=== PATIENT | female | born 1945 | race Caucasian/White ===

== ENCOUNTER → 2016-09-20 | Outpatient (CLI) | payer MEDICARE, BC ==
--- NOTE | 2016-09-21 09:26 | MM ---
Reason for exam: screening (asymptomatic). Last mammogram was performed 1 year ago. History: Patient is postmenopausal. Family history of breast cancer in daughter at age 40. Took hormonal contraceptives beginning at age 21. Took estrogen beginning at age 37. Taking other hormone. Physical Findings: A clinical breast exam by your physician is recommended on an annual basis and results should be correlated with mammographic findings. MG 3D Screening Mammo W/Cad Bilateral CC and MLO view(s) were taken. Prior study comparison: September 16, 2015, bilateral MG screening mammo w CAD. September 14, 2014, bilateral MG screening mammo w CAD. The breast tissue is extremely dense which could obscure a lesion on mammography. Benign calcifications. There is no dominant lesion. No significant changes when compared with prior studies. ASSESSMENT: Benign, BI-RAD 2 RECOMMENDATION: Routine screening mammogram of both breasts in 1 year.
== END | disposition home or self-care (01) ==
LOC: RADMAMWWP 11:36
PROVIDERS: ATTEND Obstetrics & Gynecology
DX: Z12.31 Encounter for screening mammogram for malignant neoplasm of breast (principal)
CPT/HCPCS: 77063; G0202

== ENCOUNTER → 2017-10-22 | Outpatient (CLI) | payer MEDICARE, BC ==
--- NOTE | 2017-10-23 10:04 | MM ---
Reason for exam: screening (asymptomatic). Last mammogram was performed 1 year and 1 month ago. History: Patient is postmenopausal. Family history of breast cancer in daughter at age 40. Took hormonal contraceptives beginning at age 21. Took estrogen beginning at age 37. Taking other hormone. Physical Findings: A clinical breast exam by your physician is recommended on an annual basis and results should be correlated with mammographic findings. MG 3D Screening Mammo W/Cad Bilateral CC and MLO view(s) were taken. Prior study comparison: September 20, 2016, bilateral MG 3d screening mammo w/cad. September 16, 2015, bilateral MG screening mammo w CAD. The breast tissue is heterogeneously dense. This may lower the sensitivity of mammography. Finding: There are typically benign vascular, dystrophic, round calcifications in both breasts. There is no discrete abnormality. ASSESSMENT: Benign, BI-RAD 2 RECOMMENDATION: Routine screening mammogram of both breasts in 1 year. Manage on a clinical basis with regard to left nipple itch.
== END | disposition home or self-care (01) ==
LOC: RADMAMWWP 12:59
PROVIDERS: ATTEND Obstetrics & Gynecology
DX: Z12.31 Encounter for screening mammogram for malignant neoplasm of breast (principal)
CPT/HCPCS: 77063; 77067

== ENCOUNTER → 2017-10-31 | Day surgery (SDC) | payer MEDICARE, BC ==
[2017-10-25 10:10] VITALS: BMI 36.6
[~2017-10-31] MED LIST: LACTATED RINGERS 1,000 ML IV SCH; LIDOCAINE 1% INJ 10MG/ML (20 ML MDV) ONE; PROPOFOL 10 MG/ML 20 ML VIAL IV ONE
[2017-10-31 11:43] VITALS: RESP 16; TEMP 97.2
--- NOTE | 2017-10-31 12:43 | P.PCN ---
Date of Procedure: 10/31/17 Procedure(s) Performed: BRIEF HISTORY: Patient is a 72-year-old pleasant white female, scheduled for an elective colonoscopy as a part of evaluation of change in bowel habits and rectal bleeding on 2 different occasions in the last 1 month duration. PROCEDURE PERFORMED: Colonoscopy with snare polypectomy PREOPERATIVE DIAGNOSIS: Abdominal pain/rectal bleeding. IV sedation per Anesthesia. PROCEDURE: After informed consent was obtained, the patient, was brought into the endoscopy unit. IV sedation was administered by Anesthesia under continuous monitoring. Digital rectal examination was normal. Initially the Olympus CF- 160 flexible video colonoscope was then inserted in the rectum, gradually advanced into the cecum without any difficulty. Careful examination was performed as the scope was gradually being withdrawn. Ileocecal valve and the appendiceal orifice were visualized and appeared normal. Prep was excellent. Mucosa of the cecum, appeared normal. In the ascending colon there was a 1 cm flat polyp that was removed by snare polypectomy. ascending colon, transverse colon, descending colon, sigmoid colon, and rectum appeared normal. Scattered sigmoid diverticulosis seen. Retroflexion was performed in the rectum and small internal hemorrhoids were seen. The patient tolerated the procedure well. IMPRESSION: 1 cm of flat ascending colon polyp serous was snare polypectomy Scattered sigmoid diverticulosis Small internal hemorrhoids RECOMMENDATIONS: Findings of this examination were discussed with the patient as well as her family. She was advised to follow with the biopsy results and have a repeat colonoscopy in 5 years..
[2017-10-31 13:01] VITALS: BP 145/79; PULSE 6
== END ==
LOC: ORWHC2ENDO 09:55
PROVIDERS: ATTEND Internal Medicine Gastroenterology
DX: D12.2 Benign neoplasm of ascending colon (principal); K57.30 Diverticulosis of large intestine without perforation or abscess without bleeding; K64.8 Other hemorrhoids; I10 Essential (primary) hypertension; J45.909 Unspecified asthma, uncomplicated; K21.9 Gastro-esophageal reflux disease without esophagitis; Z79.899 Other long term (current) drug therapy; Z79.82 Long term (current) use of aspirin; Z79.1 Long term (current) use of non-steroidal anti-inflammatories (NSAID); Z88.5 Allergy status to narcotic agent; Z88.1 Allergy status to other antibiotic agents
CPT/HCPCS: 88305; 45385; J2001; J2704

== ENCOUNTER 2018-06-19 08:58 | Inpatient (IN) | payer MEDICARE, BC ==
--- NOTE | 2018-06-19 09:25 | ED ---
General Adult HPI - General Chief complaint: Shortness of Breath Stated complaint: SOB Time Seen by Provider: 06/19/18 09:09 Source: patient, RN notes reviewed, old records reviewed Mode of arrival: wheelchair Limitations: no limitations - History of Present Illness Initial comments: 73-year-old female history of asthma, COPD, hypertension presenting with 4 days of worsening dyspnea. 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 She's had pulmonary function tests, she is given Symbicort and albuterol. She's had no improvement in her dyspnea over the past several days. It has worsened, she does complain of orthopnea and PND. She denies lower extremity pain or swelling. Denies significant chest pain, complains of some mild chest discomfort. No cough, no fever or chills. She was scheduled to receive an echocardiogram however this has not been completed. - Related Data Home Medications Medication Instructions Recorded Confirmed Aspirin 81 mg PO DAILY 03/09/15 06/19/18 Atenolol [Tenormin] 25 mg PO DAILY 03/09/15 06/19/18 Ferrous Sulfate [Feosol] 325 mg PO DAILY 03/09/15 06/19/18 Multivit with Calcium,Iron,Min 1 tab PO DAILY 03/09/15 06/19/18 [Women's Daily Multivitamin] Omeprazole [PriLOSEC] 20 mg PO AC-BID 03/09/15 06/19/18 Pravastatin Sodium [Pravachol] 40 mg PO HS 03/09/15 06/19/18 amLODIPine BESYLATE/BENAZEPRIL 1 cap PO HS 03/09/15 06/19/18 [Lotrel 5-10 mg Capsule] Meloxicam [Mobic] 15 mg PO DAILY 10/25/17 06/19/18 Tolterodine Tartrate [Detrol LA] 4 mg PO DAILY 10/25/17 06/19/18 Vit A/Vit C/Vit E/Zinc/Copper 1 cap PO BID 06/19/18 06/19/18 [ICAPS SOFTGEL] Allergies Allergy/AdvReac Type Severity Reaction Status Date / Time cephalexin monohydrate Allergy membranous Verified 06/19/18 10:04 [From Keflex] colitis adhesive AdvReac skin Verified 06/19/18 10:04 blisters metronidazole [From Flagyl] AdvReac Nausea & Verified 06/19/18 10:04 Vomiting morphine AdvReac Hallucinations, Verified 06/19/18 10:04 N/V oxycodone HCl [From Percocet] AdvReac Hallucinations, Verified 06/19/18 10:04 N/V Review of Systems ROS Statement: Those systems with pertinent positive or pertinent negative responses have been documented in the HPI. ROS Other: All systems not noted in ROS Statement are negative. Past Medical History Past Medical History: Asthma, Eye Disorder, GERD/Reflux, Hypertension, Osteoarthritis (OA) Additional Past Medical History / Comment(s): macular degeneration, retinoschesis, hx. colon polyps, IBS, anemia, ?PE years ago after taking HRT, 2 episodes of blood in stool & pain recently, wears pessary History of Any Multi-Drug Resistant Organisms: None Reported Past Surgical History: Adenoidectomy, Bladder Surgery, Hysterectomy, Joint Replacement, Tonsillectomy Additional Past Surgical History / Comment(s): both knees replaced, cataract surg., retinal surg., cervical fusion, bladder suspension Past Anesthesia/Blood Transfusion Reactions: Postoperative Nausea & Vomiting ( PONV) Additional Past Anesthesia/Blood Transfusion Reaction / Comment(s): difficult IV start Past Psychological History: No Psychological Hx Reported Smoking Status: Never smoker Past Alcohol Use History: None Reported Past Drug Use History: None Reported - Past Family History Daughter(s) Family Medical History: Cancer Additional Family Medical History / Comment(s): breast Father Family Medical History: Pulmonary Embolus General Exam Limitations: no limitations General appearance: alert, in no apparent distress Head exam: Present: atraumatic, normocephalic Eye exam: Present: normal appearance, PERRL Neck exam: Present: normal inspection. Absent: tenderness, meningismus Respiratory exam: Present: normal lung sounds bilaterally, respiratory distress (Tachypnea, conversational dyspnea). Absent: wheezes, rales Cardiovascular Exam: Present: regular rate, normal rhythm GI/Abdominal exam: Present: soft. Absent: distended, tenderness Extremities exam: Present: normal capillary refill, pedal edema (Trace pedal edema). Absent: calf tenderness Back exam: Present: normal inspection, full ROM. Absent: tenderness Neurological exam: Present: alert, oriented X3 Psychiatric exam: Present: normal affect, normal mood Skin exam: Present: warm, dry, intact. Absent: cyanosis, diaphoretic Course Vital Signs 06/19/18 06/19/18 06/19/18 09:11 10:00 11:00 Temperature 98.0 F Pulse Rate 84 69 61 Respiratory 20 18 18 Rate Blood Pressure 193/98 181/78 125/71 O2 Sat by Pulse 100 99 100 Oximetry 06/19/18 06/19/18 11:52 12:00 Temperature Pulse Rate 68 69 Respiratory Rate Blood Pressure O2 Sat by Pulse Oximetry EKG Findings - EKG Comments: EKG Findings:: EKG: Normal sinus rhythm, rate of 81, DE interval 160, QRS duration 74, QTC 434, no ST segment elevation or depression Medical Decision Making - Medical Decision Making 73-year-old female history of asthma and COPD presenting with 4 days of worsening dyspnea. Denies cough or fever. Denies significant chest pain. Chest x-ray obtained, does show peribronchial cuffing consistent with asthma or atypical pneumonia, patient's lungs had good air entry, there was still some concern for alternative causes of dyspnea, EKG is nonischemic, CBC within normal limits, troponin and BNP are normal. CT angiography is negative for PE. I reevaluation after steroids and albuterol, patient has minimal improvement. She will be kept for treatment of asthma exacerbation, she was scheduled for outpatient echo, this will be obtained during her admission. - Lab Data Result diagrams: 06/19/18 09:40 06/19/18 09:40 Lab Results 06/19/18 06/19/18 06/19/18 Range/Units 09:40 09:40 09:40 WBC 7.7 (3.8-10.6) k/uL RBC 4.35 (3.80-5.40) m/uL Hgb 13.6 (11.4-16.0) gm/dL Hct 40.8 (34.0-46.0) % MCV 93.9 (80.0-100.0) fL MCH 31.2 (25.0-35.0) pg MCHC 33.3 (31.0-37.0) g/dL RDW 13.4 (11.5-15.5) % Plt Count 197 (150-450) k/uL Neutrophils % 67 % Lymphocytes % 21 % Monocytes % 5 % Eosinophils % 4 % Basophils % 0 % Neutrophils # 5.2 (1.3-7.7) k/uL Lymphocytes # 1.6 (1.0-4.8) k/uL Monocytes # 0.4 (0-1.0) k/uL Eosinophils # 0.3 (0-0.7) k/uL Basophils # 0.0 (0-0.2) k/uL PT (9.0-12.0) sec INR (<1.2) APTT (22.0-30.0) sec Sodium 142 (137-145) mmol/L Potassium 4.9 (3.5-5.1) mmol/L Chloride 107 (98-107) mmol/L Carbon Dioxide 24 (22-30) mmol/L Anion Gap 11 mmol/L BUN 16 (7-17) mg/dL Creatinine 0.77 (0.52-1.04) mg/dL Est GFR (CKD-EPI)AfAm 87 (>60 ml/min/1.73 sqM) Est GFR (CKD-EPI)NonAf 76 (>60 ml/min/1.73 sqM) Glucose 79 (74-99) mg/dL Calcium 10.1 (8.4-10.2) mg/dL Magnesium 1.9 (1.6-2.3) mg/dL Total Bilirubin 0.5 (0.2-1.3) mg/dL AST 46 H (14-36) U/L ALT 44 (9-52) U/L Alkaline Phosphatase 81 (38-126) U/L Total Creatine Kinase 103 (30-135) U/L CK-MB (CK-2) 2.0 (0.0-2.4) ng/mL CK-MB (CK-2) Rel Index 1.9 Troponin I <0.012 (0.000-0.034) ng/mL NT-Pro-B Natriuret Pep pg/mL Total Protein 7.9 (6.3-8.2) g/dL Albumin 4.7 (3.5-5.0) g/dL 06/19/18 06/19/18 Range/Units 09:40 09:40 WBC (3.8-10.6) k/uL RBC (3.80-5.40) m/uL Hgb (11.4-16.0) gm/dL Hct (34.0-46.0) % MCV (80.0-100.0) fL MCH (25.0-35.0) pg MCHC (31.0-37.0) g/dL RDW (11.5-15.5) % Plt Count (150-450) k/uL Neutrophils % % Lymphocytes % % Monocytes % % Eosinophils % % Basophils % % Neutrophils # (1.3-7.7) k/uL Lymphocytes # (1.0-4.8) k/uL Monocytes # (0-1.0) k/uL Eosinophils # (0-0.7) k/uL Basophils # (0-0.2) k/uL PT 9.9 (9.0-12.0) sec INR 1.0 (<1.2) APTT 22.1 (22.0-30.0) sec Sodium (137-145) mmol/L Potassium (3.5-5.1) mmol/L Chloride (98-107) mmol/L Carbon Dioxide (22-30) mmol/L Anion Gap mmol/L BUN (7-17) mg/dL Creatinine (0.52-1.04) mg/dL Est GFR (CKD-EPI)AfAm (>60 ml/min/1.73 sqM) Est GFR (CKD-EPI)NonAf (>60 ml/min/1.73 sqM) Glucose (74-99) mg/dL Calcium (8.4-10.2) mg/dL Magnesium (1.6-2.3) mg/dL Total Bilirubin (0.2-1.3) mg/dL AST (14-36) U/L ALT (9-52) U/L Alkaline Phosphatase (38-126) U/L Total Creatine Kinase (30-135) U/L CK-MB (CK-2) (0.0-2.4) ng/mL CK-MB (CK-2) Rel Index Troponin I (0.000-0.034) ng/mL NT-Pro-B Natriuret Pep 307 pg/mL Total Protein (6.3-8.2) g/dL Albumin (3.5-5.0) g/dL Disposition Clinical Impression: Acute exacerbation of chronic obstructive airways disease Disposition: ADMITTED IP TO THIS HOSP Condition: Stable Is patient prescribed a controlled substance at d/c from ED?: No Referrals: Gelacio Wetzel MD [Primary Care Provider] - 1-2 days Decision to Admit Reason: Admit from EC Decision Date: 06/19/18 Decision Time: 12:20
[2018-06-19 10:01] LABS: Basophils % (A) 0 %; Eosinophils # (A) 0.3 k/uL (0-0.7); Eosinophils % (A) 4 %; HCT 40.8 % (34.0-46.0); HGB 13.6 gm/dL (11.4-16.0); Lymphocytes # (A) 1.6 k/uL (1.0-4.8); Lymphocytes % (A) 21 %; MCH 31.2 pg (25.0-35.0); MCHC 33.3 g/dL (31.0-37.0); MCV 93.9 fL (80.0-100.0); Mean Platelet Volume 8.4; Monocytes # (A) 0.4 k/uL (0-1.0); Monocytes % (A) 5 %; Neutrophils # (A) 5.2 k/uL (1.3-7.7); Neutrophils % (A) 67 %; Platelet Count 197 k/uL (150-450); RBC 4.35 m/uL (3.80-5.40); RDW 13.4 % (11.5-15.5); WBC 7.7 k/uL (3.8-10.6)
[2018-06-19 10:16] LABS: Partial Thromboplastin Time 22.1 sec (22.0-30.0); Prothrombin Time 9.9 sec (9.0-12.0)
[2018-06-19 10:26] LABS: Creatine Kinase 103 U/L (30-135)
[2018-06-19 10:27] LABS: Albumin 4.7 g/dL (3.5-5.0); Calcium 10.1 mg/dL (8.4-10.2); Magnesium 1.9 mg/dL (1.6-2.3); Potassium 4.9 mmol/L (3.5-5.1); Total Bilirubin 0.5 mg/dL (0.2-1.3); Total Protein 7.9 g/dL (6.3-8.2)
[2018-06-19 10:38] LABS: Troponin I <0.012 ng/mL (0.000-0.034)
[2018-06-19] MEDS ORDERED: IPRATROPIUM-ALBUTEROL 3 ML NEB INHALATION STA (10:46)
[2018-06-19] MEDS ORDERED: DEXAMETHASONE SOD PHOSPHATE 10 MG/ML 1 ML VIAL IV STA (10:46)
--- NOTE | 2018-06-19 10:46 | XR ---
EXAMINATION TYPE: XR chest 2V DATE OF EXAM: 06/19/2018 COMPARISON: None HISTORY: 73-year-old female difficulty breathing TECHNIQUE: PA and lateral views FINDINGS: Heart normal size. Aorta within normal limits. Diffuse interstitial and peribronchial densities. Roun ded retrocardiac opacity with lucency suggests a moderate-sized hiatal hernia. ACDF hardware. No cons olidation or pleural effusion. IMPRESSION: Prominent interstitial changes and peribronchial cuffing. Correlate for bronchitis, uncontrolled asth ma, or atypical pneumonias. Moderate size hiatal hernia.
--- NOTE | 2018-06-19 11:53 | CT ---
EXAMINATION TYPE: CT angio chest DATE OF EXAM: 06/19/2018 COMPARISON: NONE HISTORY: Shortness of breath. CT DLP: 312.1 mGycm. Automated Exposure Control for Dose Reduction was Utilized. CONTRAST: CTA scan of the thorax is performed with IV Contrast, patient injected with 100 mL of Isovue 370, pul monary embolism protocol. MIP Images are created on CT scanner and reviewed. FINDINGS: LUNGS: The lungs are grossly clear other than bibasilar subsegmental dependent atelectasis., there is no concerning parenchymal mass or nodule identified. There is no pleural effusion or pneumothorax seen. The tracheobronchial tree is patent. MEDIASTINUM: There is satisfactory enhancement of the pulmonary artery and its branches, there is no CT evidence for pulmonary embolism. There are no greater than 1 cm hilar or mediastinal lymph nodes. No cardiomegaly or pericardial effusion is seen. No significant coronary artery calcifications on CT. Heart is mildly enlarged. OTHER: There is a partial intrathoracic stomach. There is partial visualization of an anterior cervic al fusion device and mild multilevel degenerative changes of the thoracolumbar spine. There is a flui d attenuated 2.0 cm left hepatic cyst. Benign dystrophic calcifications are seen within the breast pa renchyma. IMPRESSION: 1. No evidence of pulmonary embolus. 2. Partial intrathoracic stomach. 4. Mild cardiomegaly.
[2018-06-19] MEDS: AZITHROMYCIN 500 MG TAB PO SCH (14:35)
--- NOTE | 2018-06-19 15:21 | P.HPIM ---
History of Present Illness 73 yo F [facility] of asthma/copd, fibromyalgia, GERD, hypertesnion , hyperlipidemia, degenerative joint disease pulmonary embolism, GI bleed bilateral macular degeneration of the eye . She is a patient of Dr. Wetzel . SHE presents because of dyspnea , orthopnea and paroxysmal nocturnal dyspnea . of 5-6 days duration, started over the last weekend to the degree that she wake up on Saturday night 6 times for her breathing treatment. She went to her PCP office Dr. Wetzel last Saturday for appointment and he found her lung is clear and oxygenation saturation is 99%, he did echocardiogram which she didn't get the result of and put her her on Symbicort however she did not improve much in 2 days she was at her office where she's working with an ALLERGY doctor noted that she is short of breath and he she did pulmonary function test for her and told her that was normal and he has some breathing treatment which she stated that make her 100% better. 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 Patient denies chest pain but she has some central chest tightness. No fever. No change in urine or bowel habits. No leg swelling. On admission her CBC and CMP were unremarkable. Saturating 100% on 2 L oxygen via NC. Vicryls looks stable. EKG shows normal sinus rhythm at 81 bpm, no significant ST deviation. Patient has history of PE in 1996, she was at age 37 when she had hysterectomy and they put her on hormonal replacement therapy, and that She developed shortness of right than the throat she had PE but as per patient they could not see it. They treated her with stopping the hormone therapy and baby aspirin and never came back to her again as per patient. Patient never smoked. And she has a topical diet last . Patient states she is ALLERGIC to molds and trees In the emergency room she had CTPA of the chest which shows no PE, mild cardiomegaly. In the emergency room she was started on Zithromax and Solu-Medrol this is breathing treatment and oxygen. Review of Systems CONSTITUTIONAL: No fever, no malaise, no fatigue. HEENT: No recent visual problems or hearing problems. Denied any sore throat. CARDIOVASCULAR: No orthopnea, PND, no palpitations, no syncope. PULMONARY: No shortness of breath, no cough, no hemoptysis. GASTROINTESTINAL: No diarrhea, no nausea, no vomiting, no abdominal pain. Normoactive bowel sounds. NEUROLOGICAL: No headaches, no weakness, no numbness. HEMATOLOGICAL: Denies any bleeding or petechiae. GENITOURINARY: Denies any burning micturition, frequency, or urgency. MUSCULOSKELETAL/RHEUMATOLOGICAL: Denies any joint pain, swelling, or any muscle pain. ENDOCRINE: Denies any polyuria or polydipsia. Past Medical History Past Medical History: Asthma, COPD, Eye Disorder, Fibromyalgia, GERD/Reflux, GI Bleed, Hyperlipidemia, Hypertension, Osteoarthritis (OA), Pneumonia, Pulmonary Embolus (PE) Additional Past Medical History / Comment(s): Possible TIA, pulmonary embolism 1996/was on HRT, bilateral macular degeneration-R eye wet/L eye dry, bilateral eyes reinoschlesis, difficulty with night vision, arthritis multiple joints, anemia, colon polyps-benign, lower GI bleed x 2 thought d/t hemorrhoids, IBS, diverticulosis, kidney stones, UTIs, past hemorrhagic cystitis, cystocele/ pessary, past L sided rib fractures. History of Any Multi-Drug Resistant Organisms: None Reported Past Surgical History: Adenoidectomy, Bladder Surgery, Hysterectomy, Joint Replacement, Orthopedic Surgery, Tonsillectomy Additional Past Surgical History / Comment(s): Colonoscopies/benign polypectomy , bladder suspension, D&C, bilateral total knee replacements, cervical fusion with titanium plate, bilateral cataract removals/lens implants, R eye injections every 6 weeks, L retinol hole/patched. Past Anesthesia/Blood Transfusion Reactions: Postoperative Nausea & Vomiting ( PONV) Additional Past Anesthesia/Blood Transfusion Reaction / Comment(s): difficult IV start Smoking Status: Never smoker - Past Family History Daughter(s) Family Medical History: Cancer Additional Family Medical History / Comment(s): breast Father Family Medical History: Pulmonary Embolus Additional Family Medical History / Comment(s): Father of a PE at the age of 82 yrs. Mother Family Medical History: Dementia, Eye Disorder, Hypertension Additional Family Medical History / Comment(s): Mother had severe arthritis, macular degeneration and glaucoma. She at the age of 92 yrs. Medications and Allergies Home Medications Medication Instructions Recorded Confirmed Type Aspirin 81 mg PO DAILY 03/09/15 06/19/18 History Atenolol [Tenormin] 25 mg PO DAILY 03/09/15 06/19/18 History Ferrous Sulfate [Feosol] 325 mg PO DAILY 03/09/15 06/19/18 History Multivit with Calcium,Iron,Min 1 tab PO DAILY 03/09/15 06/19/18 History [Women's Daily Multivitamin] Omeprazole [PriLOSEC] 20 mg PO AC-BID 03/09/15 06/19/18 History Pravastatin Sodium [Pravachol] 40 mg PO HS 03/09/15 06/19/18 History amLODIPine BESYLATE/BENAZEPRIL 1 cap PO HS 03/09/15 06/19/18 History [Lotrel 5-10 mg Capsule] Meloxicam [Mobic] 15 mg PO DAILY 10/25/17 06/19/18 History Tolterodine Tartrate [Detrol LA] 4 mg PO DAILY 10/25/17 06/19/18 History Vit A/Vit C/Vit E/Zinc/Copper 1 cap PO BID 06/19/18 06/19/18 History [ICAPS SOFTGEL] Allergies Allergy/AdvReac Type Severity Reaction Status Date / Time cephalexin monohydrate Allergy membranous Verified 06/19/18 10:04 [From Keflex] colitis adhesive AdvReac skin Verified 06/19/18 10:04 blisters metronidazole [From Flagyl] AdvReac Nausea & Verified 06/19/18 10:04 Vomiting morphine AdvReac Hallucinations, Verified 06/19/18 10:04 N/V oxycodone HCl [From Percocet] AdvReac Hallucinations, Verified 06/19/18 10:04 N/V Physical Exam Vitals: Vital Signs Temp Pulse Resp BP Pulse Ox 06/19/18 13:00 76 18 168/79 96 06/19/18 12:00 71 18 122/98 100 06/19/18 11:52 68 06/19/18 11:00 61 18 125/71 100 06/19/18 10:00 69 18 181/78 99 06/19/18 09:11 98.0 F 84 20 193/98 100 Intake and Output 06/18/18 06/19/18 06/19/18 22:59 06:59 14:59 Other: Weight 88.451 kg GENERAL: The patient is alert and oriented x3, not in any acute distress. Well developed, well nourished. HEENT: Pupils are round and equally reacting to light. EOMI. No scleral icterus. No conjunctival pallor. Normocephalic, atraumatic. No pharyngeal erythema. No thyromegaly. CARDIOVASCULAR: S1 and S2 present. No murmurs, rubs, or gallops. -PULMONARY: Chest is clear to auscultation, no crackles. Scattered wheezing ABDOMEN: Soft, nontender, nondistended, normoactive bowel sounds. No palpable organomegaly. MUSCULOSKELETAL: No joint swelling or deformity. EXTREMITIES: No cyanosis, clubbing, or pedal edema. NEUROLOGICAL: Gross neurological examination did not reveal any focal deficits. SKIN: No rashes. Results CBC & Chem 7: 06/19/18 09:40 06/19/18 09:40 Labs: Abnormal Lab Results - Last 24 Hours (Table) 06/19/18 Range/Units 09:40 AST 46 H (14-36) U/L Thrombosis Risk Factor Assmnt - Choose All That Apply Any of the Below Risk Factors Present?: Yes Each Factor Represents 1 point: Abnormal pulmonary function (COPD), Obesity ( BMI >25) Other Risk Factors: Yes Each Risk Factor Represents 3 Points: Age 75 years or older, History of DVT/PE Other congenital or acquired thrombophilia - If yes, enter type in comment: No Thrombosis Risk Factor Assessment Total Risk Factor Score: 8 Thrombosis Risk Factor Assessment Level: High Risk Assessment and Plan Assessment: Acute dyspnea, possible asthma exacerbation versus COPD versus others. Rule out cardiac causes. fibromyalgiA GERD, Hypertension Hyperlipidemia Digital joint disease Pulmonary embolism GI bleed Bilateral macular degeneration of the eyes Plan: This is a pleasant 73 years old female who presents because of COPD exacerbation. Labs and medication were reviewed. Continue with steroids, breathing treatments and oxygen. Continue same treatment. Continue with symptomatic treatment. Resume home medication. Monitor labs and vitals. GI and DVT prophylaxis. Pulmonary and cardiology consult. Echocardiogram. Further recommendation the clinical course with the patient DVT prophylaxis:Subcutaneous heparin GI prophylaxis:Pepcid PT/OT: pending Prognosis is guarded
[2018-06-19] MEDS: IPRATROPIUM-ALBUTEROL 3 ML NEB INHALATION SCH ×2 (15:58→20:41)
[2018-06-19] MEDS: methylPREDNISolone SOD SUCCI 125 MG/2 ML VIAL IV SCH (17:39)
--- NOTE | 2018-06-19 18:06 | ECHOF ---
Referral Reason:Dyspnea MEASUREMENTS -------- HEIGHT: 157.5 cm WEIGHT: 88.5 kg BP: IVSd: 0.8 cm (0.6 - 1.1) LVIDd: 4.8 cm (3.9 - 5.3) LVPWd: 1.0 cm (0.6 - 1.1) IVSs: 1.0 cm LVIDs: 4.1 cm LVPWs: 1.0 cm LA Diam: 3.6 cm (2.7 - 3.8) Ao Diam: 3.2 cm (2.0 - 3.7) AV Cusp: 1.7 cm (1.5 - 2.6) LA Diam: 4.2 cm (2.7 - 3.8) MV EXCURSION: 24.989 mm (> 18.000) MV EF SLOPE: 127 mm/s (70 - 150) EPSS: 1.5 cm MV E Dewey: 0.71 m/s MV DecT: 225 ms MV A Dewey: 0.93 m/s MV E/A Ratio: 0.76 RAP: 5.00 mmHg RVSP: 15.10 mmHg FINDINGS -------- Sinus rhythm. This was a technically good study. LV size, wall thickness and systolic function are normal, with an EF greater than 55%. The left beth tricular size is normal. The right ventricle is normal in size. The left atrial size is normal. The right atrial size is normal. The aortic valve is trileaflet, and appears structurally normal. No aortic stenosis or regurgitation. Mild mitral regurgitation is present. Mild tricuspid regurgitation present. Right ventricular systolic pressure is normal at < 35 mmHg. There is no evidence of pulmonary hypertension. There is no pulmonic regurgitation present. The aortic root size is normal. There is no pericardial effusion. CONCLUSIONS -------- 1. LV size, wall thickness and systolic function are normal, with an EF greater than 55%. 2. The left ventricular size is normal. 3. The right ventricle is normal in size. 4. The left atrial size is normal. 5. The right atrial size is normal. 6. The aortic valve is trileaflet, and appears structurally normal. No aortic stenosis or regurgitati on. 7. Mild mitral regurgitation is present. 8. Mild tricuspid regurgitation present. 9. Right ventricular systolic pressure is normal at < 35 mmHg. 10. There is no evidence of pulmonary hypertension. 11. There is no pulmonic regurgitation present. 12. The aortic root size is normal. 13. There is no pericardial effusion. VACUUM FURNACE OPERATOR: Shanika Gilliland RDCS
[2018-06-19] MEDS ORDERED: LISINOPRIL 10 MG TAB PO SCH (21:00)
[2018-06-19] MEDS: PRAVASTATIN SODIUM 40 MG TAB PO SCH (21:52)
[2018-06-19] MEDS: FAMOTIDINE 20 MG/2 ML VIAL IV SCH (21:54)
[2018-06-19] MEDS: VIT A,C & E-LUTEIN-MINERALS 1 EACH TAB PO SCH (21:54)
[2018-06-19] MEDS: amLODIPine 5 MG TAB PO SCH (21:54)
[2018-06-19] MEDS: HEPARIN SODIUM,PORCINE 5,000 UNIT/ML 1 ML VIAL SQ SCH (21:55)
[2018-06-20] MEDS: methylPREDNISolone SOD SUCCI 125 MG/2 ML VIAL IV SCH ×5 (00:57→22:59)
[2018-06-20] MEDS: IPRATROPIUM-ALBUTEROL 3 ML NEB INHALATION PRN ×2 (01:10→05:05)
[2018-06-20] MEDS ORDERED: ACETAMINOPHEN TAB 325 MG TAB PO PRN (04:52)
[2018-06-20] MEDS: IPRATROPIUM-ALBUTEROL 3 ML NEB INHALATION SCH ×4 (07:29→20:24)
[2018-06-20] MEDS ORDERED: MELOXICAM 7.5 MG TAB PO SCH (09:00)
--- NOTE | 2018-06-20 09:13 | P.CNPUL ---
History of Present Illness Consult date: 06/20/18 Reason for consult: dyspnea, cough, asthma, COPD Chief complaint: Shortness of breath, chest tightness, asthma exacerbation History of present illness: Pulmonary consult dated 06/20/2018 73-year-old female with history of ALLERGIC asthma and hypertension. 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 Her medications primarily include ALLERGY shots and albuterol inhaler. It appears that she probably has very mild intermittent asthma. For some reason though, over the last 7 or so days, her asthma has been more active. She saw her primary doctor. He recommended a Symbicort inhaler. That seemed to help initially just a bit. 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 Her complaints included shortness of breath chest tightness wheezing and coughing. Not coughing up any phlegm. There is no fever or chills. No chest discomfort or chest pain. Her medications at home include aspirin a day atenolol iron multivitamin omeprazole pravastatin amlodipine/been Astepro aerobic Detrol LA and vitamins. ALLERGIES include oxycodone and morphine Flagyl adhesive tape and Keflex. Her medical problems include ALLERGIC asthma GERD hypertension osteoarthritis hyperlipidemia macular degeneration, Polyps and irritable bowel syndrome and anemia. She does not see a assistant center manager for asthma but rather an supervisor process testing. Review of Systems A 14 point review of system is positive for shortness of breath chest tightness wheezing and cough. Past Medical History Past Medical History: Asthma, COPD, Eye Disorder, Fibromyalgia, GERD/Reflux, GI Bleed, Hyperlipidemia, Hypertension, Osteoarthritis (OA), Pneumonia, Pulmonary Embolus (PE) Additional Past Medical History / Comment(s): Possible TIA, pulmonary embolism 1996/was on HRT, bilateral macular degeneration-R eye wet/L eye dry, bilateral eyes reinoschlesis, difficulty with night vision, arthritis multiple joints, anemia, colon polyps-benign, lower GI bleed x 2 thought d/t hemorrhoids, IBS, diverticulosis, kidney stones, UTIs, past hemorrhagic cystitis, cystocele/ pessary, past L sided rib fractures. History of Any Multi-Drug Resistant Organisms: None Reported Past Surgical History: Adenoidectomy, Bladder Surgery, Hysterectomy, Joint Replacement, Orthopedic Surgery, Tonsillectomy Additional Past Surgical History / Comment(s): Colonoscopies/benign polypectomy , bladder suspension, D&C, bilateral total knee replacements, cervical fusion with titanium plate, bilateral cataract removals/lens implants, R eye injections every 6 weeks, L retinol hole/patched. Past Anesthesia/Blood Transfusion Reactions: Postoperative Nausea & Vomiting ( PONV) Additional Past Anesthesia/Blood Transfusion Reaction / Comment(s): difficult IV start Smoking Status: Never smoker - Past Family History Daughter(s) Family Medical History: Cancer Additional Family Medical History / Comment(s): breast Father Family Medical History: Pulmonary Embolus Additional Family Medical History / Comment(s): Father of a PE at the age of 82 yrs. Mother Family Medical History: Dementia, Eye Disorder, Hypertension Additional Family Medical History / Comment(s): Mother had severe arthritis, macular degeneration and glaucoma. She at the age of 92 yrs. Medications and Allergies Home Medications Medication Instructions Recorded Confirmed Type Aspirin 81 mg PO DAILY 03/09/15 06/19/18 History Atenolol [Tenormin] 25 mg PO DAILY 03/09/15 06/19/18 History Ferrous Sulfate [Feosol] 325 mg PO DAILY 03/09/15 06/19/18 History Multivit with Calcium,Iron,Min 1 tab PO DAILY 03/09/15 06/19/18 History [Women's Daily Multivitamin] Omeprazole [PriLOSEC] 20 mg PO AC-BID 03/09/15 06/19/18 History Pravastatin Sodium [Pravachol] 40 mg PO HS 03/09/15 06/19/18 History amLODIPine BESYLATE/BENAZEPRIL 1 cap PO HS 03/09/15 06/19/18 History [Lotrel 5-10 mg Capsule] Meloxicam [Mobic] 15 mg PO DAILY 10/25/17 06/19/18 History Tolterodine Tartrate [Detrol LA] 4 mg PO DAILY 10/25/17 06/19/18 History Vit A/Vit C/Vit E/Zinc/Copper 1 cap PO BID 06/19/18 06/19/18 History [ICAPS SOFTGEL] Allergies Allergy/AdvReac Type Severity Reaction Status Date / Time cephalexin monohydrate Allergy membranous Verified 06/19/18 10:04 [From Keflex] colitis adhesive AdvReac skin Verified 06/19/18 10:04 blisters metronidazole [From Flagyl] AdvReac Nausea & Verified 06/19/18 10:04 Vomiting morphine AdvReac Hallucinations, Verified 06/19/18 10:04 N/V oxycodone HCl [From Percocet] AdvReac Hallucinations, Verified 06/19/18 10:04 N/V Physical Exam Osteopathic Statement: *. No significant issues noted on an osteopathic structural exam other than those noted in the History and Physical/Consult. Vitals: Vital Signs Temp Pulse Pulse Resp BP BP Pulse Ox 06/20/18 07:38 96 06/20/18 07:31 97 97 06/20/18 06:05 97.8 F 101 H 18 144/70 96 06/20/18 05:16 84 06/20/18 05:05 80 06/20/18 01:20 89 06/20/18 01:10 91 06/19/18 23:00 98.2 F 89 16 135/75 96 06/19/18 20:55 82 06/19/18 20:43 82 95 06/19/18 16:08 72 06/19/18 15:59 76 06/19/18 15:32 98.2 F 79 16 157/81 97 06/19/18 13:00 76 18 168/79 96 06/19/18 12:00 71 18 122/98 100 06/19/18 11:52 68 06/19/18 11:00 61 18 125/71 100 06/19/18 10:00 69 18 181/78 99 06/19/18 09:11 98.0 F 84 20 193/98 100 Intake and Output 06/19/18 06/20/18 06/20/18 22:59 06:59 14:59 Intake Total 1300 Balance 1300 Intake: Oral 1300 Other: # Voids 1 1 No acute distress, oriented 3. No acute respiratory distress. No audible wheezing. No use of accessory muscles. HEENT examination is grossly unremarkable. Mucous membranes are moist. No oral lesions. Neck supple. Full range of motion. No adenopathy thyromegaly or neck vein distention. Cardiovascular examination reveals regular rhythm rate. S1-S2 normal. No S3 or S4. No discernible murmur noted. Lungs reveal clear breath sounds on normal respiratory effort. No wheezes rhonchi or crackles appreciated. On forced maneuver though, there is prolongation in expiratory wheezes. Breath sounds equal bilaterally. Abdomen soft bowel sounds are heard. No masses or tenderness. Extremities are intact. No cyanosis clubbing or edema. Skin is without rash or lesion. Neurologic examination is brief but nonfocal. Results - Laboratory Findings CBC and BMP: 06/19/18 09:40 10 09:40 PT/INR, D-dimer PT 9.9 sec (9.0-12.0) 06/19/18 09:40 INR 1.0 (<1.2) 06/19/18 09:40 Abnormal lab findings: Abnormal Labs 06/19/18 09:40 AST 46 H - Diagnostic Findings Chest x-ray: report reviewed, image reviewed CT scan - chest: report reviewed, image reviewed (Labs, x-rays, and medications are reviewed.) Assessment and Plan Assessment: Assessment Asthma exacerbation in a patient with previously mild intermittent ALLERGIC asthma, currently maintained on a rescue inhaler and ALLERGY shots History of hypertension History of macular degeneration History of hyperlipidemia Stress urinary incontinence DJD History of anemia Plan: Plan dated 06/20/2018 Her lab data is reviewed. CBC is completely normal. PT and INR are normal. Sodium potassium chloride CO2 anion gap BUN and creatinine are all normal. Troponins were negative 2. Chest x-ray is essentially negative. Computed tomography scan of the chest reveals no pulmonary embolism and a hiatal hernia. No markos infiltrates are seen. Current medications include oral Zithromax updrafts with albuterol and Atrovent and Solu-Medrol. The patient is doing well and could be discharged home on prednisone with a burst and taper short course of oral antibiotics and the Symbicort 160/4.5, 2 puffs twice a day. In addition, the patient should continue using her rescue inhaler or her a B12 updraft machine as needed. She should follow-up with her supervisor process testing, Dr. Cruz. No additional recommendations are made. Prognosis is generally good. Time with Patient: Greater than 30
[2018-06-20] MEDS: OXYBUTYNIN 10 MG TAB.ER.24 PO SCH (09:21)
[2018-06-20] MEDS: AZITHROMYCIN 500 MG TAB PO SCH (09:21)
[2018-06-20] MEDS: FERROUS SULFATE 325 MG TAB PO SCH (09:22)
[2018-06-20] MEDS: PANTOPRAZOLE 40 MG TABLET PO SCH (09:22)
[2018-06-20] MEDS: HEPARIN SODIUM,PORCINE 5,000 UNIT/ML 1 ML VIAL SQ SCH ×2 (09:23→21:53)
[2018-06-20] MEDS: FAMOTIDINE 20 MG/2 ML VIAL IV SCH (09:23)
[2018-06-20] MEDS: MULTIVITAMINS, THERA 1 EACH TAB PO SCH (09:23)
[2018-06-20] MEDS: VIT A,C & E-LUTEIN-MINERALS 1 EACH TAB PO SCH (09:23)
[2018-06-20] MEDS: ASPIRIN 81 MG PO SCH (09:24)
[2018-06-20] MEDS: ATENOLOL 25 MG TAB PO SCH (09:24)
[2018-06-20 09:37] LABS: Basophils % (A) 0 %; Eosinophils % (A) 0 %; HGB 12.9 gm/dL (11.4-16.0); Lymphocytes # (A) 0.8 k/uL (1.0-4.8); Lymphocytes % (A) 7 %; MCH 31.5 pg (25.0-35.0); MCHC 33.1 g/dL (31.0-37.0); MCV 95.4 fL (80.0-100.0); Mean Platelet Volume 7.9; Monocytes # (A) 0.1 k/uL (0-1.0); Monocytes % (A) 1 %; Neutrophils # (A) 10.9 k/uL (1.3-7.7); Neutrophils % (A) 92 %; Platelet Count 219 k/uL (150-450); RBC 4.09 m/uL (3.80-5.40); RDW 13.7 % (11.5-15.5)
[2018-06-20 09:40] LABS: Calcium 10.1 mg/dL (8.4-10.2); Potassium 4.2 mmol/L (3.5-5.1)
--- NOTE | 2018-06-20 12:23 | P.CRDCN ---
History of Present Illness History of present illness: This is a pleasant 73-year-old female past medical history significant for asthma, hypertension, dyslipidemia, remote history of pulmonary embolism in 1996 and gastroesophageal reflux disease. She denies history of coronary artery disease and is never seen a borematic operator for any reason. We have asked to see her in consultation for shortness of breath. She states for the previous week or so she has been experiencing intermittent episodes of shortness of breath. She did some work in her yard prior to this starting and has significant ALLERGIES to mold so she was associating her symptoms with an ALLERGIC type reaction. She would be short of breath at rest as well as with exertion. He was experiencing intermittent episodes of orthopnea. 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 By the time she arrived to the volunteer office she was significantly short of breath. She denies ever having had symptoms of chest pain, dizziness or palpitations. Her breathing seems to have improved since admission. Blood pressure was elevated at 193/98 when she first was checked in the emergency department. Her blood pressure has been fluctuating greatly since admission. EKG reveals sinus mechanism with no acute ST or T wave abnormalities noted. CT angio chest is negative for PE. Chest x-ray evidence of prominent interstitial changes and peribronchial coughing a moderate sized hiatal hernia. Laboratory data reviewed, WBC 12.0, hemoglobin 12.9, platelets 219, sodium 140, potassium 4.2, magnesium 1.9, creatinine 0.79, cardiac enzymes negative 2, and T proBNP 307. Echocardiogram obtained reveals preserved left ventricular systolic function with ejection fraction greater than 55% and no valvular abnormalities noted. Current cardiac medications include atenolol 25 mg daily, aspirin 81 mg daily, pravastatin 40 mg daily and amlodipine/benazepril 5/10 mg daily. At the time of my exam: CONSTITUTIONAL: Denies fever. Denies chills. EYES: Denies blurred vision. Denies vision changes. Denies eye pain. EARS, NOSE, MOUTH & THROAT: Denies headache. Denies sore throat. Denies ear pain. CARDIOVASCULAR: Denies chest pain. Complains of shortness of breath. Complains of orthopnea. Complains of PND. Denies palpitations. RESPIRATORY: Denies cough. GASTROINTESTINAL: Denies abdominal pain. Denies diarrhea. Denies constipation. Denies nausea. Denies vomiting. MUSCULOSKELETAL: Denies myalgias. INTEGUMENTARY: Denies pruitis. Denies rash. NEUROLOGIC: Denies numbness. Denies tingling. Denies weakness. PSYCHIATRIC: Denies anxiety. Denies depression. ENDOCRINE: Denies fatigue. Denies weight change. Denies polydipsia. Denies polyurina. GENITOURINARY: Denies burning, hematuria or urgency with micturation. HEMATOLOGIC: Denies history of anemia. Denies bleeding. Blood pressure 144/70 heart rate 101 afebrile maintaining oxygen saturation on room air GENERAL: This is a 73-year-old female in no apparent distress at the time of my examination. HEENT: Head is atraumatic, normocephalic. Pupils are equal, round. Sclerae anicteric. Conjunctivae are clear. Mucous membranes of the mouth are moist. Neck is supple. There is no jugular venous distention. No carotid bruit is heard. LUNGS: Clear to auscultation no wheezes, rales or rhonchi. No chest wall tenderness is noted on palpation or with deep breathing. HEART: Regular rate and rhythm without murmurs, rubs or gallops. S1 and S2 heard. ABDOMEN: Soft, nontender. Bowel sounds are heard. No organomegaly noted. EXTREMITIES: No evidence of peripheral edema and no calf tenderness noted. VASCULAR: Radial and dorsalis pedis pulses palpated, no evidence of clubbing. NEUROLOGIC: Patient is awake, alert and oriented x3. ASSESSMENT Shortness of breath possibly related to asthma or possibly unstable angina. Hypertension, uncontrolled Dyslipidemia Asthma with mild exacerbation PLAN An acute coronary event has been ruled out. Increase lisinopril to 20 mg daily. Give first dose now. Continue amlodipine, will consider increasing if blood pressure continues to be elevated. Increase activity and ambulation. Lengthy discussion had with the patient regarding her symptoms. We want to keep her through the weekend and get her blood pressure under more optimal control. If her symptoms do not improve with blood pressure control we will consider further testing. NPO after midnight Saturday for consideration of further testing. Thank you kindly for this consultation. Nurse Practitioner note has been reviewed, I agree with a documented findings and plan of care. Patient was seen and examined. Past Medical History Past Medical History: Asthma, COPD, Eye Disorder, Fibromyalgia, GERD/Reflux, GI Bleed, Hyperlipidemia, Hypertension, Osteoarthritis (OA), Pneumonia, Pulmonary Embolus (PE) Additional Past Medical History / Comment(s): Possible TIA, pulmonary embolism 1996/was on HRT, bilateral macular degeneration-R eye wet/L eye dry, bilateral eyes reinoschlesis, difficulty with night vision, arthritis multiple joints, anemia, colon polyps-benign, lower GI bleed x 2 thought d/t hemorrhoids, IBS, diverticulosis, kidney stones, UTIs, past hemorrhagic cystitis, cystocele/ pessary, past L sided rib fractures. History of Any Multi-Drug Resistant Organisms: None Reported Past Surgical History: Adenoidectomy, Bladder Surgery, Hysterectomy, Joint Replacement, Orthopedic Surgery, Tonsillectomy Additional Past Surgical History / Comment(s): Colonoscopies/benign polypectomy , bladder suspension, D&C, bilateral total knee replacements, cervical fusion with titanium plate, bilateral cataract removals/lens implants, R eye injections every 6 weeks, L retinol hole/patched. Past Anesthesia/Blood Transfusion Reactions: Postoperative Nausea & Vomiting ( PONV) Additional Past Anesthesia/Blood Transfusion Reaction / Comment(s): difficult IV start Smoking Status: Never smoker - Past Family History Daughter(s) Family Medical History: Cancer Additional Family Medical History / Comment(s): breast Father Family Medical History: Pulmonary Embolus Additional Family Medical History / Comment(s): Father of a PE at the age of 82 yrs. Mother Family Medical History: Dementia, Eye Disorder, Hypertension Additional Family Medical History / Comment(s): Mother had severe arthritis, macular degeneration and glaucoma. She at the age of 92 yrs. Medications and Allergies Home Medications Medication Instructions Recorded Confirmed Type Aspirin 81 mg PO DAILY 03/09/15 06/19/18 History Atenolol [Tenormin] 25 mg PO DAILY 03/09/15 06/19/18 History Ferrous Sulfate [Feosol] 325 mg PO DAILY 03/09/15 06/19/18 History Multivit with Calcium,Iron,Min 1 tab PO DAILY 03/09/15 06/19/18 History [Women's Daily Multivitamin] Omeprazole [PriLOSEC] 20 mg PO AC-BID 03/09/15 06/19/18 History Pravastatin Sodium [Pravachol] 40 mg PO HS 03/09/15 06/19/18 History amLODIPine BESYLATE/BENAZEPRIL 1 cap PO HS 03/09/15 06/19/18 History [Lotrel 5-10 mg Capsule] Meloxicam [Mobic] 15 mg PO DAILY 10/25/17 06/19/18 History Tolterodine Tartrate [Detrol LA] 4 mg PO DAILY 10/25/17 06/19/18 History Vit A/Vit C/Vit E/Zinc/Copper 1 cap PO BID 06/19/18 06/19/18 History [ICAPS SOFTGEL] Allergies Allergy/AdvReac Type Severity Reaction Status Date / Time cephalexin monohydrate Allergy membranous Verified 06/19/18 10:04 [From Keflex] colitis adhesive AdvReac skin Verified 06/19/18 10:04 blisters metronidazole [From Flagyl] AdvReac Nausea & Verified 06/19/18 10:04 Vomiting morphine AdvReac Hallucinations, Verified 06/19/18 10:04 N/V oxycodone HCl [From Percocet] AdvReac Hallucinations, Verified 06/19/18 10:04 N/V Physical Exam Vitals: Vital Signs Temp Pulse Pulse Resp BP BP Pulse Ox 06/20/18 11:06 92 06/20/18 10:59 92 06/20/18 08:00 18 06/20/18 07:38 96 06/20/18 07:31 97 97 06/20/18 06:05 97.8 F 101 H 18 144/70 96 06/20/18 05:16 84 06/20/18 05:05 80 06/20/18 01:20 89 06/20/18 01:10 91 06/19/18 23:00 98.2 F 89 16 135/75 96 06/19/18 20:55 82 06/19/18 20:43 82 95 06/19/18 16:08 72 06/19/18 15:59 76 06/19/18 15:32 98.2 F 79 16 157/81 97 06/19/18 13:00 76 18 168/79 96 Intake and Output 06/19/18 06/20/18 06/20/18 22:59 06:59 14:59 Intake Total 1300 200 Balance 1300 200 Intake: Oral 1300 200 Other: # Voids 1 1 Results 06/20/18 09:04 06/20/18 09:04 Cardiac Enzymes 06/19/18 Range/Units 20:41 Troponin I <0.012 (0.000-0.034) ng/mL CBC 06/20/18 Range/Units 09:04 WBC 12.0 H (3.8-10.6) k/uL RBC 4.09 (3.80-5.40) m/uL Hgb 12.9 (11.4-16.0) gm/dL Hct 39.0 (34.0-46.0) % Plt Count 219 (150-450) k/uL Comprehensive Metabolic Panel 06/20/18 Range/Units 09:04 Sodium 140 (137-145) mmol/L Potassium 4.2 (3.5-5.1) mmol/L Chloride 105 (98-107) mmol/L Carbon Dioxide 19 L (22-30) mmol/L BUN 23 H (7-17) mg/dL Creatinine 0.79 (0.52-1.04) mg/dL Glucose 255 H (74-99) mg/dL Calcium 10.1 (8.4-10.2) mg/dL Current Medications Generic Name Dose Route Start Last Admin Trade Name Freq PRN Reason Stop Dose Admin Acetaminophen 650 mg 06/20/18 04:52 06/20/18 04:57 Tylenol Tab PO 650 mg Q6HR PRN Administration Fever and/ or Pain Albuterol/Ipratropium 3 ml 06/19/18 12:17 06/20/18 05:05 Duoneb 0.5 Mg-3 Mg/3 Ml Soln INHALATION 3 ml RT-Q4H PRN Administration Shortness Of Breath Or Wheezing Albuterol/Ipratropium 3 ml 06/19/18 16:00 06/20/18 10:56 Duoneb 0.5 Mg-3 Mg/3 Ml Soln INHALATION 3 ml RT-QID FARAZ Administration Amlodipine Besylate 5 mg 06/19/18 21:00 06/19/18 21:54 Norvasc PO 5 mg HS FARAZ Administration Aspirin 81 mg 06/20/18 09:00 06/20/18 09:24 Aspirin PO 81 mg DAILY FARAZ Administration Atenolol 25 mg 06/20/18 09:00 06/20/18 09:24 Tenormin PO 25 mg DAILY FARAZ Administration Azithromycin 500 mg 06/19/18 12:30 06/20/18 09:21 Zithromax PO 500 mg DAILY FARAZ Administration Famotidine 20 mg 06/19/18 21:00 06/20/18 09:23 Pepcid IV 20 mg Q12HR FARAZ Administration Ferrous Sulfate 325 mg 06/20/18 09:00 06/20/18 09:22 Feosol PO 325 mg DAILY FARAZ Administration Heparin Sodium (Porcine) 5,000 unit 06/19/18 21:00 06/20/18 09:23 Heparin SQ 5,000 unit Q12HR FARAZ Administration Lisinopril 10 mg 06/19/18 21:00 06/19/18 21:53 Zestril PO 10 mg HS FARAZ Administration Methylprednisolone Sodium Succinate 60 mg 06/19/18 18:00 06/20/18 06:44 Solu-Medrol IV 60 mg Q6HR FARAZ Administration Multivitamins 1 each 06/20/18 09:00 06/20/18 09:23 Theragran PO 1 each DAILY FARAZ Administration Multivitamins/Minerals 1 each 06/19/18 21:00 06/20/18 09:23 Ivite PO Not Given BID [facility] Oxybutynin Chloride 10 mg 06/20/18 09:00 06/20/18 09:21 Ditropan Xl PO 10 mg DAILY FARAZ Administration Pantoprazole Sodium 40 mg 06/20/18 07:30 06/20/18 09:22 Protonix PO 40 mg [id number] FARAZ Administration Pravastatin Sodium 40 mg 06/19/18 21:00 06/19/18 21:52 Pravachol PO 40 mg HS FARAZ Administration Intake and Output 06/19/18 06/20/18 06/20/18 22:59 06:59 14:59 Intake Total 1300 200 Balance 1300 200 Intake: Oral 1300 200 Other: # Voids 1 1 06/20/18 09:04 06/20/18 09:04
[2018-06-20] MEDS: LISINOPRIL 20 MG TAB PO SCH (12:38)
[2018-06-20] MEDS: amLODIPine 5 MG TAB PO SCH (21:08)
[2018-06-20] MEDS: PRAVASTATIN SODIUM 40 MG TAB PO SCH (21:08)
[2018-06-20] MEDS: [UNRECOGNIZED DRUG - OTHER] PO SCH (21:10)
--- NOTE | 2018-06-20 22:52 | P.PN ---
Subjective 73 yo F [facility] pmh of asthma/copd, fibromyalgia, GERD, hypertesnion , hyperlipidemia, degenerative joint disease pulmonary embolism, GI bleed bilateral macular degeneration of the eye . She is a patient of Dr. Wetzel . SHE presents because of dyspnea , orthopnea and paroxysmal nocturnal dyspnea . of 5-6 days duration, started over the last weekend to the degree that she wake up on Saturday night 6 times for her breathing treatment. She went to her PCP office Dr. Wetzel last Saturday for appointment and he found her lung is clear and oxygenation saturation is 99%, he did echocardiogram which she didn't get the result of and put her her on Symbicort however she did not improve much in 2 days she was at her office where she's working with an ALLERGY doctor noted that she is short of breath and he she did pulmonary function test for her and told her that was normal and he has some breathing treatment which she stated that make her 100% better. 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 Patient denies chest pain but she has some central chest tightness. No fever. No change in urine or bowel habits. No leg swelling. On admission her CBC and CMP were unremarkable. Saturating 100% on 2 L oxygen via NC. Vicryls looks stable. EKG shows normal sinus rhythm at 81 bpm, no significant ST deviation. Patient has history of PE in 1996, she was at age 37 when she had hysterectomy and they put her on hormonal replacement therapy, and that She developed shortness of right than the throat she had PE but as per patient they could not see it. They treated her with stopping the hormone therapy and baby aspirin and never came back to her again as per patient. Patient never smoked. her dog last january. Patient states she is ALLERGIC to molds and trees In the emergency room she had CTPA of the chest which shows no PE, mild cardiomegaly. In the emergency room she was started on Zithromax and Solu-Medrol this is breathing treatment and oxygen. On the day of discharge patient showed interval improvement and her dyspnea is significantly improved and she couldn't walk in the hallway [id number] with no difficulties. pt has been evaluated by alternative education teacher who cleared her for discharge on short course of steroid and antibiotic Patient also has been evaluated by mica miner. She has 2 sets of negative troponins and echocardiogram which shows: preserved LV function mica miner evaluated pt and recommended to keep pt over the weekend for better BP control. and to keep her NPO on saturday mid-night for possible w/u on saturday. Objective - Vital Signs Vital signs: Vital Signs Temp 98.2 F 06/20/18 14:29 Pulse 80 06/20/18 20:43 Resp 16 06/20/18 19:26 BP 154/87 06/20/18 15:53 Pulse Ox 97 06/20/18 14:29 Intake & Output 06/20/18 06/20/18 06/21/18 06:59 18:59 06:59 Intake Total 100 400 Balance 100 400 Intake: Oral 100 400 Other: # Voids 1 2 - Labs CBC & Chem 7: 06/20/18 09:04 06/20/18 09:04 Labs: Abnormal Lab Results - Last 24 Hours (Table) 06/20/18 06/20/18 Range/Units 09:04 09:04 WBC 12.0 H (3.8-10.6) k/uL Neutrophils # 10.9 H (1.3-7.7) k/uL Lymphocytes # 0.8 L (1.0-4.8) k/uL Carbon Dioxide 19 L (22-30) mmol/L BUN 23 H (7-17) mg/dL Glucose 255 H (74-99) mg/dL Assessment and Plan Assessment: Acute dyspnea, possible asthma exacerbation versus COPD versus others. Rule out cardiac causes. fibromyalgiA GERD, Hypertension Hyperlipidemia Digital joint disease Pulmonary embolism GI bleed Bilateral macular degeneration of the eyes Plan: This is a pleasant 73 years old female who presents because of asthma acute exacerbation vs cardiac cause. Labs and medication were reviewed. Continue with steroids, breathing treatments and oxygen. Continue same treatment. Continue with symptomatic treatment. Resume home medication. Monitor labs and vitals. GI and DVT prophylaxis. Pulmonary and cardiology consult. Echocardiogram. Further recommendation the clinical course with the patient DVT prophylaxis:Subcutaneous heparin GI prophylaxis:Pepcid PT/OT: pending Prognosis is guarded
[2018-06-20] MEDS: MELATONIN 3 MG TABLET PO SCH (23:00)
[2018-06-21] MEDS: methylPREDNISolone SOD SUCCI 125 MG/2 ML VIAL IV SCH ×2 (00:20→06:00)
[2018-06-21 08:07] LABS: Basophils % (A) 0 %; Eosinophils # (A) 0.1 k/uL (0-0.7); Eosinophils % (A) 0 %; HCT 40.8 % (34.0-46.0); HGB 13.3 gm/dL (11.4-16.0); Lymphocytes # (A) 1.1 k/uL (1.0-4.8); Lymphocytes % (A) 5 %; MCH 30.8 pg (25.0-35.0); MCHC 32.5 g/dL (31.0-37.0); MCV 94.9 fL (80.0-100.0); Mean Platelet Volume 8.2; Monocytes # (A) 0.5 k/uL (0-1.0); Monocytes % (A) 2 %; Neutrophils # (A) 20.9 k/uL (1.3-7.7); Neutrophils % (A) 93 %; Platelet Count 229 k/uL (150-450); RDW 13.7 % (11.5-15.5); WBC 22.5 k/uL (3.8-10.6)
[2018-06-21] MEDS: IPRATROPIUM-ALBUTEROL 3 ML NEB INHALATION SCH ×4 (08:11→19:23)
[2018-06-21 08:32] LABS: Calcium 10.4 mg/dL (8.4-10.2); Potassium 4.9 mmol/L (3.5-5.1)
[2018-06-21] MEDS: [UNRECOGNIZED DRUG - OTHER] PO SCH ×2 (09:14→22:41)
[2018-06-21] MEDS: MULTIVITAMINS, THERA 1 EACH TAB PO SCH (09:15)
[2018-06-21] MEDS: AZITHROMYCIN 500 MG TAB PO SCH (09:15)
[2018-06-21] MEDS: ATENOLOL 25 MG TAB PO SCH (09:15)
[2018-06-21] MEDS: ASPIRIN 81 MG PO SCH (09:15)
[2018-06-21] MEDS: FERROUS SULFATE 325 MG TAB PO SCH (09:15)
[2018-06-21] MEDS: LISINOPRIL 20 MG TAB PO SCH (09:15)
[2018-06-21] MEDS: PANTOPRAZOLE 40 MG TABLET PO SCH (09:15)
[2018-06-21] MEDS: HEPARIN SODIUM,PORCINE 5,000 UNIT/ML 1 ML VIAL SQ SCH ×2 (09:15→22:40)
[2018-06-21] MEDS: OXYBUTYNIN 10 MG TAB.ER.24 PO SCH (09:15)
--- NOTE | 2018-06-21 10:44 | P.PN ---
Subjective 73 yo F [facility] pmh of asthma/copd, fibromyalgia, GERD, hypertesnion , hyperlipidemia, degenerative joint disease pulmonary embolism, GI bleed bilateral macular degeneration of the eye . She is a patient of Dr. Wetzel . SHE presents because of dyspnea , orthopnea and paroxysmal nocturnal dyspnea . of 5-6 days duration, started over the last weekend to the degree that she wake up on Saturday night 6 times for her breathing treatment. She went to her PCP office Dr. Wetzel last Saturday for appointment and he found her lung is clear and oxygenation saturation is 99%, he did echocardiogram which she didn't get the result of and put her her on Symbicort however she did not improve much in 2 days she was at her office where she's working with an ALLERGY doctor noted that she is short of breath and he she did pulmonary function test for her and told her that was normal and he has some breathing treatment which she stated that make her 100% better. 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 Patient denies chest pain but she has some central chest tightness. No fever. No change in urine or bowel habits. No leg swelling. On admission her CBC and CMP were unremarkable. Saturating 100% on 2 L oxygen via NC. Vicryls looks stable. EKG shows normal sinus rhythm at 81 bpm, no significant ST deviation. Patient has history of PE in 1996, she was at age 37 when she had hysterectomy and they put her on hormonal replacement therapy, and that She developed shortness of right than the throat she had PE but as per patient they could not see it. They treated her with stopping the hormone therapy and baby aspirin and never came back to her again as per patient. Patient never smoked. her dog last january. Patient states she is ALLERGIC to molds and trees In the emergency room she had CTPA of the chest which shows no PE, mild cardiomegaly. In the emergency room she was started on Zithromax and Solu-Medrol this is breathing treatment and oxygen. On the day of discharge patient showed interval improvement and her dyspnea is significantly improved and she couldn't walk in the hallway [id number] with no difficulties. pt has been evaluated by cooker helper who cleared her for discharge on short course of steroid and antibiotic Patient also has been evaluated by workers compensation claims specialist. She has 2 sets of negative troponins and echocardiogram which shows: preserved LV function workers compensation claims specialist evaluated pt and recommended to keep pt over the weekend for better BP control. and to keep her NPO on saturday mid-night for possible w/u on saturday. 06/21/2018 Patient presented with a presumptive diagnosis of asthma exacerbation. Patient showed interval improvement and significant improvement with therapy including steroids, oxygen and breathing treatment. Patient was going to be discharged according to the pulmonary and medical team recommendation. However Dr. Long evaluated the patient and recommended to monitor her for blood pressure control over the weekend, with possible stress test with or without cardiac cath on Saturday. Which seems not unreasonable given the patient history of normal pulmonary function test by history and significant exertional dyspnea Objective - Vital Signs Vital signs: Vital Signs Temp 98.5 F 06/21/18 07:00 Pulse 81 06/21/18 07:00 Resp 16 06/21/18 07:00 BP 137/62 06/21/18 07:00 Pulse Ox 92 L 06/21/18 07:00 Intake & Output 06/20/18 06/21/18 06/21/18 18:59 06:59 18:59 Intake Total 400 450 Balance 400 450 Intake: Oral 400 450 Other: # Voids 2 1 - Exam GENERAL: The patient is alert and oriented x3, not in any acute distress. Well developed, well nourished. HEENT: Pupils are round and equally reacting to light. EOMI. No scleral icterus. No conjunctival pallor. Normocephalic, atraumatic. No pharyngeal erythema. No thyromegaly. CARDIOVASCULAR: S1 and S2 present. No murmurs, rubs, or gallops. No more wheezing.. Improving PULMONARY: Chest is clear to auscultation, no wheezing or crackles. ABDOMEN: Soft, nontender, nondistended, normoactive bowel sounds. No palpable organomegaly. MUSCULOSKELETAL: No joint swelling or deformity. EXTREMITIES: No cyanosis, clubbing, or pedal edema. NEUROLOGICAL: Gross neurological examination did not reveal any focal deficits. SKIN: No rashes. - Labs CBC & Chem 7: 06/21/18 07:41 06/21/18 07:41 Labs: Abnormal Lab Results - Last 24 Hours (Table) 06/21/18 06/21/18 Range/Units 07:41 07:41 WBC 22.5 H (3.8-10.6) k/uL Neutrophils # 20.9 H (1.3-7.7) k/uL Carbon Dioxide 21 L (22-30) mmol/L BUN 35 H (7-17) mg/dL Glucose 179 H (74-99) mg/dL Calcium 10.4 H (8.4-10.2) mg/dL Assessment and Plan Assessment: Acute dyspnea, possible asthma exacerbation versus COPD versus others. Rule out cardiac causes. fibromyalgiA GERD, Hypertension Hyperlipidemia Digital joint disease Pulmonary embolism GI bleed Bilateral macular degeneration of the eyes Plan: This is a pleasant 73 years old female who presents because of asthma acute exacerbation vs cardiac cause. Labs and medication were reviewed. Continue with steroids, breathing treatments and oxygen. Continue same treatment. Continue with symptomatic treatment. Resume home medication. Monitor labs and vitals. GI and DVT prophylaxis. Pulmonary and cardiology consult. Echocardiogram. Further recommendation the clinical course with the patient DVT prophylaxis:Subcutaneous heparin GI prophylaxis:Pepcid PT/OT: pending Prognosis is guarded
--- NOTE | 2018-06-21 12:38 | P.PN ---
Subjective Progress Note Date: 06/21/18 Principal diagnosis: Asthma exacerbation Progress note dated 06/21/2018 73-year-old female with a history of ALLERGIC asthma and hypertension. From the asthma standpoint, the patient could be discharged. The patient's Solu- Medrol will be switched to prednisone. Apparently she saw the teaching aide who feels that some of her symptoms may relate to cardiac disease. On Saturday, she may end up with a cardiac catheterization or a stress test. In addition to asthma, she has a history of fibromyalgia, GERD, GI bleed, hyperlipidemia, hypertension, osteoarthritis, pneumonia, and pulmonary embolism. Her breathing , is much better. She feels well from the breathing standpoint. She is not short of breath coughing wheezing or having chest tightness. She was not happy to find out that she might have cardiac disease. Objective - Vital Signs Vital signs: Vital Signs Temp 98.5 F 06/21/18 07:00 Pulse 68 06/21/18 11:49 Resp 16 06/21/18 07:00 BP 137/62 06/21/18 07:00 Pulse Ox 92 L 06/21/18 07:00 Intake & Output 06/20/18 06/21/18 06/21/18 18:59 06:59 18:59 Intake Total 400 450 200 Balance 400 450 200 Intake: Oral 400 450 200 Other: # Voids 2 1 - Exam No acute distress, oriented 3. No supplemental oxygen needed. HEENT examination is grossly unremarkable. Mucous membranes are moist. No oral lesions. Neck supple. Full range of motion. No adenopathy thyromegaly or neck vein distention. Cardiovascular examination reveals regular rhythm rate. S1-S2 normal. No S3 or S4. No discernible murmur noted. Lungs reveal mostly clear breath sounds. Very mild expiratory rhonchi/wheezes are appreciated. Breath sounds equal bilaterally. No crackles noted. Abdomen soft bowel sounds are heard. No masses or tenderness. Extremities are intact. No cyanosis clubbing or edema. Skin is without rash or lesion. Neurologic examination is brief but nonfocal. - Labs CBC & Chem 7: 06/21/18 07:41 06/21/18 07:41 Labs: Abnormal Lab Results - Last 24 Hours (Table) 06/21/18 06/21/18 Range/Units 07:41 07:41 WBC 22.5 H (3.8-10.6) k/uL Neutrophils # 20.9 H (1.3-7.7) k/uL Carbon Dioxide 21 L (22-30) mmol/L BUN 35 H (7-17) mg/dL Glucose 179 H (74-99) mg/dL Calcium 10.4 H (8.4-10.2) mg/dL Assessment and Plan Assessment: Assessment Asthma exacerbation in a patient with previously mild intermittent ALLERGIC asthma, currently maintained on a rescue inhaler and ALLERGY shots Rule out intrinsic cardiac disease History of hypertension History of macular degeneration History of hyperlipidemia Stress urinary incontinence DJD History of anemia Plan: Plan dated 06/20/2018 Her lab data is reviewed. CBC is completely normal. PT and INR are normal. Sodium potassium chloride CO2 anion gap BUN and creatinine are all normal. Troponins were negative 2. Chest x-ray is essentially negative. Computed tomography scan of the chest reveals no pulmonary embolism and a hiatal hernia. No markos infiltrates are seen. Current medications include oral Zithromax updrafts with albuterol and Atrovent and Solu-Medrol. The patient is doing well and could be discharged home on prednisone with a burst and taper short course of oral antibiotics and the Symbicort 160/4.5, 2 puffs twice a day. In addition, the patient should continue using her rescue inhaler or her a B12 updraft machine as needed. She should follow-up with her bar steward, Dr. Cruz. No additional recommendations are made. Prognosis is generally good. Plan dated 06/21/2018 The patient is doing well from the asthma standpoint. She could be discharged from the asthma standpoint. Her Solu-Medrol and switched to oral prednisone at 30 mg a day. The patient is apparently being worked up for possible intrinsic cardiac disease/ischemic cardiac disease. The patient may get a cardiac catheterization or a stress test early next week. She was hoping to be able to be discharged home. Her Solu-Medrol is switched to prednisone. We will be happy to see her in follow-up post discharge. In the meantime, we'll see her as needed. Time with Patient: Less than 30
[2018-06-21] MEDS: predniSONE 10 MG TAB PO SCH (12:55)
--- NOTE | 2018-06-21 14:18 | P.PN ---
Subjective Progress Note Date: 06/21/18 Principal diagnosis: Shortness of breath/hypertension This is a pleasant 73-year-old female patient with history of hypertension and dyslipidemia who was admitted to the hospital with shortness of breath. She was seen yesterday by our service and severe underlying coronary artery disease to be ruled out. The blood pressure seems to be better controlled on the current medical regimen. I'll follow-up with her today, she denies having any chest pain or chest discomfort. The shortness of breath has improved. The patient does need to have a stress test to rule out any severe underlying coronary artery disease and that Be done as an inpatient or as an outpatient. Objective - Vital Signs Vital signs: Vital Signs Temp 98.5 F 06/21/18 07:00 Pulse 68 06/21/18 11:49 Resp 16 06/21/18 07:00 BP 137/62 06/21/18 07:00 Pulse Ox 92 L 06/21/18 07:00 Intake & Output 06/20/18 06/21/18 06/21/18 18:59 06:59 18:59 Intake Total 400 450 200 Balance 400 450 200 Intake: Oral 400 450 200 Other: # Voids 2 1 - Constitutional General appearance: Present: no acute distress - Respiratory Respiratory: bilateral: CTA - Cardiovascular Rhythm: regular Heart sounds: normal: S1, S2 - Labs CBC & Chem 7: 06/21/18 07:41 06/21/18 07:41 Labs: Abnormal Lab Results - Last 24 Hours (Table) 06/21/18 06/21/18 Range/Units 07:41 07:41 WBC 22.5 H (3.8-10.6) k/uL Neutrophils # 20.9 H (1.3-7.7) k/uL Carbon Dioxide 21 L (22-30) mmol/L BUN 35 H (7-17) mg/dL Glucose 179 H (74-99) mg/dL Calcium 10.4 H (8.4-10.2) mg/dL Assessment and Plan Assessment: Assessment #1 shortness of breath which has improved #2 uncontrolled hypertension #3 dyslipidemia #4 asthma Plan #1 acute coronary syndrome was ruled out #2 severe underlying CAD to be ruled out #3 the patient need to have a stress test either as an inpatient or as an outpatient.
[2018-06-21 19:11] LABS: Creatine Kinase 408 U/L (30-135)
[2018-06-21 19:21] LABS: Creatine Kinase MB 16.6 ng/mL (0.0-2.4)
[2018-06-21 19:39] LABS: Troponin I <0.012 ng/mL (0.000-0.034)
[2018-06-21] MEDS: PRAVASTATIN SODIUM 40 MG TAB PO SCH (22:39)
[2018-06-21] MEDS: amLODIPine 5 MG TAB PO SCH (22:40)
[2018-06-21] MEDS: MELATONIN 3 MG TABLET PO SCH (22:40)
[2018-06-22 01:36] LABS: Creatine Kinase 304 U/L (30-135)
[2018-06-22 01:49] LABS: Creatine Kinase MB 13.8 ng/mL (0.0-2.4); Troponin I <0.012 ng/mL (0.000-0.034)
[2018-06-22 06:42] LABS: Basophils % (A) 0 %; Eosinophils # (A) 0.2 k/uL (0-0.7); Eosinophils % (A) 1 %; HCT 36.4 % (34.0-46.0); HGB 11.9 gm/dL (11.4-16.0); Lymphocytes # (A) 2.4 k/uL (1.0-4.8); Lymphocytes % (A) 16 %; MCH 30.9 pg (25.0-35.0); MCHC 32.8 g/dL (31.0-37.0); MCV 94.3 fL (80.0-100.0); Mean Platelet Volume 8.4; Monocytes # (A) 0.7 k/uL (0-1.0); Monocytes % (A) 5 %; Neutrophils # (A) 11.1 k/uL (1.3-7.7); Neutrophils % (A) 76 %; Platelet Count 170 k/uL (150-450); RBC 3.86 m/uL (3.80-5.40); RDW 13.9 % (11.5-15.5); WBC 14.6 k/uL (3.8-10.6)
[2018-06-22 06:51] LABS: Calcium 9.5 mg/dL (8.4-10.2); Potassium 4.7 mmol/L (3.5-5.1)
[2018-06-22 07:08] LABS: Creatine Kinase 229 U/L (30-135)
[2018-06-22 07:21] LABS: Creatine Kinase MB 10.8 ng/mL (0.0-2.4); Troponin I <0.012 ng/mL (0.000-0.034)
[2018-06-22] MEDS: IPRATROPIUM-ALBUTEROL 3 ML NEB INHALATION SCH ×4 (07:46→20:21)
[2018-06-22] MEDS: HEPARIN SODIUM,PORCINE 5,000 UNIT/ML 1 ML VIAL SQ SCH ×2 (08:59→20:52)
[2018-06-22] MEDS: MULTIVITAMINS, THERA 1 EACH TAB PO SCH (09:00)
[2018-06-22] MEDS: FERROUS SULFATE 325 MG TAB PO SCH (09:00)
[2018-06-22] MEDS: AZITHROMYCIN 500 MG TAB PO SCH (09:00)
[2018-06-22] MEDS: [UNRECOGNIZED DRUG - OTHER] PO SCH ×2 (09:00→20:53)
[2018-06-22] MEDS: predniSONE 10 MG TAB PO SCH (09:00)
[2018-06-22] MEDS: ATENOLOL 25 MG TAB PO SCH (09:00)
[2018-06-22] MEDS: ASPIRIN 81 MG PO SCH (09:00)
[2018-06-22] MEDS: LISINOPRIL 20 MG TAB PO SCH (09:00)
[2018-06-22] MEDS: PANTOPRAZOLE 40 MG TABLET PO SCH (09:00)
[2018-06-22] MEDS: OXYBUTYNIN 10 MG TAB.ER.24 PO SCH (09:00)
--- NOTE | 2018-06-22 14:22 | P.PN ---
Subjective Progress Note Date: 06/22/18 Principal diagnosis: Shortness of breath/hypertension This is a pleasant 73-year-old female patient with history of hypertension and dyslipidemia who was admitted to the hospital with shortness of breath as well as chest discomfort. She was ruled out for acute coronary event. She did have an episode of chest discomfort last night and the EKG did not show any significant ST or T-wave abnormalities nor the troponin. I'll follow-up with her today, 06/22/2018, she is feeling better. I will keep the patient nothing by mouth after midnight today. She is going to be seen and evaluated by Dr. Santo tomorrow. Objective - Vital Signs Vital signs: Vital Signs Temp 98.2 F 06/22/18 07:00 Pulse 72 06/22/18 11:28 Resp 18 06/22/18 07:00 BP 145/85 06/22/18 07:00 Pulse Ox 98 06/22/18 07:00 Intake & Output 06/21/18 06/22/18 06/22/18 18:59 06:59 18:59 Intake Total 200 1000 240 Balance 200 1000 240 Intake: Oral 200 1000 240 Other: # Voids 1 1 # Bowel Movements 1 - Constitutional General appearance: Present: no acute distress - Respiratory Respiratory: bilateral: CTA - Cardiovascular Rhythm: regular Heart sounds: normal: S1, S2 Abnormal Heart Sounds: Present: systolic murmur - Labs CBC & Chem 7: 06/22/18 06:22 06/22/18 06:22 Labs: Abnormal Lab Results - Last 24 Hours (Table) 06/21/18 06/22/18 06/22/18 Range/Units 18:41 00:12 06:22 WBC 14.6 H (3.8-10.6) k/uL Neutrophils # 11.1 H (1.3-7.7) k/uL Chloride (98-107) mmol/L BUN (7-17) mg/dL Glucose (74-99) mg/dL Total Creatine Kinase 408 H 304 H (30-135) U/L CK-MB (CK-2) 16.6 H 13.8 H (0.0-2.4) ng/mL 06/22/18 06/22/18 Range/Units 06:22 06:22 WBC (3.8-10.6) k/uL Neutrophils # (1.3-7.7) k/uL Chloride 110 H (98-107) mmol/L BUN 37 H (7-17) mg/dL Glucose 102 H (74-99) mg/dL Total Creatine Kinase 229 H (30-135) U/L CK-MB (CK-2) 10.8 H (0.0-2.4) ng/mL Assessment and Plan Assessment: Assessment #1 shortness of breath which has improved #2 uncontrolled hypertension #3 dyslipidemia #4 asthma Plan #1 acute coronary syndrome was ruled out #2 severe underlying CAD to be ruled out #3 we'll continue following up with the patient.
--- NOTE | 2018-06-22 16:02 | P.PN ---
Subjective 06/21/2018 Patient presented with a presumptive diagnosis of asthma exacerbation. Patient showed interval improvement and significant improvement with therapy including steroids, oxygen and breathing treatment. Patient was going to be discharged according to the pulmonary and medical team recommendation. However Dr. Long evaluated the patient and recommended to monitor her for blood pressure control over the weekend, with possible stress test with or without cardiac cath on Saturday. Which seems not unreasonable given the patient history of normal pulmonary function test by history and significant exertional dyspnea 06/22/2018 No overnight events patient is clinically doing well. We will be discharged tomorrow after the stress test Constitutional: Denied any fatigue denied any fever. Cardio vascular: denied any chest pain, palpitations Gastrointestinal denied any nausea vomiting Pulmonary: Denied any shortness of breath cough Neurologic denied any new focal deficits Objective - Vital Signs Vital signs: Vital Signs Temp 98.2 F 06/22/18 07:00 Pulse 72 06/22/18 11:28 Resp 18 06/22/18 07:00 BP 145/85 06/22/18 07:00 Pulse Ox 98 06/22/18 07:00 Intake & Output 06/21/18 06/22/18 06/22/18 18:59 06:59 18:59 Intake Total 200 1000 240 Balance 200 1000 240 Intake: Oral 200 1000 240 Other: # Voids 1 1 # Bowel Movements 1 1 - Exam PHYSICAL EXAMINATION: GENERAL: The patient is alert and oriented x3, not in any acute distress. Well developed, well nourished. HEENT: Pupils are round and equally reacting to light. EOMI. No scleral icterus. No conjunctival pallor. Normocephalic, atraumatic. No pharyngeal erythema. No thyromegaly. CARDIOVASCULAR: S1 and S2 present. No murmurs, rubs, or gallops. PULMONARY: Chest is clear to auscultation, no wheezing or crackles. ABDOMEN: Soft, nontender, nondistended, normoactive bowel sounds. No palpable organomegaly. MUSCULOSKELETAL: No joint swelling or deformity. EXTREMITIES: No cyanosis, clubbing, or pedal edema. NEUROLOGICAL: Gross neurological examination did not reveal any focal deficits. SKIN: No rashes. - Labs CBC & Chem 7: 06/22/18 06:22 06/22/18 06:22 Labs: Abnormal Lab Results - Last 24 Hours (Table) 1006/22/18 06/22/18 Range/Units 18:41 00:12 06:22 WBC 14.6 H (3.8-10.6) k/uL Neutrophils # 11.1 H (1.3-7.7) k/uL Chloride (98-107) mmol/L BUN (7-17) mg/dL Glucose (74-99) mg/dL Total Creatine Kinase 408 H 304 H (30-135) U/L CK-MB (CK-2) 16.6 H 13.8 H (0.0-2.4) ng/mL 06/22/18 06/22/18 Range/Units 06:22 06:22 WBC (3.8-10.6) k/uL Neutrophils # (1.3-7.7) k/uL Chloride 110 H (98-107) mmol/L BUN 37 H (7-17) mg/dL Glucose 102 H (74-99) mg/dL Total Creatine Kinase 229 H (30-135) U/L CK-MB (CK-2) 10.8 H (0.0-2.4) ng/mL Assessment and Plan Plan: -Possible asthma exacerbation improved now ruling out cardiac causes for shortness of breath with a stress test tomorrow patient will be continued on systemic steroids inhalational treatments stress test tomorrow after that patient probably can be discharged. -Thyromegaly -Assess visual reflux disease -Hypertension -Hyperlipidemia
[2018-06-22 16:30] VITALS: RESP 16
[2018-06-22] MEDS: amLODIPine 5 MG TAB PO SCH (20:53)
[2018-06-22] MEDS: PRAVASTATIN SODIUM 40 MG TAB PO SCH (20:54)
[2018-06-22] MEDS: MELATONIN 3 MG TABLET PO SCH (20:54)
[2018-06-23 05:49] VITALS: BP 153/75; TEMP 98.1
[2018-06-23] MEDS: IPRATROPIUM-ALBUTEROL 3 ML NEB INHALATION SCH ×2 (07:36→12:00)
[2018-06-23 08:24] VITALS: PULSE 72
[2018-06-23] MEDS ORDERED: REGADENOSON 0.4 MG/5 ML SYRINGE IV ONE (08:59)
[2018-06-23] MEDS ORDERED: CAFFEINE CITRATE 60 MG/3 ML VIAL IV PRN (08:59)
[2018-06-23 09:09] LABS: HCT 42.5 % (34.0-46.0); HGB 13.8 gm/dL (11.4-16.0); MCH 31.4 pg (25.0-35.0); MCHC 32.6 g/dL (31.0-37.0); MCV 96.5 fL (80.0-100.0); Mean Platelet Volume 8.3; Platelet Count 241 k/uL (150-450); RBC 4.41 m/uL (3.80-5.40); WBC 11.9 k/uL (3.8-10.6)
--- NOTE | 2018-06-23 09:18 | P.PN ---
Subjective Mrs. Miller is seen and examined sitting up in the chair with family visiting. Past medical history significant for asthma, hypertension, dyslipidemia, remote history of pulmonary embolism in 1996 and gastroesophageal reflux disease. She denies history of coronary artery disease and is never seen a camp cook for any reason. Adjustments have been made to her anti- hypertensive regimen and she it tolerating the increases. She did have one instance of chest discomfort Saturday evening that felt like a squeezing sensation in the mid-sternal region with radiation up into her neck and jaw. She has experienced this in the past and was told she has esophageal spasms. Taking mylanta at home typically resolves within minutes. She took Tums here and it lasted approximately 10 minutes before subsiding. EKG obtained at that time was unremarkable with no acute ST or T-wave changes. She currently is chest pain free and denies shortness of breath, dizziness or palpitations. Blood pressure 153/75 heart rate 72 afebrile and maintaining oxygen saturation on room air. Laboratory data reviewed, WBC 11.9, hgb 13.8, plt 241, sodium 138, potassium 4.7, creatinine 0.77 and cardiac enzymes negative x3. Echocardiogram reveals preserved left ventricular systolic function with ejection fraction greater than 55%. Objective - Vital Signs Vital signs: Vital Signs Temp 98.1 F 06/23/18 05:48 Pulse 72 06/23/18 07:50 Resp 16 06/23/18 05:48 BP 153/75 06/23/18 05:48 Pulse Ox 99 06/23/18 07:36 Intake & Output 06/22/18 06/23/18 06/23/18 18:59 06:59 18:59 Intake Total 240 Balance 240 Intake: Oral 240 Other: # Voids 1 1 # Bowel Movements 1 - Exam GENERAL: Well-appearing, well-nourished and in no acute distress. NECK: Supple without JVD or thyromegaly. LUNGS: Breath sounds clear to auscultation bilaterally. Respiration equal and unlabored. No wheezes, rales or rhonchi. HEART: Regular rate and rhythm without murmurs, rubs or gallops. S1 and S2 heard. EXTREMITIES: Normal range of motion, trace bilateral lower extremity nonpitting edema. No clubbing or cyanosis. Peripheral pulses intact. - Labs CBC & Chem 7: 06/22/18 06:22 06/22/18 06:22 Assessment and Plan Assessment: ASSESSMENT Shortness of breath possibly related to asthma or possibly unstable angina. Hypertension, uncontrolled Dyslipidemia Asthma with mild exacerbation Leukocytosis on steroids. PLAN An acute coronary event has been ruled out. Perform Lexiscan stress test to assess for reversible cardiac ischemia. If abnormal will pursue coronary angiography. If stress test is normal she is stable from a cardiac perspective. Continue lisinopril 20 mg daily, aspirin 81 mg daily, atenolol 25 mg daily, pravastatin 40 mg daily and amlodipine 5 mg twice a day. Follow up with Dr. Santo upon discharge. Nurse Practitioner note has been reviewed, I agree with a documented findings and plan of care. Patient was seen and examined.
[2018-06-23] MEDS: FERROUS SULFATE 325 MG TAB PO SCH (09:19)
[2018-06-23] MEDS: AZITHROMYCIN 500 MG TAB PO SCH (09:19)
[2018-06-23] MEDS: PANTOPRAZOLE 40 MG TABLET PO SCH (09:19)
[2018-06-23] MEDS: OXYBUTYNIN 10 MG TAB.ER.24 PO SCH (09:19)
[2018-06-23] MEDS: predniSONE 10 MG TAB PO SCH (09:19)
[2018-06-23] MEDS: amLODIPine 5 MG TAB PO SCH (09:19)
[2018-06-23] MEDS: ASPIRIN 81 MG PO SCH (09:19)
[2018-06-23] MEDS: ATENOLOL 25 MG TAB PO SCH (09:19)
[2018-06-23] MEDS: LISINOPRIL 20 MG TAB PO SCH (09:19)
[2018-06-23] MEDS: MULTIVITAMINS, THERA 1 EACH TAB PO SCH (09:20)
[2018-06-23] MEDS: HEPARIN SODIUM,PORCINE 5,000 UNIT/ML 1 ML VIAL SQ SCH (09:20)
[2018-06-23] MEDS: [UNRECOGNIZED DRUG - OTHER] PO SCH (09:20)
[2018-06-23 09:31] LABS: Anion Gap 8 mmol/L; Blood Urea Nitrogen 29 mg/dL (7-17); Calcium 9.8 mg/dL (8.4-10.2); Carbon Dioxide 25 mmol/L (22-30); Chloride 108 mmol/L (98-107); Glucose 94 mg/dL (74-99); Potassium 4.2 mmol/L (3.5-5.1); Sodium 141 mmol/L (137-145)
[2018-06-23 10:27] LABS: Eosinophils # (M) 0.12 k/uL (0-0.7); Lymphocytes # (M) 5.36 k/uL (1.0-4.8); Monocytes # (M) 0.95 k/uL (0-1.0); Neutrophils # (M) 5.47 k/uL (1.3-7.7); Neutrophils % (M) 46 %; Nucleated Red Blood Cells 0 /100 WBC (0-0); Total Cells Counted 100
--- NOTE | 2018-06-23 13:04 | NM ---
EXAMINATION TYPE: NM stress lexiscan cardiolite DATE OF EXAM: 06/23/2018 COMPARISON: NONE HISTORY: Precordial chest pain. TECHNIQUE: After the intravenous administration of 10.17 mCi Tc 99m Sestamibi - Cardiolite resting S PECT images acquired 50 minutes post injection. The patient received 0.4mg Lexiscan, 25.3 mCi Tc 99m Sestamibi - Stress images obtained [address] injection FINDINGS: Review of stress and rest SPECT images demonstrates no distinct perfusion abnormality. Gated analysi s shows normal wall motion with an estimated left ventricular ejection fraction of 62 %. IMPRESSION: No scintigraphic evidence for reversible ischemia.
--- NOTE | 2018-06-23 20:10 | EST ---
EXERCISE STRESS AGE: 73 SEX: F HT: 5 foot 2 WT: 195 PROTOCOL: Lexiscan HEART RATE REST: 74 BLOOD PRESSURE REST: 146/78 MAXIMUM HEART RATE ACHIEVED: 98 MAXIMUM BLOOD PRESSURE: 148/82 85% MPHR: 123 100% MPHR: 145 INDICATIONS: Asthma, COPD. CLINICAL INFORMATION: Kamilla Miller is a 73-year-old female with chest discomfort. She is brought in for Lexiscan Cardiolite stress test. Baseline heart rate 74 beats per minute. Baseline blood pressure 146/78 mmHg. Baseline 12-lead ECG shows sinus rhythm with normal cardiac intervals. Patient received Lexiscan infusion per protocol. Occasional premature beats are noted. Normal heart rate and blood pressure response was noted. No chest pain was noted. No ECG changes of ischemia noted. Nuclear portion of the stress test will be reported separately. MMODL / IJN: [id number] /
--- NOTE | 2018-06-25 12:42 | CDI ---
Last Revision, August 2017 Documentation Clarification Form Date: 06/25/18 From: Deb Hammonds Phone: If you have a question regarding this query, please contact Sheila Awad at [phone] betweem 8am and 5pm. Admit Date: 06/21/2018 4:33:00 PM Patient Name: Kamilla Miller Visit Number: [id number] Discharge Date: 06/23/18 ATTENTION: The Clinical Documentation Specialists (CDI) and [facility] Coding Staff appreciate your assistance in clarifying documentation. Please respond to the clarification below the line at the bottom and electronically sign. The CDI & [facility] Coding staff will review the response and follow-up if needed. Please note: Queries are made part of the Legal Health Record. If you have any questions, please contact the author of this message via ITS. Aroldo Poe MD Uncontrolled hypertension is documented in the cardiology progress notes on - 06/23. Patient history/risk factors: Patient has admitted for COPD and asthma exacerbation and possible cardiac problems causing shortness of breath. The patient also has a history of hypertension and hyperlipidemia. Clinical Indicators: Elevated blood pressures. Vital Signs: T. 98.0, P. 84, R. 20. Other Clinical Indicators: BP on 06/19: 193/98, 181/78 and 168/79. Treatment: Medication: Norvasc PO 5 mg BID, Tenormin 25 mg PO daily, Zestril 20 mg PO. Blood pressure monitoriing. Please document confirmation of the diagnosis of uncontrolled hypertension and type if not ruled out. Ruled Out Ruled in(please specify type) Emergency Urgency Crisis Other(please specify): Unable to determine MTDD
--- NOTE | 2018-06-30 11:39 | DS ---
DISCHARGE SUMMARY DATE OF ADMISSION: 06/21/2018 DATE OF DISCHARGE: 06/23/2018 FINAL DIAGNOSES: 1. Acute asthma exacerbation. 2. Essential hypertension. 3. Hyperlipidemia. 4. Urinary stress incontinence. 5. Primary osteoarthritis. HOSPITAL COURSE: This patient presented with shortness of breath felt to be asthma exacerbation. Because of some of her symptoms, patient did undergo a nuclear stress test that was negative for ischemia. Patient is doing better by the time of discharge. PHYSICAL EXAMINATION: Temp 98.1, pulse 72, respirations 16, blood pressure 123/75, pulse ox 93% on room air LUNGS: Improved air entry. CARDIOVASCULAR: First and second sounds normal. LABS: Investigations white count 11.9, hemoglobin 13.8 potassium 4.2, creatinine 0.73. Troponins were negative. Nuclear stress test was negative. A 2D echocardiogram showed EF of 35%. PE was ruled out. CONSULTATIONS: 1. Dr. Rdz from Pulmonary. 2. Dr. Jaylen Santo from Cardiology. DISCHARGE MEDICATIONS: 1. Aspirin 81 mg a day. 2. Tenormin 25 mg a day. 3. Iron 325 mg a day woman's Daily multivitamin 1 tablet p.o. daily. 4. Prilosec 20 mg b.i.d. 5. Pravachol 40 mg q.h.s. 6. Mobic 50 mg p.o. daily. 7. Detrol LA 4 mg p.o. daily. 8. I caps soft gel 1 capsule p.o. b.i.d. 9. Ventolin HFA 1 or 2 puffs q.6 p.r.n. 10.Lotrel 5/10 one capsule p.o. b.i.d. 11.Ventolin 2.5 q.4 p.r.n. 12.Symbicort 160/4.5 one puff b.i.d. 13.DuoNeb q.i.d. 14.Prednisone taper. FOLLOWUP: Follow up with Dr. Santo on 07/09/2018, Dr. Wetzel on 06/25/2018. MMODL / IJN: [id number] /
== END 2018-06-23 14:52 | disposition home or self-care (01) | DRG 202 ==
LOC: EC 08:58 → 4MS4W 12:33 → OBSVTOIN 06-21 16:33
PROVIDERS: ADMIT Hospitalist; ATTEND Hospitalist
DX: J45.21 Mild intermittent asthma with (acute) exacerbation (principal); J44.1 Chronic obstructive pulmonary disease with (acute) exacerbation; I20.0 Unstable angina; D64.9 Anemia, unspecified; E78.5 Hyperlipidemia, unspecified; H35.30 Unspecified macular degeneration; K21.9 Gastro-esophageal reflux disease without esophagitis; K58.9 Irritable bowel syndrome, unspecified; M79.7 Fibromyalgia; N39.3 Stress incontinence (female) (male); M15.9 Polyosteoarthritis, unspecified; K64.9 Unspecified hemorrhoids; K57.90 Diverticulosis of intestine, part unspecified, without perforation or abscess without bleeding; E01.0 Iodine-deficiency related diffuse (endemic) goiter; D72.829 Elevated white blood cell count, unspecified; Z79.1 Long term (current) use of non-steroidal anti-inflammatories (NSAID); Z79.82 Long term (current) use of aspirin; Z79.899 Other long term (current) drug therapy; Z96.653 Presence of artificial knee joint, bilateral; Z90.710 Acquired absence of both cervix and uterus; Z86.711 Personal history of pulmonary embolism; Z86.010 Personal history of colon polyps; I10 Essential (primary) hypertension; Z98.42 Cataract extraction status, left eye; Z98.41 Cataract extraction status, right eye; Z96.1 Presence of intraocular lens; Z98.1 Arthrodesis status; Z87.01 Personal history of pneumonia (recurrent); Z88.1 Allergy status to other antibiotic agents; Z88.5 Allergy status to narcotic agent; Z91.048 Other nonmedicinal substance allergy status; Z82.49 Family history of ischemic heart disease and other diseases of the circulatory system; Z80.9 Family history of malignant neoplasm, unspecified; Z82.0 Family history of epilepsy and other diseases of the nervous system
CPT/HCPCS: 36415; 71046; 71275; 78452; 80048; 80053; 82550; 82553; 83735; 83880; 84484; 85025; 85610; 85730; 93005; 93017; 93306; 94640; 94760; 96374; 99285

== ENCOUNTER 2018-06-26 13:49 | Emergency (ER) | payer MEDICARE, BC ==
--- NOTE | 2018-06-26 13:56 | ED ---
SOB HPI - General Stated Complaint: SOB Time Seen by Provider: 06/26/18 13:55 Source: RN notes reviewed, old records reviewed - History of Present Illness Initial Comments: This is a 73-year-old female the ER for evaluation patient sent for a for expectoration regarding shortness of breath. Patient has history of shortness of breath Diagnosis of COPD with recent hospital admission. Patient states he doesn't feel significant shortness with at anytime which is feels that she can't catch her breath, she believes it may be related to medication she's taking at home. Denies chest pain no fevers no cough no congestion, no productive cough. MD Complaint: shortness of breath, cough -: days(s) (2) Severity: moderate Severity scale (1-10): 3 Improves With: bronchodilators Worsens With: lying flat, exertion, movement, coughing Known History Of: COPD Context: recent URI Associated Symptoms: cough Treatments Prior to Arrival: none - Related Data Home Medications Medication Instructions Recorded Confirmed Aspirin 81 mg PO DAILY 03/09/15 06/26/18 Atenolol [Tenormin] 25 mg PO DAILY 03/09/15 06/26/18 Ferrous Sulfate [Feosol] 325 mg PO DAILY 03/09/15 06/26/18 Multivit with Calcium,Iron,Min 1 tab PO DAILY 03/09/15 06/26/18 [Women's Daily Multivitamin] Omeprazole [PriLOSEC] 20 mg PO AC-BID 03/09/15 06/26/18 Pravastatin Sodium [Pravachol] 40 mg PO HS 03/09/15 06/26/18 Meloxicam [Mobic] 15 mg PO DAILY 10/25/17 06/26/18 Tolterodine Tartrate [Detrol LA] 4 mg PO DAILY 10/25/17 06/26/18 Vit A/Vit C/Vit E/Zinc/Copper 1 cap PO BID 06/19/18 06/26/18 [ICAPS SOFTGEL] Budesonide-Formot 160-4.5 Mcg 1 puff INHALATION RT-BID 06/26/18 06/26/18 [Symbicort 160-4.5 Mcg Inhaler] Ipratropium-Albuterol Nebulize 3 ml INHALATION RT-QID 06/26/18 06/26/18 [Duoneb 0.5 mg-3 mg/3 ml Soln] predniSONE See Taper PO DAILY 06/26/18 06/26/18 Previous Rx's Medication Instructions Recorded Albuterol Inhaler [Ventolin Hfa 1 - 2 puff INHALATION RT-Q6H PRN 06/23/18 Inhaler] #1 inhaler amLODIPine BESYLATE/BENAZEPRIL 1 cap PO BID #60 capsule 06/23/18 [Lotrel 5-10 mg Capsule] Albuterol Nebulized [Ventolin 2.5 mg INHALATION Q4H PRN #25 nebu 06/26/18 Nebulized] Allergies Allergy/AdvReac Type Severity Reaction Status Date / Time cephalexin monohydrate Allergy membranous Verified 06/26/18 14:37 [From Keflex] colitis adhesive AdvReac skin Verified 06/26/18 14:37 blisters metronidazole [From Flagyl] AdvReac Nausea & Verified 06/26/18 14:37 Vomiting morphine AdvReac Hallucinations, Verified 06/26/18 14:37 N/V oxycodone HCl [From Percocet] AdvReac Hallucinations, Verified 06/26/18 14:37 N/V Review of Systems ROS Statement: Those systems with pertinent positive or pertinent negative responses have been documented in the HPI. ROS Other: All systems not noted in ROS Statement are negative. Past Medical History Past Medical History: Asthma, COPD, Eye Disorder, Fibromyalgia, GERD/Reflux, GI Bleed, Hyperlipidemia, Hypertension, Osteoarthritis (OA), Pneumonia, Pulmonary Embolus (PE) Additional Past Medical History / Comment(s): Possible TIA, pulmonary embolism 1996/was on HRT, bilateral macular degeneration-R eye wet/L eye dry, bilateral eyes reinoschlesis, difficulty with night vision, arthritis multiple joints, anemia, colon polyps-benign, lower GI bleed x 2 thought d/t hemorrhoids, IBS, diverticulosis, kidney stones, UTIs, past hemorrhagic cystitis, cystocele/ pessary, past L sided rib fractures. History of Any Multi-Drug Resistant Organisms: None Reported Past Surgical History: Adenoidectomy, Bladder Surgery, Hysterectomy, Joint Replacement, Orthopedic Surgery, Tonsillectomy Additional Past Surgical History / Comment(s): Colonoscopies/benign polypectomy , bladder suspension, D&C, bilateral total knee replacements, cervical fusion with titanium plate, bilateral cataract removals/lens implants, R eye injections every 6 weeks, L retinol hole/patched. Past Anesthesia/Blood Transfusion Reactions: Postoperative Nausea & Vomiting ( PONV) Additional Past Anesthesia/Blood Transfusion Reaction / Comment(s): difficult IV start Smoking Status: Never smoker - Past Family History Daughter(s) Family Medical History: Cancer Additional Family Medical History / Comment(s): breast Father Family Medical History: Pulmonary Embolus Additional Family Medical History / Comment(s): Father of a PE at the age of 82 yrs. Mother Family Medical History: Dementia, Eye Disorder, Hypertension Additional Family Medical History / Comment(s): Mother had severe arthritis, macular degeneration and glaucoma. She at the age of 92 yrs. General Exam General appearance: alert, in no apparent distress Head exam: Present: atraumatic, normocephalic, normal inspection Eye exam: Present: normal appearance, PERRL, EOMI. Absent: scleral icterus, conjunctival injection, periorbital swelling ENT exam: Present: normal exam, mucous membranes moist Neck exam: Present: normal inspection. Absent: tenderness, meningismus, lymphadenopathy Respiratory exam: Present: normal lung sounds bilaterally. Absent: respiratory distress, wheezes, rales, rhonchi, stridor Cardiovascular Exam: Present: regular rate, normal rhythm, normal heart sounds. Absent: systolic murmur, diastolic murmur, rubs, gallop, clicks GI/Abdominal exam: Present: soft, normal bowel sounds. Absent: distended, tenderness, guarding, rebound, rigid Extremities exam: Present: normal inspection, full ROM, normal capillary refill. Absent: tenderness, pedal edema, joint swelling, calf tenderness Back exam: Present: normal inspection Neurological exam: Present: alert, oriented X3, CN II-XII intact Psychiatric exam: Present: normal affect, normal mood Skin exam: Present: warm, dry, intact, normal color. Absent: rash Course Vital Signs 06/26/18 06/26/18 06/26/18 13:59 15:12 16:30 Temperature 98.3 F 98.6 F Pulse Rate 71 90 85 Respiratory 18 18 19 Rate Blood Pressure 136/124 132/63 O2 Sat by Pulse 94 L 96 Oximetry - Reevaluation(s) Reevaluation #1: 06/26/18 16:33 Medical record and prior hospitalization or reviewed Reevaluation #2: 06/26/18 16:33 Patient states she feels completely normal after breathing treatment, with her to be discharged home Medical Decision Making - Medical Decision Making 73 female the ER with COPD exacerbation. Patient can be discharged home - Lab Data Result diagrams: 06/26/18 15:15 06/26/18 15:15 Lab Results 06/26/18 06/26/18 06/26/18 Range/Units 15:15 15:15 15:15 WBC 11.8 H (3.8-10.6) k/uL RBC 4.24 (3.80-5.40) m/uL Hgb 12.9 (11.4-16.0) gm/dL Hct 40.2 (34.0-46.0) % MCV 95.0 (80.0-100.0) fL MCH 30.5 (25.0-35.0) pg MCHC 32.1 (31.0-37.0) g/dL RDW 13.7 (11.5-15.5) % Plt Count 250 (150-450) k/uL Neutrophils % 87 % Lymphocytes % 9 % Monocytes % 3 % Eosinophils % 0 % Basophils % 0 % Neutrophils # 10.3 H (1.3-7.7) k/uL Lymphocytes # 1.1 (1.0-4.8) k/uL Monocytes # 0.3 (0-1.0) k/uL Eosinophils # 0.0 (0-0.7) k/uL Basophils # 0.0 (0-0.2) k/uL Sodium 142 (137-145) mmol/L Potassium 4.8 (3.5-5.1) mmol/L Chloride 109 H (98-107) mmol/L Carbon Dioxide 23 (22-30) mmol/L Anion Gap 10 mmol/L BUN 21 H (7-17) mg/dL Creatinine 0.70 (0.52-1.04) mg/dL Est GFR (CKD-EPI)AfAm >90 (>60 ml/min/1.73 sqM) Est GFR (CKD-EPI)NonAf 85 (>60 ml/min/1.73 sqM) Glucose 197 H (74-99) mg/dL Calcium 9.8 (8.4-10.2) mg/dL Magnesium 2.1 (1.6-2.3) mg/dL Total Bilirubin 0.3 (0.2-1.3) mg/dL AST 43 H (14-36) U/L ALT 68 H (9-52) U/L Alkaline Phosphatase 115 (38-126) U/L Total Creatine Kinase 35 (30-135) U/L CK-MB (CK-2) 1.2 (0.0-2.4) ng/mL CK-MB (CK-2) Rel Index 3.4 Troponin I <0.012 (0.000-0.034) ng/mL NT-Pro-B Natriuret Pep pg/mL Total Protein 7.1 (6.3-8.2) g/dL Albumin 4.4 (3.5-5.0) g/dL 06/26/18 Range/Units 15:15 WBC (3.8-10.6) k/uL RBC (3.80-5.40) m/uL Hgb (11.4-16.0) gm/dL Hct (34.0-46.0) % MCV (80.0-100.0) fL MCH (25.0-35.0) pg MCHC (31.0-37.0) g/dL RDW (11.5-15.5) % Plt Count (150-450) k/uL Neutrophils % % Lymphocytes % % Monocytes % % Eosinophils % % Basophils % % Neutrophils # (1.3-7.7) k/uL Lymphocytes # (1.0-4.8) k/uL Monocytes # (0-1.0) k/uL Eosinophils # (0-0.7) k/uL Basophils # (0-0.2) k/uL Sodium (137-145) mmol/L Potassium (3.5-5.1) mmol/L Chloride (98-107) mmol/L Carbon Dioxide (22-30) mmol/L Anion Gap mmol/L BUN (7-17) mg/dL Creatinine (0.52-1.04) mg/dL Est GFR (CKD-EPI)AfAm (>60 ml/min/1.73 sqM) Est GFR (CKD-EPI)NonAf (>60 ml/min/1.73 sqM) Glucose (74-99) mg/dL Calcium (8.4-10.2) mg/dL Magnesium (1.6-2.3) mg/dL Total Bilirubin (0.2-1.3) mg/dL AST (14-36) U/L ALT (9-52) U/L Alkaline Phosphatase (38-126) U/L Total Creatine Kinase (30-135) U/L CK-MB (CK-2) (0.0-2.4) ng/mL CK-MB (CK-2) Rel Index Troponin I (0.000-0.034) ng/mL NT-Pro-B Natriuret Pep 594 pg/mL Total Protein (6.3-8.2) g/dL Albumin (3.5-5.0) g/dL - EKG Data -: EKG Interpreted by Me (EKG shows sinus rhythm rate of 88, CO 1:30, QRS 82, QTc 452) EKG shows normal: sinus rhythm Rate: normal - Radiology Data Radiology results: report reviewed (Chest x-rays negative for acute disease), image reviewed Disposition Clinical Impression: Acute exacerbation of chronic obstructive airways disease Disposition: HOME SELF-CARE Condition: Good Instructions: Acute Bronchitis (ED) Prescriptions: Albuterol Nebulized [Ventolin Nebulized] 2.5 mg INHALATION Q4H PRN #25 nebu PRN Reason: Shortness Of Breath Is patient prescribed a controlled substance at d/c from ED?: No Referrals: Gelacio Wetzel MD [Primary Care Provider] - 1-2 days
[2018-06-26] MEDS ORDERED: ALBUTEROL NEBULIZED 2.5 MG/3 ML INHALATION STA (14:38)
[2018-06-26] MEDS ORDERED: IPRATROPIUM 0.5 MG/2.5 ML NEBU INHALATION STA (14:38)
[2018-06-26 15:46] LABS: Basophils % (A) 0 %; Eosinophils % (A) 0 %; HCT 40.2 % (34.0-46.0); HGB 12.9 gm/dL (11.4-16.0); Lymphocytes # (A) 1.1 k/uL (1.0-4.8); Lymphocytes % (A) 9 %; MCH 30.5 pg (25.0-35.0); MCHC 32.1 g/dL (31.0-37.0); Mean Platelet Volume 7.9; Monocytes # (A) 0.3 k/uL (0-1.0); Monocytes % (A) 3 %; Neutrophils # (A) 10.3 k/uL (1.3-7.7); Neutrophils % (A) 87 %; Platelet Count 250 k/uL (150-450); RBC 4.24 m/uL (3.80-5.40); RDW 13.7 % (11.5-15.5); WBC 11.8 k/uL (3.8-10.6)
--- NOTE | 2018-06-26 15:52 | XR ---
EXAMINATION TYPE: XR chest 2V DATE OF EXAM: 06/26/2018 COMPARISON: 06/19/2018 HISTORY: Increasing shortness of breath. TECHNIQUE: Frontal and lateral views of the chest are obtained. FINDINGS: There is no focal air space opacity, pleural effusion, or pneumothorax seen. There is tor tuosity of the thoracic aorta. The cardiac silhouette size is within normal limits. The osseous str uctures are intact. There is a moderate hiatal hernia in the retrocardiac airspace. Mild multilevel d egenerative changes of the thoracic spine are seen. Chronic interstitial prominence is unchanged from the prior. And anterior cervical fusion device is seen. Mild dextroscoliosis is seen of the thoracic spine. IMPRESSION: Chronic changes with no acute cardiopulmonary process.
[2018-06-26 16:04] LABS: Creatine Kinase 35 U/L (30-135)
[2018-06-26 16:11] LABS: ALT 68 U/L (9-52); AST 43 U/L (14-36); Albumin 4.4 g/dL (3.5-5.0); Alkaline Phosphatase 115 U/L (38-126); Anion Gap 10 mmol/L; Blood Urea Nitrogen 21 mg/dL (7-17); Calcium 9.8 mg/dL (8.4-10.2); Carbon Dioxide 23 mmol/L (22-30); Chloride 109 mmol/L (98-107); Glucose 197 mg/dL (74-99); Magnesium 2.1 mg/dL (1.6-2.3); Potassium 4.8 mmol/L (3.5-5.1); Sodium 142 mmol/L (137-145); Total Bilirubin 0.3 mg/dL (0.2-1.3); Total Protein 7.1 g/dL (6.3-8.2)
[2018-06-26 16:16] LABS: Creatine Kinase MB 1.2 ng/mL (0.0-2.4); Troponin I <0.012 ng/mL (0.000-0.034)
[2018-06-26 16:30] VITALS: BP 132/63; PULSE 85; RESP 19; TEMP 98.6
== END 2018-06-26 16:30 | disposition home or self-care (01) ==
LOC: EC 13:49
DX: J44.1 Chronic obstructive pulmonary disease with (acute) exacerbation (principal); D64.9 Anemia, unspecified; K21.9 Gastro-esophageal reflux disease without esophagitis; E78.5 Hyperlipidemia, unspecified; I10 Essential (primary) hypertension; M19.90 Unspecified osteoarthritis, unspecified site; Z88.1 Allergy status to other antibiotic agents; Z88.5 Allergy status to narcotic agent; Z91.048 Other nonmedicinal substance allergy status; Z79.1 Long term (current) use of non-steroidal anti-inflammatories (NSAID); Z79.51 Long term (current) use of inhaled steroids; Z79.52 Long term (current) use of systemic steroids; Z79.82 Long term (current) use of aspirin; Z79.899 Other long term (current) drug therapy; Z96.653 Presence of artificial knee joint, bilateral; Z98.1 Arthrodesis status
CPT/HCPCS: 36415; 71046; 80053; 82550; 82553; 83735; 83880; 84484; 85025; 93005; 94640; 99285

== ENCOUNTER 2018-06-30 10:27 | Emergency (ER) | payer MEDICARE, BC ==
[2018-06-30] MEDS ORDERED: methylPREDNISolone SOD SUCCI 125 MG/2 ML VIAL IV STA (11:13)
[2018-06-30] MEDS ORDERED: IPRATROPIUM 0.5 MG/2.5 ML NEBU INHALATION STA (11:13)
[2018-06-30] MEDS ORDERED: ALBUTEROL NEBULIZED 2.5 MG/3 ML INHALATION STA (11:13)
--- NOTE | 2018-06-30 11:17 | ED ---
General Adult HPI - General Chief complaint: Shortness of Breath Stated complaint: SOB Time Seen by Provider: 06/30/18 11:03 Source: patient, RN notes reviewed, old records reviewed Mode of arrival: wheelchair - History of Present Illness Initial comments: 73-year-old female history of asthma presenting with worsening dyspnea. Patient has had dyspnea over the past 2 weeks. She was seen at this institution and admitted with asthma exacerbation. She was sent home, follow- up with primary care physician, started on albuterol. he presented to emergency department for evaluation of dyspnea approximately 4 days ago. Ipratropium was added at that time. She has been on a steroid taper and is currently on 10 mg of prednisone. Denies central chest pain. Denies cough. Denies fever or chills. No history of heart failure. No history of CAD. No history of DVT or PE. - Related Data Home Medications Medication Instructions Recorded Confirmed Aspirin 81 mg PO HS 03/09/15 06/30/18 Atenolol [Tenormin] 25 mg PO DAILY 03/09/15 06/30/18 Ferrous Sulfate [Feosol] 325 mg PO DAILY 03/09/15 06/30/18 Multivit with Calcium,Iron,Min 1 tab PO DAILY 03/09/15 06/30/18 [Women's Daily Multivitamin] Omeprazole [PriLOSEC] 20 mg PO AC-BID 03/09/15 06/30/18 Pravastatin Sodium [Pravachol] 40 mg PO HS 03/09/15 06/30/18 Meloxicam [Mobic] 15 mg PO DAILY 10/25/17 06/30/18 Tolterodine Tartrate [Detrol LA] 4 mg PO DAILY 10/25/17 06/30/18 Vit A/Vit C/Vit E/Zinc/Copper 1 cap PO BID 06/19/18 06/30/18 [ICAPS SOFTGEL] Budesonide-Formot 160-4.5 Mcg 1 puff INHALATION RT-BID 06/26/18 06/30/18 [Symbicort 160-4.5 Mcg Inhaler] Ipratropium-Albuterol Nebulize 3 ml INHALATION RT-QID 06/26/18 06/30/18 [Duoneb 0.5 mg-3 mg/3 ml Soln] Previous Rx's Medication Instructions Recorded Albuterol Inhaler [Ventolin Hfa 1 - 2 puff INHALATION RT-Q6H PRN 06/23/18 Inhaler] #1 inhaler amLODIPine BESYLATE/BENAZEPRIL 1 cap PO BID #60 capsule 06/23/18 [Lotrel 5-10 mg Capsule] Albuterol Nebulized [Ventolin 2.5 mg INHALATION Q4H PRN #25 nebu 06/26/18 Nebulized] Albuterol Nebulized [Ventolin 2.5 mg INHALATION Q4H #60 nebu 06/30/18 Nebulized] predniSONE 50 mg PO DAILY #5 tab 06/30/18 Allergies Allergy/AdvReac Type Severity Reaction Status Date / Time cephalexin monohydrate Allergy membranous Verified 06/30/18 11:31 [From Keflex] colitis adhesive AdvReac skin Verified 06/30/18 11:31 blisters metronidazole [From Flagyl] AdvReac Nausea & Verified 06/30/18 11:31 Vomiting morphine AdvReac Hallucinations, Verified 06/30/18 11:31 N/V oxycodone HCl [From Percocet] AdvReac Hallucinations, Verified 06/30/18 11:31 N/V Review of Systems ROS Statement: Those systems with pertinent positive or pertinent negative responses have been documented in the HPI. ROS Other: All systems not noted in ROS Statement are negative. Past Medical History Past Medical History: Asthma, COPD, Eye Disorder, Fibromyalgia, GERD/Reflux, GI Bleed, Hyperlipidemia, Hypertension, Osteoarthritis (OA), Pneumonia, Pulmonary Embolus (PE) Additional Past Medical History / Comment(s): Possible TIA, pulmonary embolism 1996/was on HRT, bilateral macular degeneration-R eye wet/L eye dry, bilateral eyes reinoschlesis, difficulty with night vision, arthritis multiple joints, anemia, colon polyps-benign, lower GI bleed x 2 thought d/t hemorrhoids, IBS, diverticulosis, kidney stones, UTIs, past hemorrhagic cystitis, cystocele/ pessary, past L sided rib fractures. History of Any Multi-Drug Resistant Organisms: None Reported Past Surgical History: Adenoidectomy, Bladder Surgery, Hysterectomy, Joint Replacement, Orthopedic Surgery, Tonsillectomy Additional Past Surgical History / Comment(s): Colonoscopies/benign polypectomy , bladder suspension, D&C, bilateral total knee replacements, cervical fusion with titanium plate, bilateral cataract removals/lens implants, R eye injections every 6 weeks, L retinol hole/patched. Past Anesthesia/Blood Transfusion Reactions: Postoperative Nausea & Vomiting ( PONV) Additional Past Anesthesia/Blood Transfusion Reaction / Comment(s): difficult IV start Past Psychological History: No Psychological Hx Reported Smoking Status: Never smoker - Past Family History Daughter(s) Family Medical History: Cancer Additional Family Medical History / Comment(s): breast Father Family Medical History: Pulmonary Embolus Additional Family Medical History / Comment(s): Father of a PE at the age of 82 yrs. Mother Family Medical History: Dementia, Eye Disorder, Hypertension Additional Family Medical History / Comment(s): Mother had severe arthritis, macular degeneration and glaucoma. She at the age of 92 yrs. General Exam General appearance: alert, in no apparent distress Head exam: Present: atraumatic, normocephalic Eye exam: Present: normal appearance, PERRL ENT exam: Present: normal exam Neck exam: Present: normal inspection. Absent: tenderness, meningismus Respiratory exam: Present: normal lung sounds bilaterally, other (Good air entry bilaterally). Absent: respiratory distress, wheezes, rales, rhonchi Cardiovascular Exam: Present: regular rate, normal rhythm GI/Abdominal exam: Present: soft. Absent: distended, tenderness, guarding Extremities exam: Present: normal inspection, normal capillary refill. Absent: pedal edema, calf tenderness Neurological exam: Present: alert, oriented X3, CN II-XII intact. Absent: motor sensory deficit Psychiatric exam: Present: normal affect, normal mood Skin exam: Present: warm, dry, intact. Absent: cyanosis, diaphoretic Course Vital Signs 06/30/18 06/30/18 06/30/18 10:38 11:35 12:16 Temperature 99.2 F 98.2 F Pulse Rate 90 76 83 Respiratory 22 22 Rate Blood Pressure 163/74 126/79 O2 Sat by Pulse 100 99 Oximetry EKG Findings - EKG Comments: EKG Findings:: EKG: Normal sinus rhythm, LVH, rate of 74, MO interval 146, QRS duration 74, QTC 441, no ST segment elevation Medical Decision Making - Medical Decision Making 73-year-old female presenting with dyspnea. Patient has stable vital signs, normal pulse ox on room air. She does receive an evaluation emergency department which reveals chest x-ray negative for acute cardiopulmonary disease , no pneumonia, mildly elevated white blood cell count although patient is currently on steroids. Hemoglobin 13.2 which is stable. Normal CMP, negative troponin, negative BNP. Nonischemic EKG. Previous workup is reviewed including previous CT angiography which is negative for PE. Patient given albuterol, Atrovent, and steroids in the emergency department. This does momentarily improve her symptoms. A mandatory pulse ox is 99% on room air. She is offered observation for continued treatment of asthma exacerbation. She declines. She will use albuterol, Atrovent at home with her nebulizer. She will continue steroids. She will make an appointment to follow up with pulmonology. She will return with worsening or changing symptoms. - Lab Data Result diagrams: 06/30/18 11:27 06/30/18 11:27 Lab Results 06/30/18 06/30/18 06/30/18 Range/Units 11:27 11:27 11:27 WBC 13.1 H (3.8-10.6) k/uL RBC 4.32 (3.80-5.40) m/uL Hgb 13.2 (11.4-16.0) gm/dL Hct 41.0 (34.0-46.0) % MCV 94.9 (80.0-100.0) fL MCH 30.5 (25.0-35.0) pg MCHC 32.1 (31.0-37.0) g/dL RDW 14.1 (11.5-15.5) % Plt Count 268 (150-450) k/uL Neutrophils % 60 % Lymphocytes % 31 % Monocytes % 5 % Eosinophils % 2 % Basophils % 0 % Neutrophils # 7.9 H (1.3-7.7) k/uL Lymphocytes # 4.0 (1.0-4.8) k/uL Monocytes # 0.7 (0-1.0) k/uL Eosinophils # 0.3 (0-0.7) k/uL Basophils # 0.1 (0-0.2) k/uL PT (9.0-12.0) sec INR (<1.2) APTT (22.0-30.0) sec Sodium 141 (137-145) mmol/L Potassium 4.7 (3.5-5.1) mmol/L Chloride 107 (98-107) mmol/L Carbon Dioxide 23 (22-30) mmol/L Anion Gap 11 mmol/L BUN 19 H (7-17) mg/dL Creatinine 0.77 (0.52-1.04) mg/dL Est GFR (CKD-EPI)AfAm 87 (>60 ml/min/1.73 sqM) Est GFR (CKD-EPI)NonAf 76 (>60 ml/min/1.73 sqM) Glucose 103 H (74-99) mg/dL Calcium 10.0 (8.4-10.2) mg/dL Magnesium 2.1 (1.6-2.3) mg/dL Total Bilirubin 0.7 (0.2-1.3) mg/dL AST 39 H (14-36) U/L ALT 55 H (9-52) U/L Alkaline Phosphatase 90 (38-126) U/L Total Creatine Kinase 55 (30-135) U/L CK-MB (CK-2) 1.7 (0.0-2.4) ng/mL CK-MB (CK-2) Rel Index 3.1 Troponin I <0.012 (0.000-0.034) ng/mL NT-Pro-B Natriuret Pep pg/mL Total Protein 7.6 (6.3-8.2) g/dL Albumin 4.6 (3.5-5.0) g/dL 06/30/18 06/30/18 Range/Units 11:27 11:27 WBC (3.8-10.6) k/uL RBC (3.80-5.40) m/uL Hgb (11.4-16.0) gm/dL Hct (34.0-46.0) % MCV (80.0-100.0) fL MCH (25.0-35.0) pg MCHC (31.0-37.0) g/dL RDW (11.5-15.5) % Plt Count (150-450) k/uL Neutrophils % % Lymphocytes % % Monocytes % % Eosinophils % % Basophils % % Neutrophils # (1.3-7.7) k/uL Lymphocytes # (1.0-4.8) k/uL Monocytes # (0-1.0) k/uL Eosinophils # (0-0.7) k/uL Basophils # (0-0.2) k/uL PT 9.6 (9.0-12.0) sec INR 1.0 (<1.2) APTT 20.0 L (22.0-30.0) sec Sodium (137-145) mmol/L Potassium (3.5-5.1) mmol/L Chloride (98-107) mmol/L Carbon Dioxide (22-30) mmol/L Anion Gap mmol/L BUN (7-17) mg/dL Creatinine (0.52-1.04) mg/dL Est GFR (CKD-EPI)AfAm (>60 ml/min/1.73 sqM) Est GFR (CKD-EPI)NonAf (>60 ml/min/1.73 sqM) Glucose (74-99) mg/dL Calcium (8.4-10.2) mg/dL Magnesium (1.6-2.3) mg/dL Total Bilirubin (0.2-1.3) mg/dL AST (14-36) U/L ALT (9-52) U/L Alkaline Phosphatase (38-126) U/L Total Creatine Kinase (30-135) U/L CK-MB (CK-2) (0.0-2.4) ng/mL CK-MB (CK-2) Rel Index Troponin I (0.000-0.034) ng/mL NT-Pro-B Natriuret Pep 297 pg/mL Total Protein (6.3-8.2) g/dL Albumin (3.5-5.0) g/dL Disposition Clinical Impression: Acute exacerbation of chronic obstructive airways disease Disposition: HOME SELF-CARE Condition: Good Instructions: Asthma (ED) Prescriptions: Albuterol Nebulized [Ventolin Nebulized] 2.5 mg INHALATION Q4H #60 nebu predniSONE 50 mg PO DAILY #5 tab Is patient prescribed a controlled substance at d/c from ED?: No Referrals: Gelacio Wetzel MD [Primary Care Provider] - 1-2 days Chandler Rdz DO [Doctor of Osteopathic Medicine] - 1-2 days Time of Disposition: 13:05
[2018-06-30 11:43] LABS: Basophils # (A) 0.1 k/uL (0-0.2); Basophils % (A) 0 %; Eosinophils # (A) 0.3 k/uL (0-0.7); Eosinophils % (A) 2 %; HGB 13.2 gm/dL (11.4-16.0); Lymphocytes % (A) 31 %; MCH 30.5 pg (25.0-35.0); MCHC 32.1 g/dL (31.0-37.0); MCV 94.9 fL (80.0-100.0); Mean Platelet Volume 7.8; Monocytes # (A) 0.7 k/uL (0-1.0); Monocytes % (A) 5 %; Neutrophils # (A) 7.9 k/uL (1.3-7.7); Neutrophils % (A) 60 %; Platelet Count 268 k/uL (150-450); RBC 4.32 m/uL (3.80-5.40); RDW 14.1 % (11.5-15.5); WBC 13.1 k/uL (3.8-10.6)
[2018-06-30 11:54] LABS: Albumin 4.6 g/dL (3.5-5.0); Magnesium 2.1 mg/dL (1.6-2.3); Total Bilirubin 0.7 mg/dL (0.2-1.3); Total Protein 7.6 g/dL (6.3-8.2)
[2018-06-30 11:56] LABS: Potassium 4.7 mmol/L (3.5-5.1)
[2018-06-30 12:07] LABS: Creatine Kinase 55 U/L (30-135)
[2018-06-30 12:09] LABS: Prothrombin Time 9.6 sec (9.0-12.0)
[2018-06-30 12:18] VITALS: TEMP 98.2
[2018-06-30 12:20] LABS: Creatine Kinase MB 1.7 ng/mL (0.0-2.4); Troponin I <0.012 ng/mL (0.000-0.034)
--- NOTE | 2018-06-30 12:39 | XR ---
EXAMINATION TYPE: XR chest 2V DATE OF EXAM: 06/30/2018 COMPARISON: 06/26/2018 HISTORY: Shortness of breath TECHNIQUE: Frontal and lateral views of the chest are obtained. FINDINGS: Scattered senescent parenchymal changes noted. Hyperinflation compatible with COPD. No evidence for infiltrate. No evidence for atelectasis. Heart size is stable. Mediastinal structures are stable and grossly unremarkable. Small fixed hiatal hernia noted. No evidence for hilar prominence. Degenerative changes dorsal spine. IMPRESSION: 1. No evidence for acute pulmonary disease.
[2018-06-30 13:45] VITALS: BP 132/77; PULSE 74; RESP 20
== END 2018-06-30 13:30 | disposition home or self-care (01) ==
LOC: EC 10:27
DX: J44.1 Chronic obstructive pulmonary disease with (acute) exacerbation (principal); D72.829 Elevated white blood cell count, unspecified; M79.7 Fibromyalgia; K21.9 Gastro-esophageal reflux disease without esophagitis; E78.5 Hyperlipidemia, unspecified; I10 Essential (primary) hypertension; M19.90 Unspecified osteoarthritis, unspecified site; D64.9 Anemia, unspecified; Z86.711 Personal history of pulmonary embolism; Z96.653 Presence of artificial knee joint, bilateral; Z82.49 Family history of ischemic heart disease and other diseases of the circulatory system; Z79.82 Long term (current) use of aspirin; Z79.1 Long term (current) use of non-steroidal anti-inflammatories (NSAID); Z79.51 Long term (current) use of inhaled steroids; Z79.899 Other long term (current) drug therapy; Z88.1 Allergy status to other antibiotic agents; Z88.5 Allergy status to narcotic agent; Z91.048 Other nonmedicinal substance allergy status; Z53.29 Procedure and treatment not carried out because of patient's decision for other reasons
CPT/HCPCS: 36415; 94640; 93005; 83880; 80053; 82550; 82553; 83735; 84484; 85025; 85610; 85730; 71046; 99285; 96374; J2930

== ENCOUNTER → 2018-08-13 | Day surgery (SDC) | payer MEDICARE, BC ==
[2018-08-07 12:04] VITALS: BMI 35.8
[~2018-08-13] MED LIST changes: +ALPRAZolam 0.25 MG TAB PO PRN; +ASPIRIN 325 MG TAB PO ONE; +HEPARIN SODIUM 1,000 UN/ML (10ML VL) IV ONE; +IOPAMIDOL-370 125ML BTL INJ ONE; -LACTATED RINGERS 1,000 ML IV SCH; -LIDOCAINE 1% INJ 10MG/ML (20 ML MDV) ONE; +LIDOCAINE 1% INJ 10MG/ML (20 ML MDV) SQ ONE; +MIDAZOLAM 2 MG/2 ML VIAL IVP ONE; -PROPOFOL 10 MG/ML 20 ML VIAL IV ONE; +RX INFO: IV CONTRAST WAS GIVEN 1 EACH MISC MISCELLANE PRN; +SODIUM CHLORIDE 0.9% 1,000 ML IV SCH; +SODIUM CHLORIDE 0.9% 1,000 ML in EMPTY BAG 1 BAG IV ONE; +VERAPAMIL SYRINGE (5 MG/10 ML) INTRAARTER ONE; +fentaNYL (PF) 50 MCG/ML 2 ML AMP IVP ONE
[2018-08-13 07:30] VITALS: TEMP 99.7
--- NOTE | 2018-08-13 09:11 | LTR ---
DATE OF SERVICE: 08/13/2018 RE: Angela Kamilla Dear Dr. Wetzel; Ms. Kamilla Miller underwent today a heart catheterization and that showed normal coronary angiogram. I want to thank you for allowing me to participate in her care and please do not hesitate to call if you have any question or concern. Sincerely, MD JOCELYN Swartz / HANS: [id number] /
--- NOTE | 2018-08-13 09:11 | CC ---
CARDIAC CATHETERIZATION REPORT DATE OF SERVICE: 08/13/2018 PERFORMING PHYSICIAN: Aroldo Nowak MD, Area Plant Manager. PROCEDURE PERFORMED: 1. Selective right and left coronary angiogram. 2. Left heart catheterization. INDICATION: This is a pleasant 73-year-old female patient with hypertension and dyslipidemia who continues to have exertional dyspnea. Dyspnea was concerning for angina equivalent. Because of that, a heart catheterization was advised. APPROACH: Right radial artery. COMPLICATION: None. LEVEL OF SEDATION: Moderate with sedation length of 18 minutes. PROCEDURE DESCRIPTION: After obtaining an informed consent, the patient was brought to the cardiac labeling machine operator. The right radial artery was cannulated using micropuncture technique. The micropuncture wire passed easily, then I placed a 6-Chadian sheath in the right radial artery. After that, I gave the patient 2 mg of verapamil IA and 8000 units of heparin IV. Selective right and left coronary angiogram were performed using JR4 and JL3.5 catheters. Left heart catheterization was performed using 6-Chadian pigtail catheter. The procedure was completed without any complication. SELECTIVE CORONARY ANGIOGRAM: 1. The right coronary artery is a large caliber vessel and is a dominant vessel. The RCA is angiographically normal. It distally bifurcates into PDA and PLV branches, both are angiographically normal. The left main is angiographically normal. It bifurcates into left circumflex, ramus intermedius, and left anterior descending artery. The left circumflex is a large caliber vessel. It is a nondominant vessel. It is angiographically normal. 2. The ramus intermedius is a large caliber vessel and also angiographically normal. 3. The LAD, the proximal LAD is normal. It gives rise into a large diagonal branch which appeared to be angiographically normal. The mid LAD and distal LAD are angiographically normal. The LAD in the midportion is tortuous. HEMODYNAMICS: The left ventricular end-diastolic pressure was 12 mmHg and no gradient was identified across the aortic valve. CONCLUSION: 1. Normal coronary angiogram. 2. Normal left ventricular end-diastolic pressure. POSTPROCEDURE MANAGEMENT: Medical treatment and follow up with the patient. MMJYOTSNAL / RICON: [id number] /
[2018-08-13 14:53] VITALS: BP 121/59; PULSE 66; RESP 18
== END ==
LOC: CATHCVL 06:50
PROVIDERS: ATTEND Internal Medicine Interventional Cardiology
DX: R06.02 Shortness of breath (principal); I10 Essential (primary) hypertension; E78.5 Hyperlipidemia, unspecified; E78.1 Pure hyperglyceridemia; E78.00 Pure hypercholesterolemia, unspecified; I20.0 Unstable angina; J45.909 Unspecified asthma, uncomplicated; Z79.1 Long term (current) use of non-steroidal anti-inflammatories (NSAID); Z79.82 Long term (current) use of aspirin; Z79.51 Long term (current) use of inhaled steroids; Z79.52 Long term (current) use of systemic steroids; Z79.899 Other long term (current) drug therapy; Z88.1 Allergy status to other antibiotic agents
CPT/HCPCS: 93458; C1769; C1894; J2250; J2001; J3010; J1644; Q9967

== ENCOUNTER → 2018-09-16 | Outpatient (CLI) | payer MEDICARE, BC ==
--- NOTE | 2018-09-16 10:34 | CT ---
EXAMINATION TYPE: CT chest wo con DATE OF EXAM: 09/16/2018 COMPARISON: 06/19/2018 HISTORY: Interstitial findings on CXR. Pt c/o SOB CT DLP: 805.20 mGycm. Automated Exposure Control for Dose Reduction was Utilized. TECHNIQUE: CT scan of the thorax is performed without IV contrast. High-resolution technique was uti lized limiting evaluation for pulmonary nodules given noncontiguous slices. FINDINGS: LUNGS: There is minimal subpleural nodular reticulation. No bronchiectasis, interseptal lobular thick ening, nor emphysematous change is seen. The lungs are grossly clear, there is no concerning parenchy mal mass or nodule identified. There is no pleural effusion or pneumothorax seen. The tracheobronc hial tree is patent. MEDIASTINUM: Lack of IV contrast is noted to limit evaluation for mediastinal and especially hilar ad enopathy. There are no definitive greater than 1 cm hilar or mediastinal lymph nodes. No cardiomega ly or pericardial effusion is seen. OTHER: There is partial visualization of an anterior cervical fusion device. There is a large hiatal hernia/partial intrathoracic stomach. Mild cardiomegaly remains. Scoliotic curvature of the lumbar sp ine and mild multilevel degenerative changes are noted. Benign dystrophic calcifications are again se en within the breast tissue. IMPRESSION: 1. Very mild subpleural nodular reticulation that can be seen in aging independent of smoking history , atelectasis or less likely very early fibrosis. No evidence of UIP or NSIP. 2. Redemonstration of a partial intrathoracic stomach and mild cardiomegaly.
== END | disposition home or self-care (01) ==
LOC: RADCTMAIN 09:16
PROVIDERS: ATTEND Allergy & Immunology
DX: I51.7 Cardiomegaly (principal); R91.1 Solitary pulmonary nodule; J45.40 Moderate persistent asthma, uncomplicated
CPT/HCPCS: 71250; 94060; 94726; 94729

== ENCOUNTER → 2018-11-25 | Outpatient (CLI) | payer MEDICARE, BC ==
--- NOTE | 2018-11-25 10:43 | MM ---
Reason for exam: screening (asymptomatic). Last mammogram was performed 1 year and 1 month ago. History: Patient is postmenopausal. Family history of breast cancer in daughter at age 40. Took hormonal contraceptives beginning at age 21. Took estrogen beginning at age 37. Taking other hormone. Physical Findings: A clinical breast exam by your physician is recommended on an annual basis and results should be correlated with mammographic findings. MG 3D Screening Mammo W/Cad Bilateral CC and MLO view(s) were taken. Prior study comparison: October 22, 2017, bilateral MG 3d screening mammo w/cad. September 20, 2016, bilateral MG 3d screening mammo w/cad. The breast tissue is extremely dense which could obscure a lesion on mammography. Benign appearing bilateral calcifications. No suspicious abnormality. No significant changes when compared with prior studies. ASSESSMENT: Benign, BI-RAD 2 RECOMMENDATION: Routine screening mammogram of both breasts in 1 year.
--- NOTE | 2018-11-25 13:06 | BD ---
EXAMINATION TYPE: Axial Bone Density DATE OF EXAM: 11/25/2018 COMPARISON: 09.14.2014 CLINICAL HISTORY: 73 YR OLD FEMALE....ICD-10 CODE: Z13.820 OSTEOPOROSIS SCREENING Height: 60.3 Weight: 196 FRAX RISK QUESTIONS: Family History (Parent hip fracture): YES Glucocorticoids (More than 3mos): YES (Ex: prednisone, prednisolone, methylprednisolone, dexamethasone, and hydrocortisone). History of Fracture in Adulthood: YES Secondary Osteoporosis: YES 3. Menopause before 45: YES, AT 37 YRS OLD RISK FACTORS HISTORY OF: HX OF RIB FXs LT SIDE....>50 YRS OLD History of Wrist Fracture: RT ARM CHILD, X2 Family History of Osteoporosis: YES, HER MOTHER, WITH HIP FX Diet low in dairy products/other sources of calcium: NO MILK Postmenopausal woman: TOTAL HYST AT 37 YRS OLD Take estrogen and/or progesterone medications: HRT FOR 15 YRS, NONE NOW Lost more than 2 inches in height since high school: YES MEDICATIONS: Prednisone or other steroids: SYMBICORT DAILY, ASTHMA, ALLERGIES, VENTOLIN PRN, PREDNISONE, LAST YR How Long: COUPLE YRS Additional Medications: BP MEDS, REFLEX MEDS, STATIN FOR CHOLESTEROL, MULTIVITAMIN, VISIONARY, FOR MA CULAR DEGENERATION, MELOXICAM FOR ARTHRITIS Additional History: MACULAR DEG., CHOLESTEROL, HEART CONCERNS, HIATAL HERNIA, OSTEOARTHRITIS, EXAM MEASUREMENTS: Bone mineral densitometry was performed using the [employer] System. Bone mineral density as measured about the Lumbar spine is: ----- L1-L4(G/cm2): 1.300 T Score Values are as follows: ----- L1: 0.2 ----- L2: 1.0 ----- L3: 1.4 ----- L4: 1.2 ----- L1-L4: 1.0 Bone mineral density has: Decreased -6.9ince study of: 09.14.2014 Bone mineral density about the R hip (g/cm2): 0.963 Bone mineral density about the L hip (g/cm2): 1.000 T Score values are as follows: -----R Neck: -0.5 -----L Neck: -0.6 -----R Total: -0.4 -----L Total: -0.1 Bone mineral density has: Decreased -5.0ince study of: 09.14.2014 FRAX%s: THERE IS A 26.9% CHANCE FOR A MAJOR OSTEOPOROTIC FX AND A 9.9% FOR HIP.....PROBABILITY OF F X IN 10 YRS TIME IMPRESSION: Normal (Values between +1 and -1 indicate normal bone mass). Consider repeating this study in 5 year s or sooner if there is some new clinical indication. NOTE: T-SCORE=SD OF THE YOUNG ADULT MEAN.
== END | disposition home or self-care (01) ==
LOC: RADMAMWWP 09:22
PROVIDERS: ATTEND Obstetrics & Gynecology
DX: Z12.31 Encounter for screening mammogram for malignant neoplasm of breast (principal); Z13.820 Encounter for screening for osteoporosis; Z80.3 Family history of malignant neoplasm of breast
CPT/HCPCS: 77063; 77067; 77080

== ENCOUNTER → 2019-09-10 | Outpatient (CLI) | payer MEDICARE, BC ==
--- NOTE | 2019-09-10 12:26 | US ---
EXAMINATION TYPE: US kidneys/renal and bladder DATE OF EXAM: 09/10/2019 COMPARISON: NONE CLINICAL HISTORY: Microhematuria R31.1. Hematuria EXAM MEASUREMENTS: Right Kidney: 10.6 x 3.8 x 3.4 cm Left Kidney: 10.6 x 4.7 x 4.0 cm Right Kidney: No hydronephrosis or masses seen Left Kidney: No hydronephrosis or masses seen Bladder: wnl Bilateral Jets seen: Yes There is no evidence for hydronephrosis at this point in time. No nephrolithiasis is seen. No aj s are identified. The urinary bladder is anechoic. Bilateral ureteral jets are seen. IMPRESSION: No hydronephrosis or nephrolithiasis. Unremarkable renal ultrasound.
== END | disposition home or self-care (01) ==
LOC: RADUSWWP 10:47
PROVIDERS: ATTEND Urology
DX: R31.1 Benign essential microscopic hematuria (principal); Z88.8 Allergy status to other drugs, medicaments and biological substances; Z88.5 Allergy status to narcotic agent
CPT/HCPCS: 76770

== ENCOUNTER → 2020-03-03 | Outpatient (CLI) | payer MEDICARE, BC ==
--- NOTE | 2020-03-04 10:03 | MM ---
Reason for exam: screening (asymptomatic). Last mammogram was performed 1 year and 3 months ago. History: Patient is postmenopausal. Family history of breast cancer in daughter at age 40. Took hormonal contraceptives beginning at age 21. Took estrogen beginning at age 37. Taking other hormone. Physical Findings: A clinical breast exam by your physician is recommended on an annual basis and results should be correlated with mammographic findings. MG 3D Screening Mammo W/Cad Bilateral CC and MLO view(s) were taken. Prior study comparison: November 25, 2018, bilateral MG 3d screening mammo w/cad. October 22, 2017, bilateral MG 3d screening mammo w/cad. The breast tissue is heterogeneously dense. This may lower the sensitivity of mammography. No significant changes when compared with prior studies. ASSESSMENT: Benign, BI-RAD 2 RECOMMENDATION: Routine screening mammogram of both breasts in 1 year.
== END | disposition home or self-care (01) ==
LOC: RADMAMWWP 12:52
PROVIDERS: ATTEND Obstetrics & Gynecology
DX: Z12.31 Encounter for screening mammogram for malignant neoplasm of breast (principal)
CPT/HCPCS: 77063; 77067

== ENCOUNTER 2020-03-09 14:00 | Emergency (ER) | payer MEDICARE, BC ==
--- NOTE | 2020-03-09 15:29 | ED ---
SOB HPI - General Chief Complaint: Shortness of Breath Stated Complaint: Low BP Time Seen by Provider: 03/09/20 15:05 Source: patient Mode of arrival: ambulatory Limitations: no limitations - History of Present Illness Initial Comments: Patient is 74-year-old female with history of asthma presenting to emergency Department with chief complaint of low blood pressure. Patient states she was at the [facility] office to get an ALLERGY shot when they obtained her vitals and she was running into 105 systolic which is typically low for her. Patient states she typically is round 130 to 150 systolic. Patient reports she was advised to go to emergency department for further evaluation. Patient reports the last few months she's developed some increased weakness. She does report bilateral lower extremity edema at baseline. She also reports intermittent shortness of breath that has been ongoing over the past few months. Denies any chest pain. States she had a previous cardiac cath with no significant findings. Patient denies one-sided weakness or paresthesias. Denies light headedness, dizziness, visual changes. No history of DVT or PE. Not currently undergoing chemo treatment. No recent hospitalizations. - Related Data Home Medications Medication Instructions Recorded Confirmed Aspirin 81 mg PO HS 03/09/15 08/13/18 Atenolol [Tenormin] 25 mg PO DAILY 03/09/15 08/13/18 Ferrous Sulfate [Feosol] 325 mg PO DAILY 03/09/15 08/13/18 Multivit with Calcium,Iron,Min 1 tab PO DAILY 03/09/15 08/13/18 [Women's Daily Multivitamin] Omeprazole [PriLOSEC] 20 mg PO AC-BID 03/09/15 08/13/18 Pravastatin Sodium [Pravachol] 40 mg PO HS 03/09/15 08/13/18 Meloxicam [Mobic] 15 mg PO DAILY 10/25/17 08/13/18 Tolterodine Tartrate [Detrol LA] 4 mg PO HS 10/25/17 08/13/18 Vit A/Vit C/Vit E/Zinc/Copper 1 cap PO BID 06/19/18 08/13/18 [ICAPS SOFTGEL] Budesonide-Formot 160-4.5 Mcg 2 puff INHALATION RT-BID 06/26/18 08/13/18 [Symbicort 160-4.5 Mcg Inhaler] Ipratropium-Albuterol Nebulize 3 ml INHALATION RT-QID PRN 06/26/18 08/07/18 [Duoneb 0.5 mg-3 mg/3 ml Soln] Melatonin 3 mg PO HS PRN 08/07/18 08/13/18 Ranitidine HCl [Zantac] 300 mg PO HS 08/07/18 08/13/18 Previous Rx's Medication Instructions Recorded Albuterol Inhaler (Mhu) [Ventolin 1 - 2 puff INHALATION RT-Q6H PRN 06/23/18 Hfa Inhaler (Mhu)] #1 inhaler amLODIPine BESYLATE/BENAZEPRIL 1 cap PO BID #60 capsule 06/23/18 [Lotrel 5-10 MG] Allergies Allergy/AdvReac Type Severity Reaction Status Date / Time cephalexin monohydrate Allergy membranous Verified 03/09/20 14:42 [From Keflex] colitis adhesive AdvReac skin Verified 03/09/20 14:42 blisters metronidazole [From Flagyl] AdvReac Nausea & Verified 03/09/20 14:42 Vomiting morphine AdvReac Hallucinations, Verified 03/09/20 14:42 N/V oxycodone HCl [From Percocet] AdvReac Hallucinations, Verified 03/09/20 14:42 N/V Review of Systems ROS Statement: Those systems with pertinent positive or pertinent negative responses have been documented in the HPI. ROS Other: All systems not noted in ROS Statement are negative. Past Medical History Past Medical History: Asthma, COPD, Eye Disorder, Fibromyalgia, GERD/Reflux, GI Bleed, Hyperlipidemia, Hypertension, Osteoarthritis (OA), Pneumonia, Pulmonary Embolus (PE) Additional Past Medical History / Comment(s): Possible TIA, pulmonary embolism 1996/was on HRT, bilateral macular degeneration-R eye wet/L eye dry, bilateral eyes retinoschesis, difficulty with night vision, arthritis multiple joints, anemia, colon polyps-benign, lower GI bleed x 2 thought d/t hemorrhoids, IBS, diverticulosis, kidney stones, UTIs, past hemorrhagic cystitis, cystocele/pessary, past L sided rib fractures, recent admission in June for SOB possibly related to exacerbation of asthma History of Any Multi-Drug Resistant Organisms: None Reported Past Surgical History: Adenoidectomy, Bladder Surgery, Hysterectomy, Joint Replacement, Orthopedic Surgery, Tonsillectomy Additional Past Surgical History / Comment(s): Colonoscopies/benign polypectomy, bladder suspension, D&C, bilateral total knee replacements, cervical fusion with titanium plate, bilateral cataract removals/lens implants, R eye injections every 6 weeks, L retinal hole/patched. Past Anesthesia/Blood Transfusion Reactions: Postoperative Nausea & Vomiting (PONV) Additional Past Anesthesia/Blood Transfusion Reaction / Comment(s): difficult IV start Past Psychological History: No Psychological Hx Reported Smoking Status: Never smoker - Past Family History Daughter(s) Family Medical History: Cancer Additional Family Medical History / Comment(s): breast Father Family Medical History: Pulmonary Embolus Additional Family Medical History / Comment(s): Father of a PE at the age of 82 yrs. Mother Family Medical History: Dementia, Eye Disorder, Hypertension Additional Family Medical History / Comment(s): Mother had severe arthritis, macular degeneration and glaucoma. She at the age of 92 yrs. General Exam Limitations: no limitations General appearance: alert, in no apparent distress, in distress Head exam: Present: atraumatic, normocephalic, normal inspection Eye exam: Present: normal appearance, PERRL, EOMI Pupils: Present: normal accommodation ENT exam: Present: normal exam, normal oropharynx, mucous membranes moist Neck exam: Present: normal inspection, full ROM. Absent: tenderness Respiratory exam: Present: normal lung sounds bilaterally. Absent: respiratory distress, wheezes, rales, rhonchi, stridor, chest wall tenderness Cardiovascular Exam: Present: regular rate, normal rhythm, normal heart sounds GI/Abdominal exam: Present: soft. Absent: distended, tenderness, guarding Extremities exam: Present: normal inspection, full ROM, normal capillary refill, other (+2 ulnar and radial pulses bilaterally.) Back exam: Present: normal inspection, full ROM Neurological exam: Present: alert, oriented X3 Psychiatric exam: Present: normal affect, normal mood Skin exam: Present: warm, dry, intact, normal color Course Vital Signs 03/09/20 03/09/20 03/09/20 14:36 15:11 15:42 Temperature 98.4 F Pulse Rate 70 67 Respiratory 18 18 18 Rate Blood Pressure 150/68 143/80 O2 Sat by Pulse 98 99 Oximetry 03/09/20 03/09/20 18:10 19:00 Temperature 98.0 F Pulse Rate 69 70 Respiratory 16 18 Rate Blood Pressure 146/78 142/78 O2 Sat by Pulse 98 99 Oximetry Medical Decision Making - Medical Decision Making Patient is 74-year-old female who is here as an presenting to the emergency department with a chief complaint of low blood pressure. Patient does have bilateral lower extremity edema at baseline for the last several months. No current chest pain or shortness of breath. EKG shows sinus rhythm with no ST or T-wave changes. Wells score of zero. Patient is to follow-up with her primary care physician and a magnetic resonance technologist in the next few days. Initial troponin is negative. Return parameters were thoroughly discussed with patient is worsening and agreeable. Case discussed with physician. - Lab Data Result diagrams: 03/09/20 16:00 03/09/20 16:00 Lab Results 03/09/20 03/09/20 03/09/20 Range/Units 16:00 16:00 16:00 WBC 7.2 (3.8-10.6) k/uL RBC 4.13 (3.80-5.40) m/uL Hgb 13.1 (11.4-16.0) gm/dL Hct 39.6 (34.0-46.0) % MCV 95.8 (80.0-100.0) fL MCH 31.8 (25.0-35.0) pg MCHC 33.2 (31.0-37.0) g/dL RDW 13.3 (11.5-15.5) % Plt Count 212 (150-450) k/uL Neutrophils % 67 % Lymphocytes % 22 % Monocytes % 6 % Eosinophils % 3 % Basophils % 1 % Neutrophils # 4.8 (1.3-7.7) k/uL Lymphocytes # 1.6 (1.0-4.8) k/uL Monocytes # 0.4 (0-1.0) k/uL Eosinophils # 0.2 (0-0.7) k/uL Basophils # 0.1 (0-0.2) k/uL Sodium 137 (137-145) mmol/L Potassium 4.8 (3.5-5.1) mmol/L Chloride 104 (98-107) mmol/L Carbon Dioxide 24 (22-30) mmol/L Anion Gap 9 mmol/L BUN 20 H (7-17) mg/dL Creatinine 0.80 (0.52-1.04) mg/dL Est GFR (CKD-EPI)AfAm 83 (>60 ml/min/1.73 sqM) Est GFR (CKD-EPI)NonAf 72 (>60 ml/min/1.73 sqM) Glucose 103 H (74-99) mg/dL Calcium 10.0 (8.4-10.2) mg/dL Magnesium 2.3 (1.6-2.3) mg/dL Total Bilirubin 0.5 (0.2-1.3) mg/dL AST 41 H (14-36) U/L ALT 29 (4-34) U/L Alkaline Phosphatase 86 (38-126) U/L Total Creatine Kinase 96 (30-135) U/L CK-MB (CK-2) 1.6 (0.0-2.4) ng/mL CK-MB (CK-2) Rel Index 1.7 Troponin I <0.012 (0.000-0.034) ng/mL NT-Pro-B Natriuret Pep pg/mL Total Protein 7.3 (6.3-8.2) g/dL Albumin 4.8 (3.5-5.0) g/dL 03/09/20 Range/Units 16:00 WBC (3.8-10.6) k/uL RBC (3.80-5.40) m/uL Hgb (11.4-16.0) gm/dL Hct (34.0-46.0) % MCV (80.0-100.0) fL MCH (25.0-35.0) pg MCHC (31.0-37.0) g/dL RDW (11.5-15.5) % Plt Count (150-450) k/uL Neutrophils % % Lymphocytes % % Monocytes % % Eosinophils % % Basophils % % Neutrophils # (1.3-7.7) k/uL Lymphocytes # (1.0-4.8) k/uL Monocytes # (0-1.0) k/uL Eosinophils # (0-0.7) k/uL Basophils # (0-0.2) k/uL Sodium (137-145) mmol/L Potassium (3.5-5.1) mmol/L Chloride (98-107) mmol/L Carbon Dioxide (22-30) mmol/L Anion Gap mmol/L BUN (7-17) mg/dL Creatinine (0.52-1.04) mg/dL Est GFR (CKD-EPI)AfAm (>60 ml/min/1.73 sqM) Est GFR (CKD-EPI)NonAf (>60 ml/min/1.73 sqM) Glucose (74-99) mg/dL Calcium (8.4-10.2) mg/dL Magnesium (1.6-2.3) mg/dL Total Bilirubin (0.2-1.3) mg/dL AST (14-36) U/L ALT (4-34) U/L Alkaline Phosphatase (38-126) U/L Total Creatine Kinase (30-135) U/L CK-MB (CK-2) (0.0-2.4) ng/mL CK-MB (CK-2) Rel Index Troponin I (0.000-0.034) ng/mL NT-Pro-B Natriuret Pep 306 pg/mL Total Protein (6.3-8.2) g/dL Albumin (3.5-5.0) g/dL - EKG Data EKG Comments: Sinus rhythm. Ventricular rate 67, CO 160, QRS 80, QTC 433. Disposition Clinical Impression: Hypotensive episode Disposition: HOME SELF-CARE Condition: Stable Instructions (If sedation given, give patient instructions): Hypotension (ED) Additional Instructions: Follow-up with your primary care or magnetic resonance technologist. Return to emergency department if symptoms worsen. Is patient prescribed a controlled substance at d/c from ED?: No Referrals: Gelacio Wetzel MD [Primary Care Provider] - 1-2 days Time of Disposition: 18:09
[2020-03-09 16:24] LABS: Basophils # (A) 0.1 k/uL (0-0.2); Basophils % (A) 1 %; Eosinophils # (A) 0.2 k/uL (0-0.7); Eosinophils % (A) 3 %; HCT 39.6 % (34.0-46.0); HGB 13.1 gm/dL (11.4-16.0); Lymphocytes # (A) 1.6 k/uL (1.0-4.8); Lymphocytes % (A) 22 %; MCH 31.8 pg (25.0-35.0); MCHC 33.2 g/dL (31.0-37.0); MCV 95.8 fL (80.0-100.0); Mean Platelet Volume 8.6; Monocytes # (A) 0.4 k/uL (0-1.0); Monocytes % (A) 6 %; Neutrophils # (A) 4.8 k/uL (1.3-7.7); Neutrophils % (A) 67 %; Platelet Count 212 k/uL (150-450); RBC 4.13 m/uL (3.80-5.40); RDW 13.3 % (11.5-15.5); WBC 7.2 k/uL (3.8-10.6)
[2020-03-09 16:31] LABS: Creatine Kinase 96 U/L (30-135)
[2020-03-09 16:32] LABS: Albumin 4.8 g/dL (3.5-5.0); Magnesium 2.3 mg/dL (1.6-2.3); Potassium 4.8 mmol/L (3.5-5.1); Total Bilirubin 0.5 mg/dL (0.2-1.3); Total Protein 7.3 g/dL (6.3-8.2)
--- NOTE | 2020-03-09 16:35 | XR ---
EXAMINATION TYPE: XR chest 2V DATE OF EXAM: 03/09/2020 COMPARISON: 06/30/2018 INDICATION: Short of breath hypotension TECHNIQUE: Frontal and lateral views of the chest are obtained. FINDINGS: The heart size is normal. The pulmonary vasculature is normal. The lungs are clear. Scoliosis is present. Anterior cervical fusion is noted. Small hiatal hernia is present IMPRESSION: 1. No acute pulmonary process.
[2020-03-09 16:43] LABS: Creatine Kinase MB 1.6 ng/mL (0.0-2.4); Troponin I <0.012 ng/mL (0.000-0.034)
[2020-03-11 09:31] VITALS: BP 142/78; PULSE 70; RESP 18; TEMP 98
== END 2020-03-09 19:03 | disposition home or self-care (01) ==
LOC: EC 14:00
DX: I95.9 Hypotension, unspecified (principal); J44.9 Chronic obstructive pulmonary disease, unspecified; I10 Essential (primary) hypertension; E78.5 Hyperlipidemia, unspecified; K21.9 Gastro-esophageal reflux disease without esophagitis; Z79.1 Long term (current) use of non-steroidal anti-inflammatories (NSAID); Z79.51 Long term (current) use of inhaled steroids; Z79.899 Other long term (current) drug therapy; Z79.82 Long term (current) use of aspirin; Z88.1 Allergy status to other antibiotic agents; Z88.5 Allergy status to narcotic agent; Z91.048 Other nonmedicinal substance allergy status; M19.90 Unspecified osteoarthritis, unspecified site; Z96.653 Presence of artificial knee joint, bilateral; Z98.1 Arthrodesis status; Z86.711 Personal history of pulmonary embolism
CPT/HCPCS: 36415; 71046; 80053; 82550; 82553; 83735; 83880; 84484; 85025; 99285

== ENCOUNTER 2021-03-05 13:14 | Emergency (ER) | payer MEDICARE, BC ==
--- NOTE | 2021-03-05 14:09 | ED ---
SOB HPI - General Chief Complaint: Shortness of Breath Stated Complaint: bronchitis Time Seen by Provider: 03/05/21 13:26 Source: patient Mode of arrival: ambulatory Limitations: no limitations - History of Present Illness Initial Comments: Patient is a 75-year-old female with history of COPD, asthma, presenting to emergency Department with complaints of shortness of breath, fatigue over the last week. She was diagnosed with bronchitis on 02/24, will given a prescription for z-pack and albuterol inhalers. She states she was not feeling improvement so they switched her antibiotic to Augmentin which she started 6 days ago. He continues with her breathing treatments at home as well as inhalers. She states her cough has turned from a productive cough to a dry cough. She's had no fevers, she is eating and drinking as normal. She just feels increasingly fatigued. She did have a covid test performed 3 days ago, that was negative. She denies any chest pains. She states she is no longer wheezing like she was. She denies any abdominal pain, no nausea or vomiting. She has no further complaints at this time. States she spoke to her doctor and they recommended her coming into the ER for chest x-ray and lab work. Upon Arrival to the ER, her vitals are stable. - Related Data Home Medications Medication Instructions Recorded Confirmed Aspirin 81 mg PO HS 03/09/15 08/13/18 Ferrous Sulfate [Feosol] 325 mg PO DAILY 03/09/15 08/13/18 Multivit with Calcium,Iron,Min 1 tab PO DAILY 03/09/15 08/13/18 [Women's Daily Multivitamin] Omeprazole [PriLOSEC] 20 mg PO AC-BID 03/09/15 08/13/18 Pravastatin Sodium [Pravachol] 40 mg PO HS 03/09/15 08/13/18 atenoloL [Tenormin] 25 mg PO DAILY 03/09/15 08/13/18 Meloxicam [Mobic] 15 mg PO DAILY 10/25/17 08/13/18 Tolterodine Tartrate [Detrol LA] 4 mg PO HS 10/25/17 08/13/18 Vit A/Vit C/Vit E/Zinc/Copper 1 cap PO BID 06/19/18 08/13/18 [ICAPS SOFTGEL] Budesonide-Formot 160-4.5 Mcg 2 puff INHALATION RT-BID 06/26/18 08/13/18 [Symbicort 160-4.5 Mcg Inhaler] Ipratropium-Albuterol Nebulize 3 ml INHALATION RT-QID PRN 06/26/18 08/07/18 [Duoneb 0.5 mg-3 mg/3 ml Soln] Melatonin 3 mg PO HS PRN 08/07/18 08/13/18 Ranitidine HCl [Zantac] 300 mg PO HS 08/07/18 08/13/18 Previous Rx's Medication Instructions Recorded Albuterol Inhaler (Mhu) [Ventolin 1 - 2 puff INHALATION RT-Q6H PRN 06/23/18 Hfa Inhaler (Mhu)] #1 inhaler amLODIPine BESYLATE/BENAZEPRIL 1 cap PO BID #60 capsule 06/23/18 [Lotrel 5-10 MG] predniSONE 50 mg PO DAILY #5 tab 03/05/21 Allergies Allergy/AdvReac Type Severity Reaction Status Date / Time cephalexin monohydrate Allergy membranous Verified 03/05/21 13:22 [From Keflex] colitis adhesive AdvReac skin Verified 03/05/21 13:22 blisters metronidazole [From Flagyl] AdvReac Nausea & Verified 03/05/21 13:22 Vomiting morphine AdvReac Hallucinations, Verified 03/05/21 13:22 N/V oxycodone HCl [From Percocet] AdvReac Hallucinations, Verified 03/05/21 13:22 N/V Review of Systems ROS Statement: Those systems with pertinent positive or pertinent negative responses have been documented in the HPI. ROS Other: All systems not noted in ROS Statement are negative. Past Medical History Past Medical History: Asthma, COPD, Eye Disorder, Fibromyalgia, GERD/Reflux, GI Bleed, Hyperlipidemia, Hypertension, Osteoarthritis (OA), Pneumonia, Pulmonary Embolus (PE) Additional Past Medical History / Comment(s): Possible TIA, pulmonary embolism 1996/was on HRT, bilateral macular degeneration-R eye wet/L eye dry, bilateral eyes retinoschesis, difficulty with night vision, arthritis multiple joints, anemia, colon polyps-benign, lower GI bleed x 2 thought d/t hemorrhoids, IBS, diverticulosis, kidney stones, UTIs, past hemorrhagic cystitis, cystocele/pessary, past L sided rib fractures, recent admission in June for SOB possibly related to exacerbation of asthma History of Any Multi-Drug Resistant Organisms: None Reported Past Surgical History: Adenoidectomy, Bladder Surgery, Hysterectomy, Joint Replacement, Orthopedic Surgery, Tonsillectomy Additional Past Surgical History / Comment(s): Colonoscopies/benign polypectomy, bladder suspension, D&C, bilateral total knee replacements, cervical fusion with titanium plate, bilateral cataract removals/lens implants, R eye injections every 6 weeks, L retinal hole/patched. Past Anesthesia/Blood Transfusion Reactions: Postoperative Nausea & Vomiting (PONV) Additional Past Anesthesia/Blood Transfusion Reaction / Comment(s): difficult IV start Past Psychological History: No Psychological Hx Reported Smoking Status: Never smoker Past Alcohol Use History: None Reported Past Drug Use History: None Reported - Past Family History Daughter(s) Family Medical History: Cancer Additional Family Medical History / Comment(s): breast Father Family Medical History: Pulmonary Embolus Additional Family Medical History / Comment(s): Father of a PE at the age of 82 yrs. Mother Family Medical History: Dementia, Eye Disorder, Hypertension Additional Family Medical History / Comment(s): Mother had severe arthritis, macular degeneration and glaucoma. She at the age of 92 yrs. General Exam - General Exam Comments Initial Comments: GENERAL: Patient is well-developed and well-nourished. Patient is nontoxic and in no acute distress. HEAD: Atraumatic, normocephalic. EYES: Pupils equal round and reactive to light, extraocular movements intact, sclera anicteric, conjunctiva are normal. Eyelids were unremarkable. ENT: TMs normal, nares patent, oropharynx clear without exudates. Moist mucous membranes. NECK: Normal range of motion, supple without lymphadenopathy or JVD. LUNGS: Unlabored respirations. Breath sounds clear to auscultation bilaterally and equal. No wheezes rales or rhonchi. HEART: Regular rate and rhythm without murmurs, rubs or gallops. ABDOMEN: Soft, nontender, normoactive bowel sounds. No guarding, no rebound. No masses appreciated. : Deferred MUSCULOSKELETAL: Normal extremities with adequate strength and normal range of motion, no pitting or edema. No clubbing or cyanosis. NEUROLOGICAL: Patient is alert and oriented x 3. Motor and sensory are also intact. Cranial nerves II through XII grossly intact. Symmetrical smile. Normal speech, normal gait. PSYCH: Normal mood, normal affect. SKIN: Warm, Dry, normal turgor, no rashes or lesions noted. Limitations: no limitations Course Vital Signs 03/05/21 03/05/21 03/05/21 13:18 14:21 15:18 Temperature 98.5 F 98.0 F Pulse Rate 91 77 Respiratory 22 18 18 Rate Blood Pressure 144/74 137/80 O2 Sat by Pulse 96 97 Oximetry Medical Decision Making - Medical Decision Making Patient is a 75-year-old female with history of COPD, asthma, presenting for shortness of breath, fatigue. She was diagnosed with bronchitis a week and a half ago, currently on Augmentin, inhalers and nebulizer treatments. Her vital signs are stable upon arrival. Her PCP sent her in for chest x-ray and further workup. Her exam reveals no wheezing, unremarkable. Labs reveal no acute findings, chest x-ray is reading increased interstitial opacities stress edema which could be secondary to infection or cardiogenic. Upon reviewing the chest x-ray ourselves, appears very similar nature to her previous accessory and I feel no concern for pneumonia. I discussed these findings with the patient. Patient will continue with her already prescribed medications, I will give her dose of steroids today and start her on prednisone tomorrow. She'll follow up with her PCP. She is in agreement this plan of care and is stable for discharge. Return parameters were discussed with her and she verbalized understanding. Case discussed Dr. Lares. - Lab Data Result diagrams: 03/05/21 05:58 03/05/21 14:11 Lab Results 03/05/21 03/05/21 Range/Units 05:58 14:11 WBC 9.5 (3.8-10.6) k/uL RBC 4.08 (3.80-5.40) m/uL Hgb 13.3 (11.4-16.0) gm/dL Hct 38.0 (34.0-46.0) % MCV 93.0 (80.0-100.0) fL MCH 32.5 (25.0-35.0) pg MCHC 35.0 (31.0-37.0) g/dL RDW 13.1 (11.5-15.5) % Plt Count 231 (150-450) k/uL MPV 8.3 Neutrophils % 67 % Lymphocytes % 22 % Monocytes % 7 % Eosinophils % 3 % Basophils % 1 % Neutrophils # 6.4 (1.3-7.7) k/uL Lymphocytes # 2.1 (1.0-4.8) k/uL Monocytes # 0.6 (0-1.0) k/uL Eosinophils # 0.3 (0-0.7) k/uL Basophils # 0.1 (0-0.2) k/uL Sodium 141 (137-145) mmol/L Potassium 4.6 (3.5-5.1) mmol/L Chloride 108 H (98-107) mmol/L Carbon Dioxide 24 (22-30) mmol/L Anion Gap 9 mmol/L BUN 21 H (7-17) mg/dL Creatinine 0.83 (0.52-1.04) mg/dL Est GFR (CKD-EPI)AfAm 79 (>60 ml/min/1.73 sqM) Est GFR (CKD-EPI)NonAf 69 (>60 ml/min/1.73 sqM) Glucose 97 (74-99) mg/dL Calcium 9.7 (8.4-10.2) mg/dL Total Bilirubin 0.3 (0.2-1.3) mg/dL AST 28 (14-36) U/L ALT 23 (4-34) U/L Alkaline Phosphatase 100 (38-126) U/L Total Protein 6.9 (6.3-8.2) g/dL Albumin 4.5 (3.5-5.0) g/dL Disposition Clinical Impression: Bronchitis Disposition: HOME SELF-CARE Condition: Stable Instructions (If sedation given, give patient instructions): Acute Bronchitis (ED) Additional Instructions: Please return to the Emergency Department if symptoms worsen or any other concerns. Continue with your already prescribed antibiotics, inhalers, as well as nebulizer treatments. Add on steroids, to be started tomorrow. Follow up with your primary care physician. Prescriptions: predniSONE 50 mg PO DAILY #5 tab Is patient prescribed a controlled substance at d/c from ED?: No Referrals: Gelacio Wetzel MD [Primary Care Provider] - 1-2 days Time of Disposition: 15:02
--- NOTE | 2021-03-05 14:16 | XR ---
EXAMINATION TYPE: XR chest 2V DATE OF EXAM: 03/05/2021 COMPARISON: 03/09/2020 HISTORY: Cough and fatigue TECHNIQUE: Frontal and lateral views of the chest are obtained. FINDINGS THE IMPRESSION: Increased interstitial opacities suggests edema which could be secondary to infection, atypical infec tion or cardiogenic. No focal airspace disease, pneumothorax or pleural effusion.There is stable left hemidiaphragm eventr ation. The cardiomediastinal silhouette is within normal. A midline lower mediastinal opacity is noted and may represent gastroesophageal hiatal hernia most se en on prior study. No acute osseous abnormality seen.
[2021-03-05 14:22] LABS: Basophils # (A) 0.1 k/uL (0-0.2); Basophils % (A) 1 %; Eosinophils # (A) 0.3 k/uL (0-0.7); Eosinophils % (A) 3 %; HGB 13.3 gm/dL (11.4-16.0); Lymphocytes # (A) 2.1 k/uL (1.0-4.8); Lymphocytes % (A) 22 %; MCH 32.5 pg (25.0-35.0); Mean Platelet Volume 8.3; Monocytes # (A) 0.6 k/uL (0-1.0); Monocytes % (A) 7 %; Neutrophils # (A) 6.4 k/uL (1.3-7.7); Neutrophils % (A) 67 %; Platelet Count 231 k/uL (150-450); RBC 4.08 m/uL (3.80-5.40); RDW 13.1 % (11.5-15.5); WBC 9.5 k/uL (3.8-10.6)
[2021-03-05 14:30] LABS: Albumin 4.5 g/dL (3.5-5.0); Calcium 9.7 mg/dL (8.4-10.2); Potassium 4.6 mmol/L (3.5-5.1); Total Bilirubin 0.3 mg/dL (0.2-1.3); Total Protein 6.9 g/dL (6.3-8.2)
[2021-03-05] MEDS ORDERED: methylPREDNISolone SOD SUCCI 125 MG/2 ML VIAL IV STA (15:00)
[2021-03-05 15:17] VITALS: RESP 18
[2021-03-05 15:19] VITALS: BP 137/80; PULSE 77; TEMP 98
== END 2021-03-05 15:19 | disposition home or self-care (01) ==
LOC: EC 13:14
DX: J20.9 Acute bronchitis, unspecified (principal); J44.0 Chronic obstructive pulmonary disease with (acute) lower respiratory infection; M79.7 Fibromyalgia; K21.9 Gastro-esophageal reflux disease without esophagitis; E78.5 Hyperlipidemia, unspecified; I10 Essential (primary) hypertension; M19.90 Unspecified osteoarthritis, unspecified site; Z86.711 Personal history of pulmonary embolism; Z90.710 Acquired absence of both cervix and uterus; Z90.49 Acquired absence of other specified parts of digestive tract
CPT/HCPCS: 36415; 80053; 85025; 71046; 99285; 96374; J2930

== ENCOUNTER 2021-03-06 13:15 | Emergency (ER) | payer MEDICARE, BC ==
[2021-03-06 13:19] VITALS: TEMP 98.1
[2021-03-06] MEDS ORDERED: SODIUM CHLORIDE 0.9% 500 ML 500 ML IV STA (13:29)
--- NOTE | 2021-03-06 13:32 | ED ---
General Adult HPI - General Chief complaint: Arrhythmia/Palpitations Stated complaint: Irregular Heart Rate Time Seen by Provider: 03/06/21 13:15 Source: patient, RN notes reviewed, old records reviewed Mode of arrival: ambulatory Limitations: no limitations - History of Present Illness Initial comments: This is a 75-year-old female who presents emergency Department complaining that she was having irregular heartbeat earlier today. Patient states she was just emergency department yesterday because of bronchitis that she's been hitting her albuterol inhaler quite a bit more recently. Patient states she didn't feel short of breath or having any chest pain while she was having the irregular heartbeat but she could feel it in her neck. Patient states she had a mammogram 1:00 associated come directly to the emergency department and now it only as occurring once in a while. Patient denies any recent fever or chills. Patient states her cough is considerably better than it was yesterday. Patient denies any abdominal pain patient denies any nausea vomiting diarrhea. - Related Data Home Medications Medication Instructions Recorded Confirmed Aspirin 81 mg PO HS 03/09/15 08/13/18 Ferrous Sulfate [Feosol] 325 mg PO DAILY 03/09/15 08/13/18 Multivit with Calcium,Iron,Min 1 tab PO DAILY 03/09/15 08/13/18 [Women's Daily Multivitamin] Omeprazole [PriLOSEC] 20 mg PO AC-BID 03/09/15 08/13/18 Pravastatin Sodium [Pravachol] 40 mg PO HS 03/09/15 08/13/18 atenoloL [Tenormin] 25 mg PO DAILY 03/09/15 08/13/18 Meloxicam [Mobic] 15 mg PO DAILY 10/25/17 08/13/18 Tolterodine Tartrate [Detrol LA] 4 mg PO HS 10/25/17 08/13/18 Vit A/Vit C/Vit E/Zinc/Copper 1 cap PO BID 06/19/18 08/13/18 [ICAPS SOFTGEL] Budesonide-Formot 160-4.5 Mcg 2 puff INHALATION RT-BID 06/26/18 08/13/18 [Symbicort 160-4.5 Mcg Inhaler] Ipratropium-Albuterol Nebulize 3 ml INHALATION RT-QID PRN 06/26/18 08/07/18 [Duoneb 0.5 mg-3 mg/3 ml Soln] Melatonin 3 mg PO HS PRN 08/07/18 08/13/18 Ranitidine HCl [Zantac] 300 mg PO HS 08/07/18 08/13/18 Previous Rx's Medication Instructions Recorded Albuterol Inhaler (Mhu) [Ventolin 1 - 2 puff INHALATION RT-Q6H PRN 06/23/18 Hfa Inhaler (Mhu)] #1 inhaler amLODIPine BESYLATE/BENAZEPRIL 1 cap PO BID #60 capsule 06/23/18 [Lotrel 5-10 MG] predniSONE 50 mg PO DAILY #5 tab 03/05/21 Allergies Allergy/AdvReac Type Severity Reaction Status Date / Time cephalexin monohydrate Allergy membranous Verified 03/06/21 13:19 [From Keflex] colitis adhesive AdvReac skin Verified 03/06/21 13:19 blisters metronidazole [From Flagyl] AdvReac Nausea & Verified 03/06/21 13:19 Vomiting morphine AdvReac Hallucinations, Verified 03/06/21 13:19 N/V oxycodone HCl [From Percocet] AdvReac Hallucinations, Verified 03/06/21 13:19 N/V Review of Systems ROS Statement: Those systems with pertinent positive or pertinent negative responses have been documented in the HPI. ROS Other: All systems not noted in ROS Statement are negative. Past Medical History Past Medical History: Asthma, COPD, Eye Disorder, Fibromyalgia, GERD/Reflux, GI Bleed, Hyperlipidemia, Hypertension, Osteoarthritis (OA), Pneumonia, Pulmonary Embolus (PE) Additional Past Medical History / Comment(s): Possible TIA, pulmonary embolism 1996/was on HRT, bilateral macular degeneration-R eye wet/L eye dry, bilateral eyes retinoschesis, difficulty with night vision, arthritis multiple joints, anemia, colon polyps-benign, lower GI bleed x 2 thought d/t hemorrhoids, IBS, diverticulosis, kidney stones, UTIs, past hemorrhagic cystitis, cystocele/pessary, past L sided rib fractures, recent admission in June for SOB possibly related to exacerbation of asthma History of Any Multi-Drug Resistant Organisms: None Reported Past Surgical History: Adenoidectomy, Bladder Surgery, Hysterectomy, Joint Replacement, Orthopedic Surgery, Tonsillectomy Additional Past Surgical History / Comment(s): Colonoscopies/benign polypectomy, bladder suspension, D&C, bilateral total knee replacements, cervical fusion with titanium plate, bilateral cataract removals/lens implants, R eye injections every 6 weeks, L retinal hole/patched. Past Anesthesia/Blood Transfusion Reactions: Postoperative Nausea & Vomiting (PONV) Additional Past Anesthesia/Blood Transfusion Reaction / Comment(s): difficult IV start Past Psychological History: No Psychological Hx Reported Smoking Status: Never smoker Past Alcohol Use History: None Reported Past Drug Use History: None Reported - Past Family History Daughter(s) Family Medical History: Cancer Additional Family Medical History / Comment(s): breast Father Family Medical History: Pulmonary Embolus Additional Family Medical History / Comment(s): Father of a PE at the age of 82 yrs. Mother Family Medical History: Dementia, Eye Disorder, Hypertension Additional Family Medical History / Comment(s): Mother had severe arthritis, macular degeneration and glaucoma. She at the age of 92 yrs. General Exam - General Exam Comments Initial Comments: GENERAL: Patient is well-developed and well-nourished. Patient is nontoxic and well- hydrated and is in no acute distress. ENT: Neck is soft and supple. No significant lymphadenopathy is noted. Oropharynx is clear. Moist mucous membranes. Neck has full range of motion without eliciting any pain. EYES: The sclera were anicteric and conjunctiva were pink and moist. Extraocular movements were intact and pupils were equal round and reactive to light. Eyelids were unremarkable. PULMONARY: Unlabored respirations. Good breath sounds bilaterally. CARDIOVASCULAR: Patient is a regular rate and rhythm with an occasional extrasystole. ABDOMEN: Soft and nontender with normal bowel sounds. SKIN: Skin is clear with no lesions or rashes and otherwise unremarkable. NEUROLOGIC: Patient is alert and oriented x3. Cranial nerves II through XII are grossly intact. Motor and sensory are also intact. Normal speech, volume and content. Symmetrical smile. MUSCULOSKELETAL: Normal extremities with adequate strength and full range of motion. No lower extremity swelling or edema. No calf tenderness. LYMPHATICS: No significant lymphadenopathy is noted PSYCHIATRIC: Normal psychiatric evaluation. Limitations: no limitations Course Vital Signs 03/06/21 03/06/21 13:17 14:30 Temperature 98.1 F Pulse Rate 86 76 Respiratory 18 17 Rate Blood Pressure 156/80 127/68 O2 Sat by Pulse 97 99 Oximetry Medical Decision Making - Medical Decision Making Patient was throwing multiple PVCs while she was in the emergency department. Patient's thyroid stimulant hormone was essentially 0. Patient was also mildly dehydrated. EKG shows sinus rhythm with occasional PVC at 83 bpm TX interval 150 QRS is 80 QT interval 360 QTC is 432. Patient's EKG shows no ST segment elevation or depression. - Lab Data Result diagrams: 03/06/21 13:38 03/06/21 13:38 Lab Results 03/06/21 03/06/21 03/06/21 Range/Units 13:38 13:38 13:38 WBC 18.0 H (3.8-10.6) k/uL RBC 4.09 (3.80-5.40) m/uL Hgb 13.1 (11.4-16.0) gm/dL Hct 38.0 (34.0-46.0) % MCV 93.0 (80.0-100.0) fL MCH 32.1 (25.0-35.0) pg MCHC 34.5 (31.0-37.0) g/dL RDW 13.1 (11.5-15.5) % Plt Count 247 (150-450) k/uL MPV 8.5 Neutrophils % 85 % Lymphocytes % 9 % Monocytes % 5 % Eosinophils % 0 % Basophils % 0 % Neutrophils # 15.3 H (1.3-7.7) k/uL Lymphocytes # 1.6 (1.0-4.8) k/uL Monocytes # 0.9 (0-1.0) k/uL Eosinophils # 0.0 (0-0.7) k/uL Basophils # 0.0 (0-0.2) k/uL PT 9.7 (9.0-12.0) sec INR 0.9 (<1.2) APTT 21.1 L (22.0-30.0) sec Sodium 137 (137-145) mmol/L Potassium 4.8 (3.5-5.1) mmol/L Chloride 106 (98-107) mmol/L Carbon Dioxide 22 (22-30) mmol/L Anion Gap 9 mmol/L BUN 22 H (7-17) mg/dL Creatinine 0.74 (0.52-1.04) mg/dL Est GFR (CKD-EPI)AfAm >90 (>60 ml/min/1.73 sqM) Est GFR (CKD-EPI)NonAf 79 (>60 ml/min/1.73 sqM) Glucose 122 H (74-99) mg/dL Calcium 10.2 (8.4-10.2) mg/dL Magnesium 2.0 (1.6-2.3) mg/dL Total Bilirubin 0.2 (0.2-1.3) mg/dL AST 27 (14-36) U/L ALT 22 (4-34) U/L Alkaline Phosphatase 134 H (38-126) U/L Troponin I (0.000-0.034) ng/mL Total Protein 7.2 (6.3-8.2) g/dL Albumin 4.6 (3.5-5.0) g/dL TSH <0.015 L (0.465-4.680) mIU/L Free T4 (0.78-2.19) ng/dL Free T3 pg/mL (2.8-5.3) pg/ml 03/06/21 03/06/21 Range/Units 13:38 15:11 WBC (3.8-10.6) k/uL RBC (3.80-5.40) m/uL Hgb (11.4-16.0) gm/dL Hct (34.0-46.0) % MCV (80.0-100.0) fL MCH (25.0-35.0) pg MCHC (31.0-37.0) g/dL RDW (11.5-15.5) % Plt Count (150-450) k/uL MPV Neutrophils % % Lymphocytes % % Monocytes % % Eosinophils % % Basophils % % Neutrophils # (1.3-7.7) k/uL Lymphocytes # (1.0-4.8) k/uL Monocytes # (0-1.0) k/uL Eosinophils # (0-0.7) k/uL Basophils # (0-0.2) k/uL PT (9.0-12.0) sec INR (<1.2) APTT (22.0-30.0) sec Sodium (137-145) mmol/L Potassium (3.5-5.1) mmol/L Chloride (98-107) mmol/L Carbon Dioxide (22-30) mmol/L Anion Gap mmol/L BUN (7-17) mg/dL Creatinine (0.52-1.04) mg/dL Est GFR (CKD-EPI)AfAm (>60 ml/min/1.73 sqM) Est GFR (CKD-EPI)NonAf (>60 ml/min/1.73 sqM) Glucose (74-99) mg/dL Calcium (8.4-10.2) mg/dL Magnesium (1.6-2.3) mg/dL Total Bilirubin (0.2-1.3) mg/dL AST (14-36) U/L ALT (4-34) U/L Alkaline Phosphatase (38-126) U/L Troponin I <0.012 (0.000-0.034) ng/mL Total Protein (6.3-8.2) g/dL Albumin (3.5-5.0) g/dL TSH (0.465-4.680) mIU/L Free T4 1.44 (0.78-2.19) ng/dL Free T3 pg/mL 3.8 (2.8-5.3) pg/ml Disposition Clinical Impression: Palpitations, PVCs (premature ventricular contractions), Dehydration Disposition: HOME SELF-CARE Condition: Good Instructions (If sedation given, give patient instructions): Heart Palpitations (ED) Is patient prescribed a controlled substance at d/c from ED?: No Referrals: Gelacio Wetzel MD [Primary Care Provider] - 1-2 days Time of Disposition: 15:04
[2021-03-06 14:24] LABS: ALT 22 U/L (4-34); AST 27 U/L (14-36); African American GFR (CKD) >90 (>60 ml/min/1.73 sqM); Albumin 4.6 g/dL (3.5-5.0); Alkaline Phosphatase 134 U/L (38-126); Anion Gap 9 mmol/L; Basophils % (A) 0 %; Blood Urea Nitrogen 22 mg/dL (7-17); Calcium 10.2 mg/dL (8.4-10.2); Carbon Dioxide 22 mmol/L (22-30); Chloride 106 mmol/L (98-107); Eosinophils % (A) 0 %; Glucose 122 mg/dL (74-99); HGB 13.1 gm/dL (11.4-16.0); Lymphocytes # (A) 1.6 k/uL (1.0-4.8); Lymphocytes % (A) 9 %; MCH 32.1 pg (25.0-35.0); MCHC 34.5 g/dL (31.0-37.0); Mean Platelet Volume 8.5; Monocytes # (A) 0.9 k/uL (0-1.0); Monocytes % (A) 5 %; Neutrophils # (A) 15.3 k/uL (1.3-7.7); Neutrophils % (A) 85 %; Non-African American GFR(CKD) 79 (>60 ml/min/1.73 sqM); Platelet Count 247 k/uL (150-450); Potassium 4.8 mmol/L (3.5-5.1); RBC 4.09 m/uL (3.80-5.40); RDW 13.1 % (11.5-15.5); Sodium 137 mmol/L (137-145); Total Bilirubin 0.2 mg/dL (0.2-1.3); Total Protein 7.2 g/dL (6.3-8.2)
[2021-03-06 14:31] VITALS: BP 127/68; PULSE 76; RESP 17
[2021-03-06 14:44] LABS: INR 0.9 (<1.2); Prothrombin Time 9.7 sec (9.0-12.0)
[2021-03-06 14:48] LABS: Partial Thromboplastin Time 21.1 sec (22.0-30.0)
[2021-03-06 16:00] LABS: T4, Free (Free Thyroxine) 1.44 ng/dL (0.78-2.19)
== END 2021-03-06 15:10 | disposition home or self-care (01) ==
LOC: EC 13:15
DX: I49.3 Ventricular premature depolarization (principal); E86.0 Dehydration; I10 Essential (primary) hypertension; J44.9 Chronic obstructive pulmonary disease, unspecified; E78.5 Hyperlipidemia, unspecified; K21.9 Gastro-esophageal reflux disease without esophagitis; M19.90 Unspecified osteoarthritis, unspecified site; M79.7 Fibromyalgia; Z79.1 Long term (current) use of non-steroidal anti-inflammatories (NSAID); Z79.51 Long term (current) use of inhaled steroids; Z79.52 Long term (current) use of systemic steroids; Z79.82 Long term (current) use of aspirin; Z86.711 Personal history of pulmonary embolism; Z88.1 Allergy status to other antibiotic agents; Z88.5 Allergy status to narcotic agent; Z82.61 Family history of arthritis; Z82.49 Family history of ischemic heart disease and other diseases of the circulatory system; Z96.653 Presence of artificial knee joint, bilateral
CPT/HCPCS: 36415; 80053; 83735; 84439; 84443; 84481; 84484; 85025; 85610; 85730; 93005; 96360; 96361; 99285

== ENCOUNTER → 2021-03-06 | Outpatient (CLI) | payer MEDICARE, BC ==
--- NOTE | 2021-03-09 09:42 | MM ---
Reason for exam: screening (asymptomatic). Last mammogram was performed 1 year ago. History: Patient is postmenopausal. Family history of breast cancer in daughter at age 40. Took hormonal contraceptives beginning at age 21. Took estrogen beginning at age 37. Taking other hormone. Physical Findings: A clinical breast exam by your physician is recommended on an annual basis and results should be correlated with mammographic findings. MG 3D Screening Mammo W/Cad Bilateral CC and MLO view(s) were taken. Prior study comparison: March 03, 2020, bilateral MG 3d screening mammo w/cad. November 25, 2018, bilateral MG 3d screening mammo w/cad. The breast tissue is heterogeneously dense. This may lower the sensitivity of mammography. Benign vascular calcifications. No significant changes when compared with prior studies. ASSESSMENT: Benign, BI-RAD 2 RECOMMENDATION: Routine screening mammogram of both breasts in 1 year.
== END | disposition home or self-care (01) ==
LOC: RADMAMWWP 12:56
PROVIDERS: ATTEND Obstetrics & Gynecology
DX: Z12.31 Encounter for screening mammogram for malignant neoplasm of breast (principal); Z78.0 Asymptomatic menopausal state; Z80.3 Family history of malignant neoplasm of breast
CPT/HCPCS: 77063; 77067

== ENCOUNTER 2021-11-03 06:53 | Day surgery (SDC) | payer MEDICARE, OTHER ==
[2021-09-18 08:32] VITALS: BMI 37.8
[2021-11-03 07:25] VITALS: TEMP 97.9
[2021-11-03] MEDS ORDERED: LACTATED RINGERS 1,000 ML IV SCH (07:32)
[2021-11-03] MEDS ORDERED: LIDOCAINE 1% INJ 10MG/ML (20 ML MDV) ONE (07:43)
[2021-11-03] MEDS ORDERED: PROPOFOL 10 MG/ML 20 ML VIAL IV ONE (07:43)
--- NOTE | 2021-11-03 08:06 | P.PCN ---
Date of Procedure: 11/03/21 Procedure(s) Performed: Brief history: Patient is a pleasant 76-year-old white female scheduled for an elective upper endoscopy as well as colonoscopy as a part of evaluation of long-standing history of GERD and screening for colon cancer Procedure performed: Esophagogastroduodenoscopy biopsy Colonoscopy with biopsy Preoperative diagnosis: Long-standing history of GERD Screening for colon cancer Anesthesia: MAC Procedure: After informed consent was obtained from the patient was brought into the end oscopy unit and IV sedation was administered by anesthesia under continuous monitoring. Initially upper endoscopy was done. The Olympus GF 160 video endoscope was inserted inserted into the mouth and esophagus intubated without any difficulty and was gradually advanced into the stomach and duodenum and carefully examined. The bulb and second part of the duodenum appeared normal. The scope was then withdrawn into the stomach adequately insufflated with air and upon careful examination the antrum had gastritis and biopsies were done from this area. The body, cardia and fundus appeared normal. I'll double polyps noted in the gastric body which were biopsied. The scope was then withdrawn into the esophagus. Moderate size hiatal hernia noted. The GE junction was located at 32 cm to the incisors. It appeared regular with no erythema erosions or ulcerations. Rest of the esophagus appeared normal. Patient tolerated the procedure well. At this time the patient continued to remain sedation. Initial digital rectal examination was normal. Olympus CF 160 video colonoscope was then inserted into the rectum and gradually advanced to the cecum without any difficulty. Careful examination was performed as the scope was gradually being withdrawn. The prep was excellent. The cecum, appeared normal. In the ascending colon there was a 3 mm sessile polyp that was removed by cold biopsy. Rest of the ascending colon, transverse colon, descending colon, sigmoid colon and rectum appeared normal. Colon there was another 3 mm sessile polyp removed by cold biopsy. Scattered sigmoid diverticulosis seen. Retroflexion was performed in the rectum and no lesions were noted. Patient tolerated the procedure well. Impression: 1. Upper endoscopy revealed mild antral gastritis, multiple small gastric polyps and moderate size hiatal hernia 2. Colonoscopy revealed 3 mm ascending colon polyp and a 3 mm; sigmoid polyp status post cold biopsy and scattered sigmoid diverticulosis Recommendations: Findings of this examination were discussed with the patient as well as her family. She was advised to follow with the biopsy results. Continue with omeprazole 20 mg daily and follow antireflux measures. If the biopsies reveal adenoma she can have a repeat colonoscopy in 5 years based on her overall medical condition.
[2021-11-03 08:37] VITALS: BP 129/57; PULSE 63; RESP 18
== END 2021-11-03 08:48 | disposition home or self-care (01) ==
LOC: ORWHC2ENDO 06:53
PROVIDERS: ATTEND Internal Medicine Gastroenterology
DX: Z12.11 Encounter for screening for malignant neoplasm of colon (principal); K21.9 Gastro-esophageal reflux disease without esophagitis; Z86.010 Personal history of colon polyps
CPT/HCPCS: 45380; 43239; 88305; J2001; J2704

== ENCOUNTER 2021-11-27 03:38 | Emergency (ER) | payer MEDICARE, OTHER ==
[2021-11-27] MEDS ORDERED: PANTOPRAZOLE 40 MG/10 ML VIAL IVP STA (03:43)
[2021-11-27] MEDS ORDERED: SODIUM CHLORIDE 0.9% 1,000 ML IV STA ×2 (03:43)
[2021-11-27] MEDS ORDERED: ONDANSETRON 4 MG/2 ML VIAL IVP STA (03:43)
--- NOTE | 2021-11-27 03:46 | ED ---
Nausea/Vomiting/Diarrhea HPI - General Stated complaint: Nausea, vomiting Time Seen by Provider: 11/27/21 03:43 Source: RN notes reviewed, old records reviewed Limitations: no limitations - History of Present Illness Initial comments: This is a 76-year-old female to the emergency department for evaluation. Persistent nausea vomiting, sick with significant nausea vomiting without fevers. MD complaint: nausea, vomiting -: hour(s) Description of Vomiting: food contents Description of Diarrhea: water Associated Abdominal Pain: Yes Location: diffuse Severity: mild Severity scale (1-10): 2 Quality: cramping Consistency: intermittent Improves with: none Worsens with: eating Associated Symptoms: loss of appetite, nausea/vomiting, weakness - Related Data Home Medications Medication Instructions Recorded Confirmed Ferrous Sulfate [Feosol] 325 mg PO DAILY 03/09/15 11/03/21 Multivit with Calcium,Iron,Min 1 tab PO DAILY 03/09/15 11/03/21 [Women's Daily Multivitamin] Omeprazole [PriLOSEC] 20 mg PO AC-BID 03/09/15 11/03/21 Pravastatin Sodium [Pravachol] 40 mg PO HS 03/09/15 11/03/21 atenoloL [Tenormin] 25 mg PO HS 03/09/15 11/03/21 Meloxicam [Mobic] 15 mg PO DAILY 10/25/17 11/03/21 Ipratropium-Albuterol Nebulize 3 ml INHALATION RT-QID PRN 06/26/18 11/03/21 [Duoneb 0.5 mg-3 mg/3 ml Soln] Melatonin 3 mg PO HS 08/07/18 11/03/21 Cholecalciferol [Vitamin D3 (125 125 mcg PO DAILY 09/18/21 11/03/21 Mcg = 5000 Iu)] Docusate [Colace] 100 mg PO DAILY 09/18/21 11/03/21 Estrogens, Conjugated Cream 1 applicator VAGINAL DIRECTED 09/18/21 11/03/21 [Premarin Vaginal Cream] Famotidine [Pepcid] 40 mg PO HS 09/18/21 11/03/21 Linaclotide [Linzess] 72 mcg PO DAILY PRN 09/18/21 11/03/21 Mirabegron [Myrbetriq] 50 mg PO DAILY 09/18/21 11/03/21 Retinavite 1 tab PO BID 09/18/21 11/03/21 Previous Rx's Medication Instructions Recorded Albuterol Inhaler (Mhu) [Ventolin 1 - 2 puff INHALATION RT-Q6H PRN 06/23/18 Hfa Inhaler (Mhu)] #1 inhaler amLODIPine BESYLATE/BENAZEPRIL 1 cap PO BID #60 capsule 06/23/18 [Lotrel 5-10 MG] Allergies Allergy/AdvReac Type Severity Reaction Status Date / Time cephalexin monohydrate Allergy membranous Verified 11/03/21 07:15 [From Keflex] colitis adhesive AdvReac skin Verified 11/03/21 07:15 blisters metronidazole [From Flagyl] AdvReac Nausea & Verified 11/03/21 07:15 Vomiting morphine AdvReac Hallucinations, Verified 11/03/21 07:15 N/V oxycodone HCl [From Percocet] AdvReac Hallucinations, Verified 11/03/21 07:15 N/V Review of Systems ROS Statement: Those systems with pertinent positive or pertinent negative responses have been documented in the HPI. ROS Other: All systems not noted in ROS Statement are negative. Past Medical History Past Medical History: Asthma, COPD, Eye Disorder, Fibromyalgia, GERD/Reflux, GI Bleed, Hyperlipidemia, Hypertension, Osteoarthritis (OA), Pneumonia, Pulmonary Embolus (PE) Additional Past Medical History / Comment(s): Possible TIA, pulmonary embolism 1996/was on HRT, bilateral macular degeneration-R eye wet/L eye dry, bilateral eyes retinoschesis, difficulty with night vision, arthritis multiple joints, anemia, colon polyps-benign, lower GI bleed x 2 thought d/t hemorrhoids, IBS w/constipation, diverticulosis, hiatal hernia, kidney stones, UTIs, past hemorrhagic cystitis, cystocele/pessary, past L sided rib fractures, bronchitis January 2021 History of Any Multi-Drug Resistant Organisms: None Reported Past Surgical History: Adenoidectomy, Bladder Surgery, Heart Catheterization, Hysterectomy, Joint Replacement, Orthopedic Surgery, Tonsillectomy Additional Past Surgical History / Comment(s): Colonoscopies/benign polypectomy, bladder suspension, D&C, bilateral total knee replacements, cervical fusion with titanium plate, bilateral cataract removals/lens implants, R eye injections every 6 weeks, L retinal hole/patched. Past Anesthesia/Blood Transfusion Reactions: Motion Sickness, Postoperative Nausea & Vomiting (PONV) Additional Past Anesthesia/Blood Transfusion Reaction / Comment(s): Difficult IV start. Past Psychological History: No Psychological Hx Reported Smoking Status: Never smoker Past Alcohol Use History: None Reported Past Drug Use History: None Reported - Past Family History Daughter(s) Family Medical History: Cancer Additional Family Medical History / Comment(s): Breast cancer. Father Family Medical History: Pulmonary Embolus Additional Family Medical History / Comment(s): Father of a PE at the age of 82 yrs. Mother Family Medical History: Dementia, Eye Disorder, Hypertension Additional Family Medical History / Comment(s): Mother had severe arthritis, macular degeneration and glaucoma. She at the age of 92 yrs. General Exam General appearance: alert, in no apparent distress Head exam: Present: atraumatic, normocephalic, normal inspection Eye exam: Present: normal appearance, PERRL, EOMI. Absent: scleral icterus, co njunctival injection, periorbital swelling ENT exam: Present: normal exam, mucous membranes moist Neck exam: Present: normal inspection. Absent: tenderness, meningismus, lymphadenopathy Respiratory exam: Present: normal lung sounds bilaterally. Absent: respiratory distress, wheezes, rales, rhonchi, stridor Cardiovascular Exam: Present: regular rate, normal rhythm, normal heart sounds. Absent: systolic murmur, diastolic murmur, rubs, gallop, clicks GI/Abdominal exam: Present: soft, normal bowel sounds. Absent: distended, tenderness, guarding, rebound, rigid Extremities exam: Present: normal inspection, full ROM, normal capillary refill. Absent: tenderness, pedal edema, joint swelling, calf tenderness Back exam: Present: normal inspection Neurological exam: Present: alert, oriented X3, CN II-XII intact Psychiatric exam: Present: normal affect, normal mood Skin exam: Present: warm, dry, intact, normal color. Absent: rash Course Vital Signs 11/27/21 11/27/21 11/27/21 03:43 04:48 06:09 Temperature 98.8 F Pulse Rate 102 H 96 105 H Respiratory 18 20 18 Rate Blood Pressure 138/88 131/77 124/55 O2 Sat by Pulse 97 97 98 Oximetry 11/27/21 06:34 Temperature Pulse Rate 77 Respiratory 18 Rate Blood Pressure 132/78 O2 Sat by Pulse 96 Oximetry - Reevaluation(s) Reevaluation #1: 11/27/21 03:46 Medical record is reviewed Patient feels improved here in the ER Patient informed results and questions answered Medical Decision Making - Medical Decision Making 71 female to the emergency department for nausea vomiting no diarrhea. Patient feeling much better here in the ER able tolerate on take and can be discharged home - Lab Data Result diagrams: 11/27/21 03:59 11/27/21 03:59 Lab Results 11/27/21 11/27/21 Range/Units 03:59 03:59 WBC 16.4 H (3.8-10.6) k/uL RBC 4.79 (3.80-5.40) m/uL Hgb 15.1 (11.4-16.0) gm/dL Hct 45.5 (34.0-46.0) % MCV 95.0 (80.0-100.0) fL MCH 31.6 (25.0-35.0) pg MCHC 33.3 (31.0-37.0) g/dL RDW 13.7 (11.5-15.5) % Plt Count 166 (150-450) k/uL MPV 8.9 Neutrophils % 95 % Lymphocytes % 2 % Monocytes % 2 % Eosinophils % 0 % Basophils % 0 % Neutrophils # 15.6 H (1.3-7.7) k/uL Lymphocytes # 0.3 L (1.0-4.8) k/uL Monocytes # 0.4 (0-1.0) k/uL Eosinophils # 0.1 (0-0.7) k/uL Basophils # 0.0 (0-0.2) k/uL Sodium 138 (137-145) mmol/L Potassium 4.4 (3.5-5.1) mmol/L Chloride 106 (98-107) mmol/L Carbon Dioxide 20 L (22-30) mmol/L Anion Gap 12 mmol/L BUN 24 H (7-17) mg/dL Creatinine 0.69 (0.52-1.04) mg/dL Est GFR (CKD-EPI)AfAm >90 (>60 ml/min/1.73 sqM) Est GFR (CKD-EPI)NonAf 84 (>60 ml/min/1.73 sqM) Glucose 167 H (74-99) mg/dL Calcium 9.1 (8.4-10.2) mg/dL Phosphorus 2.9 (2.5-4.5) mg/dL Magnesium 1.7 (1.6-2.3) mg/dL Total Bilirubin 0.7 (0.2-1.3) mg/dL AST 36 (14-36) U/L ALT 25 (4-34) U/L Alkaline Phosphatase 87 (38-126) U/L Total Protein 7.5 (6.3-8.2) g/dL Albumin 4.5 (3.5-5.0) g/dL Amylase 57 (30-110) U/L Lipase 127 (23-300) U/L Disposition Clinical Impression: Gastroenteritis, Dehydration Disposition: HOME SELF-CARE Condition: Good Instructions (If sedation given, give patient instructions): Acute Nausea and Vomiting (ED) Is patient prescribed a controlled substance at d/c from ED?: No Referrals: Gelacio Wetzel MD [Primary Care Provider] - 1-2 days
[2021-11-27 03:48] VITALS: TEMP 98.8
[2021-11-27 04:29] LABS: ALT 25 U/L (4-34); AST 36 U/L (14-36); African American GFR (CKD) >90 (>60 ml/min/1.73 sqM); Albumin 4.5 g/dL (3.5-5.0); Alkaline Phosphatase 87 U/L (38-126); Amylase 57 U/L (30-110); Anion Gap 12 mmol/L; Blood Urea Nitrogen 24 mg/dL (7-17); Calcium 9.1 mg/dL (8.4-10.2); Carbon Dioxide 20 mmol/L (22-30); Chloride 106 mmol/L (98-107); Glucose 167 mg/dL (74-99); Lipase 127 U/L (23-300); Magnesium 1.7 mg/dL (1.6-2.3); Non-African American GFR(CKD) 84 (>60 ml/min/1.73 sqM); Phosphorus 2.9 mg/dL (2.5-4.5); Potassium 4.4 mmol/L (3.5-5.1); Sodium 138 mmol/L (137-145); Total Bilirubin 0.7 mg/dL (0.2-1.3); Total Protein 7.5 g/dL (6.3-8.2)
[2021-11-27 04:53] LABS: Basophils % (A) 0 %; Eosinophils # (A) 0.1 k/uL (0-0.7); Eosinophils % (A) 0 %; HCT 45.5 % (34.0-46.0); HGB 15.1 gm/dL (11.4-16.0); Lymphocytes # (A) 0.3 k/uL (1.0-4.8); Lymphocytes % (A) 2 %; MCH 31.6 pg (25.0-35.0); MCHC 33.3 g/dL (31.0-37.0); Mean Platelet Volume 8.9; Monocytes # (A) 0.4 k/uL (0-1.0); Monocytes % (A) 2 %; Neutrophils # (A) 15.6 k/uL (1.3-7.7); Neutrophils % (A) 95 %; Platelet Count 166 k/uL (150-450); RBC 4.79 m/uL (3.80-5.40); RDW 13.7 % (11.5-15.5); WBC 16.4 k/uL (3.8-10.6)
[2021-11-27] MEDS ORDERED: ONDANSETRON 4 MG ODT STARTER PACK 2 TAB BTL PO STA (05:06)
[2021-11-27] MEDS ORDERED: PROCHLORPERAZINE INJ 10 MG/2 ML VIAL IVP STA (05:06)
[2021-11-27 06:11] VITALS: RESP 18
[2021-11-27 06:35] VITALS: BP 132/78; PULSE 77
== END 2021-11-27 07:05 | disposition home or self-care (01) ==
LOC: EC 03:38
DX: K52.9 Noninfective gastroenteritis and colitis, unspecified (principal); E86.0 Dehydration; I10 Essential (primary) hypertension; J44.9 Chronic obstructive pulmonary disease, unspecified; E78.5 Hyperlipidemia, unspecified; K21.9 Gastro-esophageal reflux disease without esophagitis; M19.90 Unspecified osteoarthritis, unspecified site; M79.7 Fibromyalgia; Z79.51 Long term (current) use of inhaled steroids; Z79.899 Other long term (current) drug therapy
CPT/HCPCS: 36415; 80053; 82150; 83690; 83735; 84100; 85025; 99284; 96374; 96375 ×2; 96361 ×2; J0780; J2405; S0119; C9113

== ENCOUNTER → 2022-03-07 | Outpatient (CLI) | payer MEDICARE, OTHER ==
--- NOTE | 2022-03-08 09:12 | MM ---
Reason for Exam: Screening (asymptomatic). Last screening mammogram was performed 12 month(s) ago. Patient History: Menarche at age 11. First Full-Term at age 17. Left ovary removed at age 37. Right ovary removed at age 37. Hysterectomy at age 37. Postmenopausal. Estrogen, from age 37 until age 52. Hormonal Contraceptives, from age 21 until age 22. Niece had breast cancer, age 42. Daughter had breast cancer, age 40. Risk Values: Queta 5 year model risk: 3.2%. NCI Lifetime model risk: 5.7%. Prior Study Comparison: 11/25/2018 Bilateral Screening Mammogram, [facility]. 03/03/2020 Bilateral Screening Mammogram, [facility]. 03/06/2021 Bilateral Screening Mammogram, [facility]. Tissue Density: The breast tissue is extremely dense which could obscure a lesion on mammography. Findings: Analyzed By CAD. No suspicious groups of microcalcifications, spiculated or lobular masses, architectural distortion or other secondary signs of malignancy are mammographically apparent. Overall Assessment: Benign, BI-RAD 2 Management: Screening Mammogram of both breasts in 1 year. A negative mammogram report should not preclude additional follow up of suspicious palpable abnormalities. Patient should continue monthly self breast exam. A clinical breast exam by your physician is recommended on an annual basis and results should be correlated with mammographic findings. Electronically signed and approved by: Natanael Tobias D.O. Radiologis
== END | disposition home or self-care (01) ==
LOC: RADMAMWWP 14:34
PROVIDERS: ATTEND Obstetrics & Gynecology
DX: Z12.31 Encounter for screening mammogram for malignant neoplasm of breast (principal); Z78.0 Asymptomatic menopausal state; Z80.3 Family history of malignant neoplasm of breast
CPT/HCPCS: 77063; 77067

== ENCOUNTER → 2023-03-11 | Outpatient (CLI) | payer MEDICARE, OTHER ==
--- NOTE | 2023-03-12 19:45 | MM ---
Reason for Exam: Screening (asymptomatic). Last screening mammogram was performed 12 month(s) ago. Patient History: Menarche at age 11. First Full-Term at age 17. Left ovary removed at age 37. Right ovary removed at age 37. Hysterectomy at age 37. Postmenopausal. Estrogen, from age 37 until age 52. Hormonal Contraceptives, from age 21 until age 22. Niece had breast cancer, age 42. Daughter had breast cancer, age 40. Risk Values: Queta 5 year model risk: 3.1%. NCI Lifetime model risk: 5.2%. Prior Study Comparison: 03/03/2020 Bilateral Screening Mammogram, [facility]. 03/06/2021 Bilateral Screening Mammogram, [facility]. 03/07/2022 Bilateral MG 3D screening mammo w/cad, [facility]. Tissue Density: The breast tissue is heterogeneously dense. This may lower the sensitivity of mammography. Findings: Analyzed By CAD. Chronic low density nodularity medial left breast. Grouped coarse microcalcifications remain unchanged lateral left breast. Additional benign oil cyst and vascular calcifications on both sides. There is no suspicious group of microcalcifications or new suspicious mass in either breast. Overall Assessment: Benign, BI-RAD 2 Management: Screening Mammogram of both breasts in 1 year. . Patient should continue monthly self-breast exams. A clinical breast exam by your physician is recommended on an annual basis. This exam should not preclude additional follow-up of suspicious palpable abnormalities. Note on Queta scores and lifetime risk: 1. A Queta score greater than 3% is considered moderate risk. If this is the case, consider specialist referral to assess eligibility for a risk reducing agent. 2. If overall lifetime risk for the development of breast cancer is 20% or higher, the patient may qualify for future screening with alternating mammogram and breast MRI. Electronically signed and approved by: Laine Chong M.D. Radiologist
== END | disposition home or self-care (01) ==
LOC: RADMAMWWP 14:49
PROVIDERS: ATTEND Obstetrics & Gynecology
DX: Z12.31 Encounter for screening mammogram for malignant neoplasm of breast (principal); Z78.0 Asymptomatic menopausal state; Z80.3 Family history of malignant neoplasm of breast
CPT/HCPCS: 77063; 77067

== ENCOUNTER → 2023-07-05 | Outpatient (CLI) | payer MEDICARE, OTHER | END | disposition home or self-care (01) | LOC: LABWHC1 13:56 | PROVIDERS: ATTEND Internal Medicine Critical Care Medicine | DX: J20.9 Acute bronchitis, unspecified (principal) | CPT/HCPCS: 36415; 82784 ==

== ENCOUNTER → 2023-08-02 | Outpatient (CLI) | payer MEDICARE, OTHER ==
--- NOTE | 2023-08-05 12:19 | BD ---
EXAMINATION TYPE: Axial Bone Density DATE OF EXAM: 08/02/2023 CLINICAL HISTORY: 78 years old Female. ICD-10 CODE: M89.9 DISORDER OF BONE, UNSPECIFIED Height: 60 Weight: 171 FRAX RISK QUESTIONS: Family History (Parent hip fracture): yes History of Fracture in Adulthood: yes Secondary Osteoporosis: yes 3. Menopause before 45: yes,37 RISK FACTORS HISTORY OF: Family History of Osteoporosis: yes Active: yes Diet low in dairy products/other sources of calcium: yes Postmenopausal woman: yes Lost more than 2 inches in height since high school: yes MEDICATIONS: Additional Medications: yes hbp meds, reflux, cholesterol, pain meds, bladder meds, ibs meds, EXAM MEASUREMENTS: Bone mineral densitometry was performed using the [employer] System. Bone mineral density as measured about the Lumbar spine is: ----- L1-L4(G/cm2): 1.326 T Score Values are as follows: ----- L1: 0.0 ----- L2: 1.2 ----- L3: 1.9 ----- L4: 1.4 ----- L1-L4: 1.2 Z Score Values are as follows: ----- L1: 1.4 ----- L2: 2.7 ----- L3: 3.4 ----- L4: 2.8 ----- L1-L4: 2.6 Bone mineral density has: Decreased -4.9% since study of: 09/14/2014 Bone mineral density about the R hip (g/cm2): 0.868 Bone mineral density about the L hip (g/cm2): 0.923 T Score values are as follows: -----R Neck: -1.6 -----L Neck: -1.6 -----R Total: -1.1 -----L Total: -0.7 Z Score values are as follows: -----R Neck: 0.3 -----L Neck: 0.3 -----R Total: 0.6 -----L Total: 1.0 Bone mineral density has: Decreased -13.4% since study of: 09/14/2014 FRAX%s: The graph provided illustrates a 19.4% chance for a major osteoporotic fx and a 4.3% chance f or the hips probability for fx in 10 years time. IMPRESSION: Osteopenia (T Score between -2.5 and -1). There is slightly increased risk of fracture and the patient may be considered for treatment. Re-Screen 2-5 years. NOTE: T-SCORE=SD OF THE YOUNG ADULT MEAN.
== END | disposition home or self-care (01) ==
LOC: RADBDWWP 15:58
PROVIDERS: ATTEND Family Medicine
DX: M85.89 Other specified disorders of bone density and structure, multiple sites (principal); Z78.0 Asymptomatic menopausal state
CPT/HCPCS: 77080

== ENCOUNTER → 2023-09-03 | Outpatient (CLI) | payer MEDICARE, OTHER ==
--- NOTE | 2023-09-03 13:38 | CT ---
EXAMINATION TYPE: CT iac wo con CT DLP: 150.0 mGycm, Automated exposure control for dose reduction was used. 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 COMPARISON: None. TECHNIQUE: Multiple thin axial images were obtained through the temporal bones and internal auditory canals. Additional coronal reformatted images were obtained. No IV contrast was utilized. CT Contrast: Contrast used: None. FINDINGS: Right Temporal Bone: External Ear: The external auditory canal is unremarkable, The tympanic membrane is present and unrem arkable. Middle Ear: The ossicles demonstrate a normal appearance. Prussak's space is clear and the scutum i s intact. There is no evidence of osseous erosion and the tegmen tympani is intact. Inner Ear: Cochlea, vestibule and semi circular canals are unremarkable. No evidence of carotid salina l dehiscence. Two and a half turns of the cochlea are identified. The vestibular aqueduct is not enl arged. Mastoid Air Cells: The mastoid air cells are clear. The tegmen mastoideum is intact. The aditus ad an trum is clear. Internal Auditory Canal: The internal auditory canal is unremarkable. Left Temporal Bone: External Ear: The external auditory canal is unremarkable, The tympanic membrane is present and unrem arkable. Middle Ear: The ossicles demonstrate a normal appearance. Prussak's space is clear and the scutum i s intact. There is no evidence of osseous erosion and the tegmen tympani is intact. Inner Ear: Cochlea, vestibule and semi circular canals are unremarkable. No evidence of carotid salina l dehiscence. There are atherosclerotic calcifications of the ICAs at the cavernous portions. Two an d a half turns of the cochlea are identified. The vestibular aqueduct is not enlarged. Mastoid Air Cells: The mastoid air cells are clear. The tegmen mastoideum is intact. The aditus ad an trum is clear. Internal Auditory Canal: The internal auditory canal is unremarkable. Other: Visualized orbits appear unremarkable. There has likely been lens replacement surgery bilatera lly. IMPRESSION: Unremarkable internal auditory canal study.
== END | disposition home or self-care (01) ==
LOC: RADCTMAIN 11:30
PROVIDERS: ATTEND Otolaryngology
DX: H93.19 Tinnitus, unspecified ear (principal); H91.90 Unspecified hearing loss, unspecified ear
CPT/HCPCS: 70480

== ENCOUNTER → 2024-03-30 | Outpatient (CLI) | payer MEDICARE, OTHER ==
--- NOTE | 2024-03-31 10:37 | MM ---
Reason for Exam: Screening (asymptomatic). Last screening mammogram was performed 12 month(s) ago. Patient History: Menarche at age 11. First Full-Term at age 17. Left ovary removed at age 37. Right ovary removed at age 37. Hysterectomy at age 37. Postmenopausal. Estrogen, from age 37 until age 52. Hormonal Contraceptives, from age 21 until age 22. Niece had breast cancer, age 42. Daughter had breast cancer, age 40. Risk Values: Queta 5 year model risk: 3.1%. NCI Lifetime model risk: 4.7%. Prior Study Comparison: 03/06/2021 Bilateral Screening Mammogram, [facility]. 03/07/2022 Bilateral MG 3D screening mammo w/cad, [facility]. 03/11/2023 Bilateral MG 3D screening mammo w/cad, [facility]. Tissue Density: The breasts are extremely dense, which lowers the sensitivity of mammography. Findings: Analyzed By CAD. Right breast: There is no suspicious group of microcalcifications or new suspicious mass. Benign-appearing calcifications right breast. Left breast: There is no suspicious group of microcalcifications or new suspicious mass. Benign-appearing calcifications left breast. Overall Assessment: Benign, BI-RAD 2 Management: Screening Mammogram of both breasts in [address] [facility] will attempt to contact patient to return for supplemental views and ultrasound if indicated. Patient should continue monthly self-breast exams. A clinical breast exam by your physician is recommended on an annual basis. This exam should not preclude additional follow-up of suspicious palpable abnormalities. Note on Queta scores and lifetime risk: 1. A Queta score greater than 3% is considered moderate risk. If this is the case, consider specialist referral to assess eligibility for a risk reducing agent. 2. If overall lifetime risk for the development of breast cancer is 20% or higher, the patient may qualify for future screening with alternating mammogram and breast MRI. Electronically signed and approved by: Chandler Titus DO
== END | disposition home or self-care (01) ==
LOC: RADMAMWWP 13:41
PROVIDERS: ATTEND Family Medicine
DX: Z12.31 Encounter for screening mammogram for malignant neoplasm of breast (principal); R92.343 Mammographic extreme density, bilateral breasts; Z78.0 Asymptomatic menopausal state; Z80.3 Family history of malignant neoplasm of breast
CPT/HCPCS: 77063; 77067

== ENCOUNTER 2024-11-13 12:16 | Emergency (ER) | payer MEDICARE, OTHER ==
--- NOTE | 2024-11-13 12:33 | ED ---
Chest Pain HPI - General Source: patient, RN notes reviewed Mode of arrival: ambulatory Limitations: no limitations <Donte Blum - Last Filed: 11/13/24 12:31> - General Source: patient, RN notes reviewed Limitations: no limitations <Finn Pino - Last Filed: 11/13/24 16:13> - General Chief Complaint: Chest Pain Stated Complaint: chest pain Time Seen by Provider: 11/13/24 12:28 - History of Present Illness Initial Comments: This is an 79-year-old female with history of COPD, PE, hypertension presenting with back pain x 3 days. Patient states pain is beginning to worsen, radiating to chest and traveling up and down spine. Endorses associated shortness of breath and pain that worsens with inhalation. Patient called to triage before further HPI could be obtained. (Donte Blum) Patient is an 79-year-old female present to the emergency department with concerns with back and chest discomfort. Onset of symptoms was a few days ago. Symptoms are worse with exertion as well as positions. Patient has some mild associated dyspnea only with deep breaths. No history of similar symptoms previously. No calf pain or leg swelling. No cough or fever. (Finn Pino) - Related Data Home Medications Medication Instructions Recorded Confirmed Ferrous Sulfate [Feosol] 325 mg PO DAILY 03/09/15 11/13/24 Multivit with Calcium,Iron,Min 1 tab PO DAILY 03/09/15 11/13/24 [Women's Daily Multivitamin] Pravastatin Sodium [Pravachol] 40 mg PO HS 03/09/15 11/13/24 atenoloL [Tenormin] 25 mg PO W/SUPPER 03/09/15 11/13/24 Meloxicam [Mobic] 15 mg PO DAILY 10/25/17 11/13/24 Melatonin 3 mg PO HS 08/07/18 11/13/24 Docusate [Colace] 200 mg PO HS 09/18/21 11/13/24 Famotidine [Pepcid] 40 mg PO HS 09/18/21 11/13/24 Linaclotide [Linzess] 72 mcg PO AC-BRKFST 09/18/21 11/13/24 Retinavite 1 tab PO BID 09/18/21 11/13/24 Bacillus Coagulans [Probiotic] 1 tab PO HS 11/13/24 11/13/24 Calcium Carbonate [Calcium] 600 mg PO DAILY 11/13/24 11/13/24 Nystatin/Triamcinolone Acet 1 applic TOPICAL BID PRN 11/13/24 11/13/24 [Nystatin-Triamcinolone Oint] Omeprazole [PriLOSEC] 40 mg PO DAILY 11/13/24 11/13/24 amLODIPine BESYLATE/BENAZEPRIL 1 cap PO BID-W/MEALS 11/13/24 11/13/24 [Lotrel 5-10 MG] Allergies Allergy/AdvReac Type Severity Reaction Status Date / Time cephalexin monohydrate Allergy membranous Verified 11/13/24 15:29 [From Keflex] colitis adhesive AdvReac skin Verified 11/13/24 15:29 blisters metronidazole [From Flagyl] AdvReac Nausea & Verified 11/13/24 15:29 Vomiting morphine AdvReac Hallucinations, Verified 11/13/24 15:29 N/V oxycodone HCl [From Percocet] AdvReac Hallucinations, Verified 11/13/24 15:29 N/V Review of Systems ROS Other: All systems not noted in ROS Statement are negative. <Donte Blum - Last Filed: 11/13/24 12:31> ROS Other: All systems not noted in ROS Statement are negative. Constitutional: Denies: fever, chills Eyes: Denies: eye pain ENT: Denies: ear pain Respiratory: Reports: as per HPI. Denies: cough Cardiovascular: Reports: as per HPI, chest pain Endocrine: Denies: fatigue Gastrointestinal: Denies: abdominal pain Musculoskeletal: Reports: as per HPI <Finn Pino - Last Filed: 11/13/24 16:13> ROS Statement: Those systems with pertinent positive or pertinent negative responses have been documented in the HPI. EKG Findings - EKG Results: EKG: interpreted by ERMD, sinus rhythm, normal axis, normal QRS, normal ST/T <Finn Pino - Last Filed: 11/13/24 16:13> Past Medical History Past Medical History: Asthma, COPD, Eye Disorder, Fibromyalgia, GERD/Reflux, GI Bleed, Hyperlipidemia, Hypertension, Osteoarthritis (OA), Pneumonia, Pulmonary Embolus (PE) Additional Past Medical History / Comment(s): Possible TIA, pulmonary embolism 1996/was on HRT, bilateral macular degeneration-R eye wet/L eye dry, bilateral eyes retinoschesis, difficulty with night vision, arthritis multiple joints, anemia, colon polyps-benign, lower GI bleed x 2 thought d/t hemorrhoids, IBS w/constipation, diverticulosis, hiatal hernia, kidney stones, UTIs, past hemorrhagic cystitis, cystocele/pessary, past L sided rib fractures, bronchitis January 2021 History of Any Multi-Drug Resistant Organisms: None Reported Past Surgical History: Adenoidectomy, Bladder Surgery, Heart Catheterization, Hysterectomy, Joint Replacement, Orthopedic Surgery, Tonsillectomy Additional Past Surgical History / Comment(s): Colonoscopies/benign polypectomy, bladder suspension, D&C, bilateral total knee replacements, cervical fusion with titanium plate, bilateral cataract removals/lens implants, R eye injections every 6 weeks, L retinal hole/patched. Past Anesthesia/Blood Transfusion Reactions: Motion Sickness, Postoperative Nausea & Vomiting (PONV) Additional Past Anesthesia/Blood Transfusion Reaction / Comment(s): Difficult IV start. Past Psychological History: No Psychological Hx Reported Smoking Status: Never smoker Past Alcohol Use History: None Reported Past Drug Use History: None Reported - Past Family History Daughter(s) Family Medical History: Cancer Additional Family Medical History / Comment(s): Breast cancer. Father Family Medical History: Pulmonary Embolus Additional Family Medical History / Comment(s): Father of a PE at the age of 82 yrs. Mother Family Medical History: Dementia, Eye Disorder, Hypertension Additional Family Medical History / Comment(s): Mother had severe arthritis, macular degeneration and glaucoma. She at the age of 92 yrs. <Donte Blum - Last Filed: 11/13/24 12:31> General Exam Limitations: no limitations <Donte Blum - Last Filed: 11/13/24 12:31> Limitations: no limitations General appearance: alert, in no apparent distress Head exam: Present: normocephalic Eye exam: Present: normal appearance Neck exam: Present: normal inspection Respiratory exam: Present: normal lung sounds bilaterally. Absent: chest wall tenderness Cardiovascular Exam: Present: regular rate, normal rhythm, normal heart sounds Expanded Peripheral pulses: 2+: Radial (R), Radial (L), Posterior Tibialis (R), Posterior Tibialis (L) GI/Abdominal exam: Present: soft. Absent: tenderness Extremities exam: Present: normal inspection. Absent: pedal edema, calf tenderness Neurological exam: Present: alert Psychiatric exam: Present: normal affect, normal mood Skin exam: Present: normal color <Finn Pino - Last Filed: 11/13/24 16:13> - General Exam Comments Initial Comments: Visual Physical Exam Vital signs reviewed General: Well-appearing, nontoxic, no acute distress. Head: Normocephalic, atraumatic Eyes: PERRLA, EOMI ENT: Airway patent Chest: Nonlabored breathing Skin: No visual rash, normal skin tone Neuro: Alert and oriented 3 Musculoskeletal: No gross abnormalities (Donte Blum) Course Vital Signs 11/13/24 12:25 Temperature 97.8 F Pulse Rate 75 Respiratory 18 Rate Blood Pressure 177/74 O2 Sat by Pulse 99 Oximetry Chest Pain MDM <Donte Blum - Last Filed: 11/13/24 12:31> <Finn Pino - Last Filed: 11/13/24 16:13> - MDM I completed the quick note portion of this chart signed CLEO Morales (Donte Blum) Was pt. sent in by a medical professional or institution ([place] [facility], HVAC SALES ENGINEER, urgent care, hospital, or senior living...) When possible be specific @ -Patient was sent from urgent care Did you speak to anyone other than the patient for history (EMS, parent, family, police, friend...)? What history was obtained from this source @ -No Did you review nursing and triage notes (agree or disagree)? Why? @ -I reviewed and agree with nursing and triage notes Were old charts reviewed (outside hosp., previous admission, EMS record, old EKG, old radiological studies, urgent care reports/EKG's, senior living records)? Report findings @ -No old charts were reviewed Differential Diagnosis (chest pain, altered mental status, abdominal pain women, abdominal pain men, vaginal bleeding, weakness, fever, dyspnea, syncope, headache, dizziness, GI bleed, back pain, seizure, CVA, palpatations, mental health, musculoskeletal)? @ -Differential Chest Pain: Stable Angina, Unstable Angina, STEMI, NSTEMI Aortic Dissection, Pneumothorax, Musculoskeletal, Esophageal Spasm GERD, Cholecystitis, Pancreatitis, Zoster, this is not meant to be an all-inclusive list. EKG interpreted by me (3pts min.). @ -As above X-rays interpreted by me (1pt min.). @ -Chest x-ray does not reveal acute abnormality CT interpreted by me (1pt min.). @ -CT scan of the chest does not reveal acute abnormality U/S interpreted by me (1pt. min.). @ -None done What testing was considered but not performed or refused? (CT, X-rays, U/S, labs)? Why? @ -None What meds were considered but not given or refused? Why? @ -None Did you discuss the management of the patient with other professionals (professionals i.e. Dr., PA, HVAC SALES ENGINEER, lab, RT, psych nurse, secondary social studies teacher, guest services representative, teacher, business services officer, case consultant)? Give summary @ -Case was discussed with Dr. Lorenzo with [facility] who will admit covering Dr. Lugo. Was smoking cessation discussed for >3mins.? @ -No Was critical care preformed (if so, how long)? @ -No Were there social determinants of health that impacted care today? How? (Homelessness, low income, unemployed, alcoholism, drug addiction, transportation, low edu. Level, literacy, decrease access to med. care, snf, rehab)? @ -No Was there de-escalation of care discussed even if they declined (Discuss DNR or withdrawal of care, Hospice)? DNR status @ -No What co-morbidities impacted this encounter? (DM, HTN, Smoking, COPD, CAD, Cancer, CVA, ARF, Chemo, Hep., AIDS, mental health diagnosis, sleep apnea, morbid obesity)? @ -None Was patient admitted / discharged? Hospital course, mention meds given and route, prescriptions, significant lab abnormalities, going to OR and other pertinent info. @ -Patient presents with chest discomfort that is worse with positions as well as exertion. Initial evaluation unremarkable. Patient will be admitted with cardiac consult. Admission orders written. Patient reevaluated and updated. Undiagnosed new problem with uncertain prognosis? @ -No Drug Therapy requiring intensive monitoring for toxicity (Heparin, Nitro, Insulin, Cardizem)? @ -No Were any procedures done? @ -No Diagnosis/symptom? @ -Chest pain Acute, or Chronic, or Acute on Chronic? @ -Acute Uncomplicated (without systemic symptoms) or Complicated (systemic symptoms)? @ -Default Side effects of treatment? @ -No Exacerbation, Progression, or Severe Exacerbation? @ -No Poses a threat to life or bodily function? How? (Chest pain, [place], [place], pneumonia, PE, COPD, DKA, ARF, appy, cholecystitis, CVA, Diverticulitis, Homicidal, Suicidal, threat to staff... and all critical care pts) @ -Threat to cardiac function (Finn Pino) Disposition <Donte Blum - Last Filed: 11/13/24 12:31> Is patient prescribed a controlled substance at d/c from ED?: No Time of Disposition: 16:13 <Finn Pino - Last Filed: 11/13/24 16:13> Clinical Impression: Chest pain Disposition: ADMITTED IP TO THIS HOSP Referrals: Gelacio Wetzel MD [Primary Care Provider] - 1-2 days
[2024-11-13 13:07] LABS: Basophils % (A) 0 %; Eosinophils # (A) 0.2 k/uL (0-0.7); Eosinophils % (A) 3 %; HCT 43.3 % (34.0-46.0); HGB 13.9 gm/dL (11.4-16.0); Lymphocytes % (A) 31 %; MCH 30.8 pg (25.0-35.0); MCV 96.1 fL (80.0-100.0); Mean Platelet Volume 9.5; Monocytes # (A) 0.3 k/uL (0-1.0); Monocytes % (A) 5 %; Neutrophils # (A) 3.7 k/uL (1.3-7.7); Neutrophils % (A) 57 %; Platelet Count 195 k/uL (150-450); RBC 4.51 m/uL (3.80-5.40); RDW 12.8 % (11.5-15.5); WBC 6.5 k/uL (3.8-10.6)
[2024-11-13 13:28] LABS: ALT 30 U/L (4-34); AST 39 U/L (14-36); African American GFR (CKD) 77 (>60 ml/min/1.73 sqM); Albumin 4.9 g/dL (3.5-5.0); Alkaline Phosphatase 83 U/L (38-126); Anion Gap 7 mmol/L; Blood Urea Nitrogen 23 mg/dL (7-17); Calcium 10.1 mg/dL (8.4-10.2); Carbon Dioxide 26 mmol/L (22-30); Chloride 105 mmol/L (98-107); Glucose 113 mg/dL (74-99); Non-African American GFR(CKD) 67 (>60 ml/min/1.73 sqM); Potassium 5.1 mmol/L (3.5-5.1); Sodium 138 mmol/L (137-145); Total Bilirubin 0.5 mg/dL (0.2-1.3); Total Protein 7.6 g/dL (6.3-8.2)
[2024-11-13 13:33] LABS: Prothrombin Time 10.6 sec (10.0-12.5)
[2024-11-13 13:37] LABS: Partial Thromboplastin Time 19.6 sec (22.0-30.0)
[2024-11-13 13:55] LABS: Influenza A Not Detected (Not Detectd); Influenza B Not Detected (Not Detectd); RSV Not Detected (Not Detectd)
--- NOTE | 2024-11-13 14:57 | XR ---
EXAMINATION TYPE: XR chest 2V DATE OF EXAM: 11/13/2024 2:45 PM COMPARISON: Chest radiographs from 03/05/2021 CLINICAL INDICATION: Female, 79 years old with history of Chest Pain; [facility] TECHNIQUE: XR chest 2V Frontal and lateral views of the chest. FINDINGS: Lungs/Pleura: There is flattening of the diaphragm with increased lucency of the lungs. No evidence o f pneumothorax, pleural effusion or focal consolidation. Pulmonary vascularity: Unremarkable. Heart/mediastinum: Cardiomediastinal silhouette is unremarkable. Musculoskeletal: No acute osseous pathology. There is fixation hardware in the lower cervical spine. IMPRESSION: 1. No acute cardiopulmonary disease process. 2. COPD changes. [facility], , 11/13/2024 2:55 PM
--- NOTE | 2024-11-13 14:58 | CT ---
EXAMINATION TYPE: CT angio chest CT DLP: 624.4 mGycm, Automated exposure control for dose reduction was used. DATE OF EXAM: 11/13/2024 2:50 PM COMPARISON: Chest radiograph from same day. CT chest 09/16/2018, CTA chest 06/19/2018 CLINICAL INDICATION:Female, 79 years old with history of cp; Chest pain. TECHNIQUE/CONTRAST: CTA scan of the thorax is performed without and with IV Contrast, patient injected with 100ml mL of I sovue 370, pulmonary embolism protocol. MIP images are created and reviewed. FINDINGS: Pulmonary Artery: There is no evidence for a filling defect within the pulmonary vasculature to sugge st acute pulmonary embolism. The pulmonary artery is of normal size. Reflux of contrast into the IV C. Lungs/Pleura: No evidence of focal consolidation, pleural effusion or pneumothorax. No suspicious pul monary nodule or mass. Right upper lobe punctate calcified granuloma. Airway: Large airways are patent. Heart: Size within normal limits.No pericardial effusion Mild coronary artery calcifications present. Vasculature: No evidence of aortic aneurysm. Tortuosity descending thoracic aorta. Mild atherosclerot ic calcification of the aorta and its branches. Mediastinum: No gross evidence of adenopathy. Musculoskeletal: No acute osseous abnormalities. Partial visualization of anterior cervical fusion domínguez rdware. Moderate multilevel degenerative disc disease. S-shaped scoliotic curvature of the visualized thoracolumbar spine. Soft Tissues: Unremarkable. Lower neck: Subcentimeter hypodense nodules within the thyroid gland with macrocalcification within t he left thyroid lobe. A couple of surgical clips adjacent to the right thyroid lobe.. Upper Abdomen: Moderate size hiatal hernia with partial intrathoracic stomach. Left hepatic lobe 2.5 cm cyst.. IMPRESSION: 1. No evidence of pulmonary embolism or acute thoracic process. 2. Moderate-sized hiatal hernia with partial intrathoracic stomach redemonstrated. [facility], , 11/13/2024 2:56 PM
[2024-11-13] MEDS ORDERED: NITROGLYCERIN SL TABS 0.4 MG TAB SUBLINGUAL PRN (16:13)
[2024-11-13] MEDS: ASPIRIN 81 MG PO STA (16:30)
--- NOTE | 2024-11-13 16:34 | P.CONS ---
History of Present Illness - Reason for Consult Consult date: 11/13/24 - History of Present Illness Patient is a 79-year-old female with past medical history of HTN, dyslipidemia, history of PE 1997 reportedly was not confirmed by imaging,, GERD, mild intermittent asthma, history of neck surgery, who presented to the ER for back pain started 3 days ago, patient noted mid thoracic back pain while sitting in her recliner, was hoping for it to go away, however, today she noted the pain started moving around her chest in the middle of her chest, again, started while sitting in the recliner, usually when she stands up and walk around a goal weight. She did report some exertional shortness of breath that sometimes happens, nothing out of proportion this time. She initially was mentioning that the pain was getting worse with deep inspiration, however, at the time of my examination, patient was symptoms free, she was able to speak full sentences without any conversational dyspnea, she was able to take a very deep breath without any pain, physical exam revealed mid thoracic point tenderness, lumbar spine scoliosis. Patient states that she feels back to her baseline, she would like to be discharged if possible. We did discuss all her blood work, imaging, EKG results that did not reveal any acute abnormality, we also discussed her CTA findings including multilevel degenerative disc disease, scoliosis. Spoke with the ER provider, plan to repeat troponin, if negative patient can be discharged with follow-up with her primary care physician and her intensive care anaesthetist Dr. Nowak. So far no evidence of acute coronary event, patient's symptoms are most likely related to her multilevel degenerative disc disease. 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 Denies associated fevers, chills, cough, lower extremity swelling, calf t enderness On arrival afebrile, hypertensive 177/74, SpO2 99% on room air. Lab work significant for unremarkable CBC, D-dimer elevated at 7.16, sodium, potassium, bicarb, creatinine normal, glucose 113, AST mildly elevated 39, ALT normal, troponin negative, Cepheid negative. CTA chest showed no evidence of PE or acute thoracic process, moderate-sized hiatal hernia with partial intrathoracic stomach redemonstrated. No acute osseous abnormalities, partial visualization of anterior cervical fusion hardware, moderate multilevel degenerative disc disease, scoliotic thoracolumbar spine chest x-ray with no acute process EKG showed no acute ischemia, normal sinus rhythm, QTc 393, interpreted indepen dently Pertinent positives and negatives as discussed in HPI, a complete review of systems was performed and all other systems are negative. Patient seen and examined at bedside. Vital signs reviewed General: nontoxic, no distress, appears at stated age Derm: warm, dry Head: atraumatic, normocephalic, symmetric Eyes: EOMI, no lid lag, anicteric sclera, pupils equal round reactive to light ENT: Nose and ears atraumatic Neck: No thyromegaly, supple Mouth: no lip lesion, mucus membranes moist Cardiovascular: S1S2 reg, no murmur, no edema Lungs: clear to auscultation bilateral, no rhonchi, no rales, no wheeze, no accessory muscle use Abdominal: soft, nontender to palpation, no guarding, no appreciable organomegaly Ext: no gross muscle atrophy, muscle strength muscle strength 5 out of 5 in all 4 extremities, no contractures Neuro: CN II-XII grossly intact Psych: Alert, oriented, appropriate affect Assessment/Plan: Acute back pain with mid thoracic point tenderness moderate multilevel degenerative disc disease, scoliotic thoracolumbar spine Atypical chest pain, resolved Elevated D-dimer -Continue home Lotrel 5-10 twice daily, atenolol 25 daily, Pepcid 40 mg nightly, Prilosec 40 daily, atorvastatin 40 nightly -Repeat troponin level -If negative, can be discharged and follow-up with PCP and intensive care anaesthetist -Symptomatic management with lidocaine patch, Tylenol as needed Hypertension GERD Hyperlipidemia -Continue home Lotrel 5-10 twice daily, atenolol 25 daily, Pepcid 40 mg nightly, Prilosec 40 daily, atorvastatin 40 nightly Iron deficiency: Continue home ferrous sulfate 325 daily Chronic constipation: Continue home Colace 20 mg nightly Past Medical History Past Medical History: Asthma, COPD, Eye Disorder, Fibromyalgia, GERD/Reflux, GI Bleed, Hyperlipidemia, Hypertension, Osteoarthritis (OA), Pneumonia, Pulmonary Embolus (PE) Additional Past Medical History / Comment(s): Possible TIA, pulmonary embolism 1996/was on HRT, bilateral macular degeneration-R eye wet/L eye dry, bilateral eyes retinoschesis, difficulty with night vision, arthritis multiple joints, anemia, colon polyps-benign, lower GI bleed x 2 thought d/t hemorrhoids, IBS w/constipation, diverticulosis, hiatal hernia, kidney stones, UTIs, past hemorrhagic cystitis, cystocele/pessary, past L sided rib fractures, bronchitis January 2021 History of Any Multi-Drug Resistant Organisms: None Reported Past Surgical History: Adenoidectomy, Bladder Surgery, Heart Catheterization, Hysterectomy, Joint Replacement, Orthopedic Surgery, Tonsillectomy Additional Past Surgical History / Comment(s): Colonoscopies/benign polypectomy, bladder suspension, D&C, bilateral total knee replacements, cervical fusion with titanium plate, bilateral cataract removals/lens implants, R eye injections every 6 weeks, L retinal hole/patched. Past Anesthesia/Blood Transfusion Reactions: Motion Sickness, Postoperative Nausea & Vomiting (PONV) Additional Past Anesthesia/Blood Transfusion Reaction / Comm: Difficult IV start. Past Psychological History: No Psychological Hx Reported Smoking Status: Never smoker Past Alcohol Use History: None Reported Past Drug Use History: None Reported - Past Family History Daughter(s) Family Medical History: Cancer Additional Family Medical History / Comment(s): Breast cancer. Father Family Medical History: Pulmonary Embolus Additional Family Medical History / Comment(s): Father of a PE at the age of 82 yrs. Mother Family Medical History: Dementia, Eye Disorder, Hypertension Additional Family Medical History / Comment(s): Mother had severe arthritis, macular degeneration and glaucoma. She at the age of 92 yrs. Medications and Allergies Home Medications Medication Instructions Recorded Confirmed Type Ferrous Sulfate [Feosol] 325 mg PO DAILY 03/09/15 11/13/24 History Multivit with Calcium,Iron,Min 1 tab PO DAILY 03/09/15 11/13/24 History [Women's Daily Multivitamin] Pravastatin Sodium [Pravachol] 40 mg PO HS 03/09/15 11/13/24 History atenoloL [Tenormin] 25 mg PO W/SUPPER 03/09/15 11/13/24 History Meloxicam [Mobic] 15 mg PO DAILY 10/25/17 11/13/24 History Melatonin 3 mg PO HS 08/07/18 11/13/24 History Docusate [Colace] 200 mg PO HS 09/18/21 11/13/24 History Famotidine [Pepcid] 40 mg PO HS 09/18/21 11/13/24 History Linaclotide [Linzess] 72 mcg PO AC-BRKFST 09/18/21 11/13/24 History Retinavite 1 tab PO BID 09/18/21 11/13/24 History Bacillus Coagulans [Probiotic] 1 tab PO HS 11/13/24 11/13/24 History Calcium Carbonate [Calcium] 600 mg PO DAILY 11/13/24 11/13/24 History Nystatin/Triamcinolone Acet 1 applic TOPICAL BID PRN 11/13/24 11/13/24 History [Nystatin-Triamcinolone Oint] Omeprazole [PriLOSEC] 40 mg PO DAILY 11/13/24 11/13/24 History amLODIPine BESYLATE/BENAZEPRIL 1 cap PO BID-W/MEALS 11/13/24 11/13/24 History [Lotrel 5-10 MG] Allergies Allergy/AdvReac Type Severity Reaction Status Date / Time cephalexin monohydrate Allergy membranous Verified 11/13/24 15:29 [From Keflex] colitis adhesive AdvReac skin Verified 11/13/24 15:29 blisters metronidazole [From Flagyl] AdvReac Nausea & Verified 11/13/24 15:29 Vomiting morphine AdvReac Hallucinations, Verified 11/13/24 15:29 N/V oxycodone HCl [From Percocet] AdvReac Hallucinations, Verified 11/13/24 15:29 N/V Physical Exam Vitals: Vital Signs Temp Pulse Resp BP Pulse Ox 11/13/24 12:25 97.8 F 75 18 177/74 99 Intake and Output 11/13/24 11/13/24 11/13/24 06:59 14:59 22:59 Other: Weight 73.482 kg Results CBC & Chem 7: 11/13/24 12:44 11/13/24 12:44 Labs: Abnormal Lab Results - Last 24 Hours (Table) 11/13/24 11/13/24 Range/Units 12:44 12:44 APTT 19.6 L (22.0-30.0) sec D-Dimer 7.16 H (<0.60) mg/L FEU BUN 23 H (7-17) mg/dL Glucose 113 H (74-99) mg/dL AST 39 H (14-36) U/L
[2024-11-13] MEDS ORDERED: LIDOCAINE 4% PATCH TOPICAL SCH (16:45)
[2024-11-13] MEDS ORDERED: NON FORMULARY DRUG (Amlodipine Besylate/Benazepril [Lotrel 5-10 Mg] 1 EACH Capsule) PO SCH (17:30)
[2024-11-13] MEDS ORDERED: amLODIPine 10 MG TAB PO SCH (17:30)
[2024-11-13] MEDS ORDERED: lisinopriL 20 MG TAB PO SCH (17:30)
[2024-11-13] MEDS ORDERED: atenoloL 25 MG TAB PO SCH (17:30)
[2024-11-13] MEDS ORDERED: NITROGLYCERIN OINT 1 INCH/GM PACKET TOPICAL SCH (18:00)
--- NOTE | 2024-11-13 18:22 | ED ---
Medical Decision Making - Medical Decision Making Patient seen by Dr. Duncan's and Dr. Lorenzo recommended considering discharge. Patient reevaluated and wants to be discharged. Patient does not want to stay. Patient was agreeable to repeating troponin. Repeat troponin is unremarkable. Patient again reevaluated and symptom-free and again requesting discharge. Patient is updated on results. Patient is made aware of limitations of testing in the emergency department. 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 - Lab Data Result diagrams: 11/13/24 12:44 11/13/24 12:44 Lab Results 11/13/24 11/13/24 11/13/24 Range/Units 12:44 12:44 12:44 WBC 6.5 (3.8-10.6) k/uL RBC 4.51 (3.80-5.40) m/uL Hgb 13.9 (11.4-16.0) gm/dL Hct 43.3 (34.0-46.0) % MCV 96.1 (80.0-100.0) fL MCH 30.8 (25.0-35.0) pg MCHC 32.0 (31.0-37.0) g/dL RDW 12.8 (11.5-15.5) % Plt Count 195 (150-450) k/uL MPV 9.5 Neutrophils % 57 % Lymphocytes % 31 % Monocytes % 5 % Eosinophils % 3 % Basophils % 0 % Neutrophils # 3.7 (1.3-7.7) k/uL Lymphocytes # 2.0 (1.0-4.8) k/uL Monocytes # 0.3 (0-1.0) k/uL Eosinophils # 0.2 (0-0.7) k/uL Basophils # 0.0 (0-0.2) k/uL PT 10.6 (10.0-12.5) sec INR 1.0 (<1.2) APTT 19.6 L (22.0-30.0) sec D-Dimer 7.16 H (<0.60) mg/L FEU Sodium 138 (137-145) mmol/L Potassium 5.1 (3.5-5.1) mmol/L Chloride 105 (98-107) mmol/L Carbon Dioxide 26 (22-30) mmol/L Anion Gap 7 mmol/L BUN 23 H (7-17) mg/dL Creatinine 0.83 (0.52-1.04) mg/dL Est GFR (CKD-EPI)AfAm 77 (>60 ml/min/1.73 sqM) Est GFR (CKD-EPI)NonAf 67 (>60 ml/min/1.73 sqM) Glucose 113 H (74-99) mg/dL Calcium 10.1 (8.4-10.2) mg/dL Magnesium 2.0 (1.6-2.3) mg/dL Total Bilirubin 0.5 (0.2-1.3) mg/dL AST 39 H (14-36) U/L ALT 30 (4-34) U/L Alkaline Phosphatase 83 (38-126) U/L Troponin I (0.000-0.034) ng/mL Total Protein 7.6 (6.3-8.2) g/dL Albumin 4.9 (3.5-5.0) g/dL Influenza Type A (PCR) (Not Detectd) Influenza Type B (PCR) (Not Detectd) RSV (PCR) (Not Detectd) SARS-CoV-2 (PCR) (Not Detectd) 11/13/24 11/13/24 11/13/24 Range/Units 12:44 13:03 16:30 WBC (3.8-10.6) k/uL RBC (3.80-5.40) m/uL Hgb (11.4-16.0) gm/dL Hct (34.0-46.0) % MCV (80.0-100.0) fL MCH (25.0-35.0) pg MCHC (31.0-37.0) g/dL RDW (11.5-15.5) % Plt Count (150-450) k/uL MPV Neutrophils % % Lymphocytes % % Monocytes % % Eosinophils % % Basophils % % Neutrophils # (1.3-7.7) k/uL Lymphocytes # (1.0-4.8) k/uL Monocytes # (0-1.0) k/uL Eosinophils # (0-0.7) k/uL Basophils # (0-0.2) k/uL PT (10.0-12.5) sec INR (<1.2) APTT (22.0-30.0) sec D-Dimer (<0.60) mg/L FEU Sodium (137-145) mmol/L Potassium (3.5-5.1) mmol/L Chloride (98-107) mmol/L Carbon Dioxide (22-30) mmol/L Anion Gap mmol/L BUN (7-17) mg/dL Creatinine (0.52-1.04) mg/dL Est GFR (CKD-EPI)AfAm (>60 ml/min/1.73 sqM) Est GFR (CKD-EPI)NonAf (>60 ml/min/1.73 sqM) Glucose (74-99) mg/dL Calcium (8.4-10.2) mg/dL Magnesium (1.6-2.3) mg/dL Total Bilirubin (0.2-1.3) mg/dL AST (14-36) U/L ALT (4-34) U/L Alkaline Phosphatase (38-126) U/L Troponin I <0.012 <0.012 (0.000-0.034) ng/mL Total Protein (6.3-8.2) g/dL Albumin (3.5-5.0) g/dL Influenza Type A (PCR) Not Detected (Not Detectd) Influenza Type B (PCR) Not Detected (Not Detectd) RSV (PCR) Not Detected (Not Detectd) SARS-CoV-2 (PCR) Not Detected (Not Detectd) Disposition Clinical Impression: Chest pain Disposition: HOME SELF-CARE Instructions (If sedation given, give patient instructions): Chest Pain (ED) Additional Instructions: Please 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 Return for increased pain, difficulty breathing, worsening or changing symptoms or any other concerns. Is patient prescribed a controlled substance at d/c from ED?: No Referrals: Gelacio Wetzel MD [Primary Care Provider] - 1-2 days Aroldo Nowak MD [STAFF PHYSICIAN] - 1 Week Time of Disposition: 18:21
[2024-11-13 18:30] VITALS: BP 170/78; PULSE 69; RESP 16; TEMP 98.3
[2024-11-13] MEDS ORDERED: ATORVASTATIN 40 MG TAB PO SCH (21:00)
[2024-11-13] MEDS ORDERED: FAMOTIDINE 20 MG TAB PO SCH (21:00)
[2024-11-13] MEDS ORDERED: MELATONIN 3 MG TABLET PO SCH (21:00)
[2024-11-13] MEDS ORDERED: PRAVASTATIN SODIUM 40 MG TAB PO SCH (21:00)
[2024-11-13] MEDS ORDERED: DOCUSATE 100 MG CAP PO SCH (21:00)
[2024-11-14] MEDS ORDERED: LINACLOTIDE 72 MCG PO SCH (07:30)
[2024-11-14] MEDS ORDERED: PANTOPRAZOLE 40 MG TABLET PO SCH (09:00)
[2024-11-14] MEDS ORDERED: CALCIUM CARBONATE 500 MG CHEWABLE PO SCH (09:00)
[2024-11-14] MEDS ORDERED: FERROUS SULFATE 325 MG TAB PO SCH (09:00)
[2024-11-14] MEDS ORDERED: ASPIRIN 325 MG TAB PO SCH (09:00)
[2024-11-14] MEDS ORDERED: MULTIVITAMINS, THERA 1 EACH TAB PO SCH (09:00)
== END 2024-11-13 18:36 | disposition home or self-care (01) ==
LOC: EC 12:16
DX: R07.9 Chest pain, unspecified (principal); Z88.1 Allergy status to other antibiotic agents; Z91.048 Other nonmedicinal substance allergy status; Z88.5 Allergy status to narcotic agent; Z88.8 Allergy status to other drugs, medicaments and biological substances
CPT/HCPCS: 99285; 36415; 93005; 85379; 80053; 83735; 84484; 85025; 85610; 85730; 87636; 71046; 71275; Q9967

== ENCOUNTER 2025-02-27 10:10 | Emergency (ER) | payer MEDICARE, OTHER ==
[2025-02-27 10:16] VITALS: RESP 18; TEMP 98.7
--- NOTE | 2025-02-27 10:50 | ED ---
Recheck HPI - General Chief Complaint: Recheck/Abnormal Lab/Rx Stated Complaint: SOB Time Seen by Provider: 02/27/25 10:50 Source: patient, RN notes reviewed Mode of arrival: ambulatory Limitations: no limitations - History of Present Illness Initial Comments: 79-year-old female with a past medical history significant of COPD and asthma presenting to the ER for evaluation of cough. Patient reports over the past 3 to 4 days she has been experiencing a consistent cough. She states a coworker at work had similar symptoms last week and she believes she may have caught something from her coworker. Patient was seen at urgent care and diagnosed with bronchitis. Patient was started on doxycycline and steroids. Patient reports last night she was unable to sleep given persistent coughing. Patient reports she has tried at home nebulizers without relief. Patient reports mild sore chest and shortness of breath during coughing attacks. She denies any fevers, chills, nausea, vomiting, abdominal pain, constipation/diarrhea, urinary compl aints or peripheral edema. - Related Data Home Medications Medication Instructions Recorded Confirmed Ferrous Sulfate [Feosol] 325 mg PO DAILY 03/09/15 11/13/24 Multivit with Calcium,Iron,Min 1 tab PO DAILY 03/09/15 11/13/24 [Women's Daily Multivitamin] Pravastatin Sodium [Pravachol] 40 mg PO HS 03/09/15 11/13/24 atenoloL [Tenormin] 25 mg PO W/SUPPER 03/09/15 11/13/24 Meloxicam [Mobic] 15 mg PO DAILY 10/25/17 11/13/24 Melatonin 3 mg PO HS 08/07/18 11/13/24 Docusate [Colace] 200 mg PO HS 09/18/21 11/13/24 Famotidine [Pepcid] 40 mg PO HS 09/18/21 11/13/24 Linaclotide [Linzess] 72 mcg PO AC-BRKFST 09/18/21 11/13/24 Retinavite 1 tab PO BID 09/18/21 11/13/24 Bacillus Coagulans [Probiotic] 1 tab PO HS 11/13/24 11/13/24 Calcium Carbonate [Calcium] 600 mg PO DAILY 11/13/24 11/13/24 Nystatin/Triamcinolone Acet 1 applic TOPICAL BID PRN 11/13/24 11/13/24 [Nystatin-Triamcinolone Oint] Omeprazole [PriLOSEC] 40 mg PO DAILY 11/13/24 11/13/24 amLODIPine BESYLATE/BENAZEPRIL 1 cap PO BID-W/MEALS 11/13/24 11/13/24 [Lotrel 5-10 MG] Previous Rx's Medication Instructions Recorded Albuterol Nebulized [Ventolin 2.5 mg INHALATION Q4H PRN #75 ml 02/27/25 Nebulized] Benzonatate [Tessalon Perles] 100 mg PO TID PRN #15 capsule 02/27/25 Allergies Allergy/AdvReac Type Severity Reaction Status Date / Time cephalexin monohydrate Allergy membranous Verified 02/27/25 10:16 [From Keflex] colitis adhesive AdvReac skin Verified 02/27/25 10:16 blisters metronidazole [From Flagyl] AdvReac Nausea & Verified 02/27/25 10:16 Vomiting morphine AdvReac Hallucinations, Verified 02/27/25 10:16 N/V oxycodone HCl [From Percocet] AdvReac Hallucinations, Verified 02/27/25 10:16 N/V Review of Systems ROS Statement: Those systems with pertinent positive or pertinent negative responses have been documented in the HPI. ROS Other: All systems not noted in ROS Statement are negative. Past Medical History Past Medical History: Asthma, COPD, Eye Disorder, Fibromyalgia, GERD/Reflux, GI Bleed, Hyperlipidemia, Hypertension, Osteoarthritis (OA), Pneumonia, Pulmonary Embolus (PE) Additional Past Medical History / Comment(s): Possible TIA, pulmonary embolism 1996/was on HRT, bilateral macular degeneration-R eye wet/L eye dry, bilateral eyes retinoschesis, difficulty with night vision, arthritis multiple joints, anemia, colon polyps-benign, lower GI bleed x 2 thought d/t hemorrhoids, IBS w/constipation, diverticulosis, hiatal hernia, kidney stones, UTIs, past hemorrhagic cystitis, cystocele/pessary, past L sided rib fractures, bronchitis January 2021 History of Any Multi-Drug Resistant Organisms: None Reported Past Surgical History: Adenoidectomy, Bladder Surgery, Heart Catheterization, Hysterectomy, Joint Replacement, Orthopedic Surgery, Tonsillectomy Additional Past Surgical History / Comment(s): Colonoscopies/benign polypectomy, bladder suspension, D&C, bilateral total knee replacements, cervical fusion with titanium plate, bilateral cataract removals/lens implants, R eye injections every 6 weeks, L retinal hole/patched. Past Anesthesia/Blood Transfusion Reactions: Motion Sickness, Postoperative Nausea & Vomiting (PONV) Additional Past Anesthesia/Blood Transfusion Reaction / Comment(s): Difficult IV start. Past Psychological History: No Psychological Hx Reported Smoking Status: Never smoker Past Alcohol Use History: None Reported Past Drug Use History: None Reported - Past Family History Daughter(s) Family Medical History: Cancer Additional Family Medical History / Comment(s): Breast cancer. Father Family Medical History: Pulmonary Embolus Additional Family Medical History / Comment(s): Father of a PE at the age of 82 yrs. Mother Family Medical History: Dementia, Eye Disorder, Hypertension Additional Family Medical History / Comment(s): Mother had severe arthritis, macular degeneration and glaucoma. She at the age of 92 yrs. General Exam Limitations: no limitations General appearance: alert, in no apparent distress ENT exam: Present: normal exam, mucous membranes moist (Mild erythema oropharynx) Neck exam: Present: normal inspection. Absent: tenderness, meningismus, lymphadenopathy Respiratory exam: Present: wheezes (Mild throughout all lung [place]ch[place]) Cardiovascular Exam: Present: regular rate, normal rhythm, normal heart sounds. Absent: systolic murmur, diastolic murmur, rubs, gallop, clicks Extremities exam: Present: normal inspection, full ROM, normal capillary refill, pedal edema (Nonpitting). Absent: tenderness, joint swelling, calf tenderness Neurological exam: Present: alert, oriented X3, CN II-XII intact Skin exam: Present: warm, dry, intact, normal color. Absent: rash Course Vital Signs 02/27/25 02/27/25 02/27/25 10:13 11:13 11:24 Temperature 98.7 F Pulse Rate 88 62 70 Respiratory 18 Rate Blood Pressure 167/72 O2 Sat by Pulse 97 Oximetry 02/27/25 02/27/25 02/27/25 13:36 13:50 14:27 Temperature Pulse Rate 72 72 82 Respiratory 18 Rate Blood Pressure 125/56 O2 Sat by Pulse 97 Oximetry Medical Decision Making - Medical Decision Making Was pt. sent in by a medical professional or institution (, PA, INDUSTRIAL SPRAYPAINTER, urgent care, hospital, or senior care...) When possible be specific @ -No Did you speak to anyone other than the patient for history (EMS, parent, family, police, friend...)? What history was obtained from this source @ -No Did you review nursing and triage notes (agree or disagree)? Why? @ -I reviewed and agree with nursing and triage notes Were old charts reviewed (outside hosp., previous admission, EMS record, old EKG, old radiological studies, urgent care reports/EKG's, senior care records)? Report findings @ -No old charts were reviewed Differential Diagnosis (chest pain, altered mental status, abdominal pain women, abdominal pain men, vaginal bleeding, weakness, fever, dyspnea, syncope, headache, dizziness, GI bleed, back pain, seizure, CVA, palpatations, mental health, musculoskeletal)? @ -COVID, RSV, influenza, viral sinusitis, pneumonia, strep pharyngitis, this list is not meant to be all-inclusive EKG interpreted by me (3pts min.). @ -As above X-rays interpreted by me (1pt min.). @ -CXR interpreted me negative for focal consolidations or pneumothorax. CT interpreted by me (1pt min.). @ -None done U/S interpreted by me (1pt. min.). @ -None done What testing was considered but not performed or refused? (CT, X-rays, U/S, labs)? Why? @ -None What meds were considered but not given or refused? Why? @ -None Did you discuss the management of the patient with other professionals (professionals i.e. , PA, INDUSTRIAL SPRAYPAINTER, lab, RT, psych nurse, social services coordinator, independent living instructor, teacher, chief growth officer, human services case manager)? Give summary @ -No Was smoking cessation discussed for >3mins.? @ -No Was critical care preformed (if so, how long)? @ -No Were there social determinants of health that impacted care today? How? (Homelessness, low income, unemployed, alcoholism, drug addiction, transportation, low edu. Level, literacy, decrease access to med. care, prison, rehab)? @ -No Was there de-escalation of care discussed even if they declined (Discuss DNR or withdrawal of care, Hospice)? DNR status @ -No What co-morbidities impacted this encounter? (DM, HTN, Smoking, COPD, CAD, Cancer, CVA, ARF, Chemo, Hep., AIDS, mental health diagnosis, sleep apnea, morbid obesity)? @ -COPD, asthma, advanced age Was patient admitted / discharged? Hospital course, mention meds given and route, prescriptions, significant lab abnormalities, going to OR and other pertinent info. @ -Discharge. 79-year-old female presented the ER for evaluation of cough. Vital signs stable. Patient no signs of acute respiratory distress upon my evaluation. Exam remarkable for mild wheezing noted throughout all lung mench[place]. Laboratory studies obtained unimpressive. Viral swabs negative. BNP 1270. Chest x-ray negative for acute process. COPD changes present. Patient provided with DuoNeb nebulizer treatment with improvement of symptoms. Patient will be prescribed Tessalon Perles and nebulized albuterol at discharge. Advised to follow-up closely with PCP. Strict return parameters discussed. Patient discharged in stable condition. Patient verbally expressed understanding agreement care plan. Case discussed with ED attending, Dr. Lino. Undiagnosed new problem with uncertain prognosis? @ -No Drug Therapy requiring intensive monitoring for toxicity (Heparin, Nitro, Insulin, Cardizem)? @ -No Were any procedures done? @ -No Diagnosis/symptom? @ -Viral illness/cough Acute, or Chronic, or Acute on Chronic? @ -Acute Uncomplicated (without systemic symptoms) or Complicated (systemic symptoms)? @ -Uncomplicated Side effects of treatment? @ -No Exacerbation, Progression, or Severe Exacerbation? @ -No Poses a threat to life or bodily function? How? (Chest pain, [place], [place], pneumonia, PE, COPD, DKA, ARF, appy, cholecystitis, CVA, Diverticulitis, Homicidal, Suicidal, threat to staff... and all critical care pts) @ -No - Lab Data Result diagrams: 02/27/25 10:34 02/27/25 10:34 Lab Results 02/27/25 02/27/25 02/27/25 Range/Units 10:34 10:34 10:34 WBC 8.37 (4.50-10.00) 10*3/uL RBC 3.98 L (4.10-5.20) 10*6/uL Hgb 12.8 (12.0-15.0) g/dL Hct 37.9 (37.2-46.3) % MCV 95.2 (80.0-97.0) fL MCH 32.2 H (27.0-32.0) pg MCHC 33.8 (32.0-37.0) g/dL Plt Count 187 (140-440) 10*3/uL MPV 10.8 (9.5-12.2) fL Immature Gran % (Auto) 1.0 % Neutrophils % 85.8 % Lymphocytes % 9.6 % Monocytes % 2.7 % Eosinophils % 0.5 % Basophils % 0.4 % Immature Gran # 0.08 H (0.00-0.04) 10*3/uL Neutrophils # 7.19 (1.80-7.70) 10*3/uL Lymphocytes # 0.80 L (0.90-5.00) 10*3/uL Monocytes # 0.23 (0.20-1.00) 10*3/uL Eosinophils # 0.04 (0.04-0.35) 10*3/uL Basophils # 0.03 (0.00-0.10) 10*3/uL Sodium 136 L (137-145) mmol/L Potassium 4.4 (3.5-5.1) mmol/L Chloride 105 (98-107) mmol/L Carbon Dioxide 20 L (22-30) mmol/L Anion Gap 11 mmol/L BUN 24 H (7-17) mg/dL Creatinine 0.76 (0.52-1.04) mg/dL Est GFR (CKD-EPI)AfAm 86 (>60 ml/min/1.73 sqM) Est GFR (CKD-EPI)NonAf 74 (>60 ml/min/1.73 sqM) Glucose 159 H (74-99) mg/dL Calcium 9.9 (8.4-10.2) mg/dL Total Bilirubin 0.5 (0.2-1.3) mg/dL AST 32 (14-36) U/L ALT 28 (4-34) U/L Alkaline Phosphatase 102 (38-126) U/L NT-Pro-B Natriuret Pep pg/mL Total Protein 7.1 (6.3-8.2) g/dL Albumin 4.6 (3.5-5.0) g/dL Influenza Type A (PCR) Not Detected (Not Detectd) Influenza Type B (PCR) Not Detected (Not Detectd) RSV (PCR) Not Detected (Not Detectd) SARS-CoV-2 (PCR) Not Detected (Not Detectd) 02/27/25 Range/Units 10:34 WBC (4.50-10.00) 10*3/uL RBC (4.10-5.20) 10*6/uL Hgb (12.0-15.0) g/dL Hct (37.2-46.3) % MCV (80.0-97.0) fL MCH (27.0-32.0) pg MCHC (32.0-37.0) g/dL Plt Count (140-440) 10*3/uL MPV (9.5-12.2) fL Immature Gran % (Auto) % Neutrophils % % Lymphocytes % % Monocytes % % Eosinophils % % Basophils % % Immature Gran # (0.00-0.04) 10*3/uL Neutrophils # (1.80-7.70) 10*3/uL Lymphocytes # (0.90-5.00) 10*3/uL Monocytes # (0.20-1.00) 10*3/uL Eosinophils # (0.04-0.35) 10*3/uL Basophils # (0.00-0.10) 10*3/uL Sodium (137-145) mmol/L Potassium (3.5-5.1) mmol/L Chloride (98-107) mmol/L Carbon Dioxide (22-30) mmol/L Anion Gap mmol/L BUN (7-17) mg/dL Creatinine (0.52-1.04) mg/dL Est GFR (CKD-EPI)AfAm (>60 ml/min/1.73 sqM) Est GFR (CKD-EPI)NonAf (>60 ml/min/1.73 sqM) Glucose (74-99) mg/dL Calcium (8.4-10.2) mg/dL Total Bilirubin (0.2-1.3) mg/dL AST (14-36) U/L ALT (4-34) U/L Alkaline Phosphatase (38-126) U/L NT-Pro-B Natriuret Pep 1270 pg/mL Total Protein (6.3-8.2) g/dL Albumin (3.5-5.0) g/dL Influenza Type A (PCR) (Not Detectd) Influenza Type B (PCR) (Not Detectd) RSV (PCR) (Not Detectd) SARS-CoV-2 (PCR) (Not Detectd) - EKG Data -: EKG Interpreted by Me EKG Comments: EKG completed at 10: 25 showing a sinus rhythm. Ventricular rate 70, MN interval 138, QRS duration 90, QT/QTc 378/399 - Radiology Data Radiology results: report reviewed, image reviewed Disposition Clinical Impression: Cough, Viral illness Disposition: HOME SELF-CARE Condition: Stable Additional Instructions: Follow-up with PCP. Return to the ER for any new or worsening concerns. Prescriptions: Benzonatate [Tessalon Perles] 100 mg PO TID PRN #15 capsule PRN Reason: Cough Albuterol Nebulized [Ventolin Nebulized] 2.5 mg INHALATION Q4H PRN #75 ml PRN Reason: difficulty in breathing Is patient prescribed a controlled substance at d/c from ED?: No Referrals: Gelacio Wetzel MD [Primary Care Provider] - 1-2 days Time of Disposition: 14:10
[2025-02-27 10:56] LABS: Basophils # (A) 0.03 10*3/uL (0.00-0.10); Basophils % (A) 0.4 %; Eosinophils # (A) 0.04 10*3/uL (0.04-0.35); Eosinophils % (A) 0.5 %; HCT 37.9 % (37.2-46.3); HGB 12.8 g/dL (12.0-15.0); Lymphocytes % (A) 9.6 %; MCH 32.2 pg (27.0-32.0); MCHC 33.8 g/dL (32.0-37.0); MCV 95.2 fL (80.0-97.0); Mean Platelet Volume 10.8 fL (9.5-12.2); Monocytes # (A) 0.23 10*3/uL (0.20-1.00); Monocytes % (A) 2.7 %; Neutrophils # (A) 7.19 10*3/uL (1.80-7.70); Neutrophils % (A) 85.8 %; Platelet Count 187 10*3/uL (140-440); RBC 3.98 10*6/uL (4.10-5.20); RDW 13.5 % (11.5-14.5); WBC 8.37 10*3/uL (4.50-10.00)
--- NOTE | 2025-02-27 11:02 | XR ---
EXAMINATION TYPE: XR chest 2V DATE OF EXAM: 02/27/2025 10:48 AM COMPARISON: Chest radiographs from 11/13/2024. CLINICAL INDICATION: Female, 79 years old with history of cough wheezing; [facility] TECHNIQUE: XR chest 2V Frontal and lateral views of the chest. FINDINGS: Lungs/Pleura: There is flattening of the diaphragm with increased lucency of the lungs. No evidence o f pneumothorax, pleural effusion or focal consolidation. Pulmonary vascularity: Unremarkable. Heart/mediastinum: Cardiomediastinal silhouette is unremarkable. Musculoskeletal: No acute osseous pathology. There is fixation hardware in the lower cervical spine. Scoliosis changes of the spine. Other findings: None IMPRESSION: 1. No acute cardiopulmonary disease process. 2. COPD changes. [facility], , 02/27/2025 10:59 AM
[2025-02-27 11:08] LABS: ALT 28 U/L (4-34); AST 32 U/L (14-36); African American GFR (CKD) 86 (>60 ml/min/1.73 sqM); Albumin 4.6 g/dL (3.5-5.0); Alkaline Phosphatase 102 U/L (38-126); Anion Gap 11 mmol/L; Blood Urea Nitrogen 24 mg/dL (7-17); Calcium 9.9 mg/dL (8.4-10.2); Carbon Dioxide 20 mmol/L (22-30); Chloride 105 mmol/L (98-107); Glucose 159 mg/dL (74-99); Non-African American GFR(CKD) 74 (>60 ml/min/1.73 sqM); Potassium 4.4 mmol/L (3.5-5.1); Sodium 136 mmol/L (137-145); Total Bilirubin 0.5 mg/dL (0.2-1.3); Total Protein 7.1 g/dL (6.3-8.2)
[2025-02-27] MEDS: IPRATROPIUM-ALBUTEROL 3 ML NEB INHALATION STA ×2 (11:13→13:36)
[2025-02-27 11:32] LABS: Influenza A Not Detected (Not Detectd); Influenza B Not Detected (Not Detectd); RSV Not Detected (Not Detectd)
[2025-02-27 14:27] VITALS: BP 125/56; PULSE 82
== END 2025-02-27 14:30 | disposition home or self-care (01) ==
LOC: EC 10:10
DX: R05.9 Cough, unspecified (principal); B34.9 Viral infection, unspecified; J44.9 Chronic obstructive pulmonary disease, unspecified; J45.909 Unspecified asthma, uncomplicated; Z88.5 Allergy status to narcotic agent; Z91.048 Other nonmedicinal substance allergy status; Z88.1 Allergy status to other antibiotic agents
CPT/HCPCS: 36415; 71046; 80053; 83880; 85025; 87636; 93005; 94640; 99285